=== PATIENT | female | born 1990 | race Caucasian/White ===

== ENCOUNTER 2018-08-05 17:22 | Emergency (ER) | payer OTHER ==
[~2018-08-05] VITALS: Ht 172.7 cm; Wt 94.4 kg
[~2018-08-05 17:22] MED LIST: ANUS2.5C2 EXT; DOCU5LIQ PO; IBUP600T26 PO; MAPA500T17 PO; MILK10SU PO; PRENTAB74 PO
[2018-08-05] MEDS ORDERED: MACR100C43 PO (20:19)
[2018-08-05 20:35] VITALS: BP 114/64
[2018-08-05 22:21] LABS: CHLAMYDIA DNA AMPLIFICATION POSITIVE (NEGATIVE); GC DNA AMPLIFICATION NEGATIVE (NEGATIVE)
== END 2018-08-05 20:36 | disposition home or self-care (01) ==
LOC: M ED 17:22
DX: N39.0 Urinary tract infection, site not specified (principal); N76.0 Acute vaginitis; Z86.19 Personal history of other infectious and parasitic diseases; Z87.59 Personal history of other complications of pregnancy, childbirth and the puerperium

== ENCOUNTER 2019-02-18 06:25 | Emergency (ER) | payer OTHER ==
[~2019-02-18] VITALS: Ht 172.7 cm; Wt 81.8 kg
[~2019-02-18 06:25] MED LIST changes: +MACR100C43 PO
[2019-02-18] MEDS ORDERED: SILVER NITRATE APPLICATOR TOP ONE (07:30)
[2019-02-18 07:49] VITALS: BP 103/66
== END 2019-02-18 07:45 | disposition home or self-care (01) ==
LOC: M ED 06:25
DX: R04.0 Epistaxis (principal)

== ENCOUNTER 2019-04-21 13:28 | Emergency (ER) | payer OTHER ==
[~2019-04-21] VITALS: Ht 172.7 cm; Wt 90.4 kg
[2019-04-21 16:39] LABS: BASO % 0.3 % (0.0-1.0); EOS # 0.1 10^3/uL (0.0-0.5); EOS % 1.8 % (0.0-3.0); HEMATOCRIT 40.4 % (36.0-47.0); HEMOGLOBIN 13.2 g/dl (12.0-15.5); LYMPH # 1.7 10^3/uL (1.5-5.0); LYMPH % 28.9 % (24.0-44.0); MEAN CORPUSCULAR HEMOGLOBIN 30.9 pg (27.0-33.0); MEAN CORPUSCULAR HGB CONC 32.7 g/dl (32.0-36.5); MEAN CORPUSCULAR VOLUME 94.6 fl (80.0-96.0); MONO # 0.3 10^3/uL (0.0-0.8); MONO % 5.5 % (0.0-5.0); NEUTROPHILS # 3.8 10^3/uL (1.5-8.5); NEUTROPHILS % 63.2 % (36.0-66.0); PLATELET COUNT, AUTOMATED 219 10^3/uL (150-450); RED BLOOD COUNT 4.27 10^6/uL (4.00-5.40)
--- NOTE | 2019-04-21 17:29 | REP ---
Left tib-fib series: Four views. History: Anterior edema. Findings: Four views of the left calf demonstrate normal bones, joints. There is mild anterolateral soft tissue swelling at mid calf level. No opaque foreign body is seen. No evidence of fracture noted. Impression: No fracture noted. Electronically Signed by Sg Coles MD 04/21/2019 05:20 P
[2019-04-21] MEDS ORDERED: KEFL500C17 PO (17:50)
[2019-04-21 17:58] VITALS: BP 115/57
== END 2019-04-21 18:05 | disposition home or self-care (01) ==
LOC: M ED 13:28
DX: L03.116 Cellulitis of left lower limb (principal)

== ENCOUNTER → 2020-05-15 | Outpatient (REF) | payer OTHER ==
[~2020-05-15] MED LIST changes: +KEFL500C17 PO
[2020-05-15 12:13] LABS: BASO % 0.2 % (0.0-1.0); EOS # 0.1 10^3/uL (0.0-0.5); EOS % 1.4 % (0.0-3.0); HEMATOCRIT 41.8 % (36.0-47.0); HEMOGLOBIN 12.9 g/dl (12.0-15.5); LYMPH # 1.3 10^3/uL (1.5-5.0); LYMPH % 23.7 % (24.0-44.0); MEAN CORPUSCULAR HEMOGLOBIN 30.3 pg (27.0-33.0); MEAN CORPUSCULAR HGB CONC 30.9 g/dl (32.0-36.5); MEAN CORPUSCULAR VOLUME 98.1 fl (80.0-96.0); MONO # 0.4 10^3/uL (0.0-0.8); MONO % 6.8 % (2.0-8.0); NEUTROPHILS # 3.8 10^3/uL (1.5-8.5); NEUTROPHILS % 67.5 % (36.0-66.0); PLATELET COUNT, AUTOMATED 153 10^3/uL (150-450); RED BLOOD COUNT 4.26 10^6/uL (4.00-5.40); WHITE BLOOD COUNT 5.6 10^3/uL (4.0-10.0)
[2020-05-15 13:35] LABS: ALBUMIN 3.6 GM/DL (3.2-5.2); ALT/SGPT 18 U/L (12-78); BILIRUBIN,TOTAL 0.3 MG/DL (0.2-1.0); BLOOD UREA NITROGEN 12 MG/DL (7-18); CALCIUM LEVEL 8.5 MG/DL (8.5-10.1); CARBON DIOXIDE LEVEL 26 MEQ/L (21-32); CHLORIDE LEVEL 108 MEQ/L (98-107); CHOLESTEROL LEVEL 172 MG/DL (<200); CHOLESTEROL RISK RATIO 3.071 (<5); CREATININE FOR GFR 0.88 MG/DL (0.55-1.30); GLOMERULAR FILTRATION RATE > 60.0 (>60); GLUCOSE, FASTING 98 MG/DL (70-100); HDL CHOLESTEROL 56 MG/DL (>40); LDL CHOLESTEROL 103 MG/DL (<100); NON-HDL-C 116 MG/DL; POTASSIUM SERUM 4.4 MEQ/L (3.5-5.1); SODIUM LEVEL 138 MEQ/L (136-145); TOTAL PROTEIN 6.8 GM/DL (6.4-8.2); TRIGLYCERIDES LEVEL 65 MG/DL (<150)
[2020-05-15 18:15] LABS: HEMOGLOBIN A1c 5.2 %
== END ==
LOC: M LAB REF 11:46
PROVIDERS: ATTEND Physician Assistant
DX: K59.00 Constipation, unspecified (principal); E66.9 Obesity, unspecified; Z13.228 Encounter for screening for other metabolic disorders

== ENCOUNTER → 2020-06-19 | Outpatient (CLI) | payer OTHER ==
--- NOTE | 2020-06-19 09:33 | REP ---
INDICATION: CERVICALGIA AND OTHER CHRONIC PAIN. COMPARISON: None. TECHNIQUE: Plain films of the thoracic spine include AP and lateral views. FINDINGS: No evidence of fracture or malalignment. Vertebral heights and disc heights overall appear preserved. Soft tissues appear grossly unremarkable. IMPRESSION: No acute findings. Normal for age thoracic spine. <Electronically signed by Tobias Del Valle > 06/19/20 0995
--- NOTE | 2020-06-19 09:34 | REP ---
INDICATION: CERVICALGIA AND OTHER CHRONIC PAIN. COMPARISON: None. TECHNIQUE: Plain films of the cervical spine include AP lateral and odontoid views. FINDINGS: There is straightening of the cervical spine and mild reversal of normal cervical lordosis. No evidence of fracture or malalignment. Vertebral heights and disc heights are overall preserved. Prevertebral soft tissues appear unremarkable. IMPRESSION: No acute findings. Normal cervical spine. <Electronically signed by Tobias Del Valle > 06/19/20 0931
--- NOTE | 2020-06-19 09:35 | REP ---
INDICATION: CERVICALGIA AND OTHER CHRONIC PAIN. COMPARISON: None. TECHNIQUE: Plain films of the lumbar spine include AP and lateral views. FINDINGS: No fracture or malalignment. Vertebral heights and disc heights appear preserved. No evidence of osseous foraminal narrowing. IMPRESSION: No acute findings. Normal examination. <Electronically signed by Tobias Del Valle > 06/19/20 0989
== END ==
LOC: M WUC 08:43
PROVIDERS: ATTEND Physician Assistant
DX: G89.29 Other chronic pain (principal); M54.2 Cervicalgia

== ENCOUNTER → 2020-08-25 | Outpatient (CLI) | payer OTHER ==
[~2020-08-25] MED LIST changes: +OMEP-221 PO
== END ==
LOC: M LABSMTC 08:04
PROVIDERS: ATTEND Anesthesiology
DX: Z11.52 Encounter for screening for COVID-19 (principal)

== ENCOUNTER 2020-08-30 09:00 | Day surgery (SDC) | payer OTHER ==
[~2020-08-30] VITALS: Ht 172.7 cm; Wt 91.2 kg
[~2020-08-30 09:00] MED LIST changes: +NS 1,000 ML IV ONE
[2020-08-30] MEDS ORDERED: propofoL 200 MG/20 ML VIAL As Ordered ONE (09:33)
[2020-08-30] MEDS ORDERED: fentaNYL 100 MCG/2 ML INJECTION (J3010) As Ordered ONE (09:33)
--- NOTE | 2020-08-30 09:53 | ROOR ---
Patient Name: Elisa Mohamud Procedure Date: 08/30/2020 9:41 AM Date of : 1990 Age: 30 Room: [facility] Gender: Female Note Status: Finalized Procedure: Upper GI endoscopy Indications: Suspected esophageal reflux Providers: Elias Stoddard Jr, MD Referring MD: Duc New Requesting Provider: Medicines: Propofol per Anesthesia Complications: No immediate complications. Procedure: Pre-Anesthesia Assessment: - Prior to the procedure, a History and Physical was performed, and patient medications and allergies were reviewed. The patient is competent. The risks and benefits of the procedure and the sedation options and risks were discussed with the patient. All questions were answered and informed consent was obtained. Patient identification and proposed procedure were verified by the physician and the nurse in the pre-procedure area and in the procedure room. Mental Status Examination: alert and oriented. Airway Examination: normal oropharyngeal airway and neck mobility. Respiratory Examination: clear to auscultation. CV Examination: normal. ASA Grade Assessment: II - A patient with mild systemic disease. After reviewing the risks and benefits, the patient was deemed in satisfactory condition to undergo the procedure. The anesthesia plan was to use moderate sedation / analgesia (conscious sedation). Immediately prior to administration of medications, the patient was re-assessed for adequacy to receive sedatives. The heart rate, respiratory rate, oxygen saturations, blood pressure, adequacy of pulmonary ventilation, and response to care were monitored throughout the procedure. The physical status of the patient was re-assessed after the procedure. The Endoscope was introduced through the mouth, and advanced to the second part of duodenum. The upper GI endoscopy was accomplished without difficulty. The patient tolerated the procedure well. Findings: The upper third of the esophagus, middle third of the esophagus and lower third of the esophagus were normal. The cardia, gastric fundus, gastric body, gastric antrum and prepyloric region of the stomach were normal. Biopsies were taken with a cold forceps for histology. The duodenal bulb, first portion of the duodenum and second portion of the duodenum were normal. Impression: - Normal upper third of esophagus, middle third of esophagus and lower third of esophagus. - Normal cardia, gastric fundus, gastric body, antrum and prepyloric region of the stomach. Biopsied. - Normal duodenal bulb, first portion of the duodenum and second portion of the duodenum. Recommendation: - Discharge patient to home (ambulatory). - Return to my office as previously scheduled. Procedure Code(s): --- Professional --- 56742, Esophagogastroduodenoscopy, flexible, transoral; with biopsy, single or multiple Diagnosis Code(s): --- Professional --- K21.9, Gastro-esophageal reflux disease without esophagitis CPT copyright 2019 [employer]. All rights reserved. The codes documented in this report are preliminary and upon estate tax examiner review may be revised to meet current compliance requirements. Elias Stoddard MD Elias Stoddard Jr, MD 08/30/2020 9:53:11 AM Electronically signed by Elias Stoddard Jr, MD Number of Addenda: 0 Note Initiated On: 08/30/2020 9:41 AM Estimated Blood Loss: Estimated blood loss: none.
--- NOTE | 2020-08-30 10:04 | ROOR ---
Patient Name: Elisa Mohamud Procedure Date: 08/30/2020 9:42 AM Date of : 1990 Age: 30 Room: [facility] Gender: Female Note Status: Finalized Procedure: Colonoscopy Indications: Rectal bleeding, Constipation Providers: Elias Stoddard Jr, MD Referring MD: Duc New Requesting Provider: Medicines: Propofol per Anesthesia Complications: No immediate complications. Procedure: Pre-Anesthesia Assessment: - Prior to the procedure, a History and Physical was performed, and patient medications and allergies were reviewed. The patient is competent. The risks and benefits of the procedure and the sedation options and risks were discussed with the patient. All questions were answered and informed consent was obtained. Patient identification and proposed procedure were verified by the physician and the nurse in the pre-procedure area and in the procedure room. Mental Status Examination: alert and oriented. Airway Examination: normal oropharyngeal airway and neck mobility. Respiratory Examination: clear to auscultation. CV Examination: normal. ASA Grade Assessment: II - A patient with mild systemic disease. After reviewing the risks and benefits, the patient was deemed in satisfactory condition to undergo the procedure. The anesthesia plan was to use moderate sedation / analgesia (conscious sedation). Immediately prior to administration of medications, the patient was re-assessed for adequacy to receive sedatives. The heart rate, respiratory rate, oxygen saturations, blood pressure, adequacy of pulmonary ventilation, and response to care were monitored throughout the procedure. The physical status of the patient was re-assessed after the procedure. The Colonoscope was introduced through the anus and advanced to the cecum, identified by appendiceal orifice and ileocecal valve. The colonoscopy was performed without difficulty. The patient tolerated the procedure well. The quality of the bowel preparation was adequate. Findings: The rectum, recto-sigmoid colon, sigmoid colon, descending colon, transverse colon, ascending colon, cecum, appendiceal orifice and ileocecal valve appeared normal. Non-bleeding internal hemorrhoids were found during endoscopy. The hemorrhoids were mild and small. Impression: - The rectum, recto-sigmoid colon, sigmoid colon, descending colon, transverse colon, ascending colon, cecum, appendiceal orifice and ileocecal valve are normal. - Non-bleeding internal hemorrhoids. - No specimens collected. Recommendation: - Return to my office as previously scheduled. Procedure Code(s): --- Professional --- 84754, Colonoscopy, flexible; diagnostic, including collection of specimen(s) by brushing or washing, when performed (separate procedure) Diagnosis Code(s): --- Professional --- K64.8, Other hemorrhoids K62.5, Hemorrhage of anus and rectum K59.00, Constipation, unspecified CPT copyright 2019 [employer]. All rights reserved. The codes documented in this report are preliminary and upon meals on wheels driver review may be revised to meet current compliance requirements. Elias Stoddard MD Elias Stoddard Jr, MD 08/30/2020 10:04:35 AM Electronically signed by Elias Stoddard Jr, MD Number of Addenda: 0 Note Initiated On: 08/30/2020 9:42 AM Estimated Blood Loss: Estimated blood loss: none.
[2020-08-30 10:25] VITALS: BP 122/57
== END 2020-08-30 10:30 | disposition home or self-care (01) ==
LOC: M OPP 09:00
PROVIDERS: ATTEND Surgery
DX: K62.5 Hemorrhage of anus and rectum (principal); K59.00 Constipation, unspecified; K64.8 Other hemorrhoids; R10.10 Upper abdominal pain, unspecified; K21.9 Gastro-esophageal reflux disease without esophagitis; R11.0 Nausea; F17.210 Nicotine dependence, cigarettes, uncomplicated
CPT/HCPCS: 43239; 45378; 88305; J3010

== ENCOUNTER → 2020-10-02 | Outpatient (CLI) | payer OTHER ==
[~2020-10-02] MED LIST changes: -NS 1,000 ML IV ONE; -OMEP-221 PO; +OMEP40CA5 PO
== END ==
LOC: M RAD 06:58
PROVIDERS: ATTEND Physician Assistant
DX: K80.20 Calculus of gallbladder without cholecystitis without obstruction (principal); R10.10 Upper abdominal pain, unspecified

== ENCOUNTER → 2020-11-01 | Outpatient (CLI) | payer OTHER ==
[~2020-11-01] MED LIST changes: +OMEP-221 PO; -OMEP40CA5 PO
== END ==
LOC: M LABSMTC 09:04
PROVIDERS: ATTEND Anesthesiology
DX: Z11.52 Encounter for screening for COVID-19 (principal)

== ENCOUNTER 2020-11-06 07:08 | Day surgery (SDC) | payer OTHER ==
[~2020-11-06] VITALS: Ht 172.7 cm; Wt 93.8 kg
[~2020-11-06 07:08] MED LIST changes: +LR 1,000 ML IV SCH; +ceFAZolin SOD 1 GM in D5W MINI-BAG PLUS 50 ML IV SCH
[2020-11-06] MEDS ORDERED: BUPIVACAINE/EPIN 0.25% 30 ML VIAL As Ordered ONE (08:50)
[2020-11-06] MEDS ORDERED: ONDANSETRON 4MG/2ML VIAL As Ordered ONE (09:19)
[2020-11-06] MEDS ORDERED: LIDOCAINE 2% 100MG/5ML SDV (FOR ANES.) As Ordered ONE (09:19)
[2020-11-06] MEDS ORDERED: fentaNYL 250 MCG/5 ML INJECTION (J3010) As Ordered ONE (09:19)
[2020-11-06] MEDS ORDERED: SUGAMMADEX SODIUM 500 MG/5 ML VIAL (BRIDION) As Ordered ONE (09:19)
[2020-11-06] MEDS ORDERED: KETOROLAC 60MG 2ML VIAL As Ordered ONE (09:19)
[2020-11-06] MEDS ORDERED: propofoL 200 MG/20 ML VIAL As Ordered ONE (09:19)
[2020-11-06] MEDS ORDERED: ROCURONIUM BROMIDE 50 MG/5 ML VIAL As Ordered ONE (09:19)
[2020-11-06] MEDS ORDERED: dexameTHASONE 4 MG/ML 1ML VIAL (J1100 PER 1MG) As Ordered ONE (09:19)
[2020-11-06] MEDS ORDERED: MIDAZOLAM INJ 2MG/2ML VIAL (J2250 PER 1MG) As Ordered ONE (09:19)
[2020-11-06] MEDS ORDERED: ACETAMINOPHEN 1000MG 100ML IV BTL (OFIRMEV) (J0131 PER 10MG) As Ordered ONE (09:23)
[2020-11-06] MEDS ORDERED: PHENYLephrine 500MCG 5ML (100MCG/ML) SYRINGE As Ordered ONE (09:53)
[2020-11-06] MEDS ORDERED: oxyCODONE 5MG TAB PO PRN (10:25)
[2020-11-06] MEDS ORDERED: traMADol 50 MG TAB PO PRN (10:25)
[2020-11-06] MEDS ORDERED: LR 1,000 ML IV SCH (10:25)
[2020-11-06] MEDS ORDERED: fentaNYL 100 MCG/2 ML INJECTION (J3010) IV PRN (10:25)
[2020-11-06] MEDS ORDERED: ONDANSETRON 4MG/2ML VIAL IV PRN (10:25)
[2020-11-06] MEDS ORDERED: NS 1,000 ML IV SCH (10:30)
--- NOTE | 2020-11-06 10:33 | RO ---
OPERATIVE NOTE DATE OF OPERATION: 11/06/2020 PREOPERATIVE DIAGNOSIS: Acute cholecystitis. POSTOPERATIVE DIAGNOSIS: Acute cholecystitis. PROCEDURE: Laparoscopic cholecystectomy. SURGEON: Elias Stoddard Jr., MD. STATEMENT CLERKS SUPERVISOR: ANESTHESIA: General endotracheal anesthesia. EBL: Minimal. FLUIDS: Crystalloid. BRIEF PROCEDURE SUMMARY: Patient was brought to the operating room and was given general anesthesia. After adequate anesthesia was given, the patient was prepped and draped in the usual sterile fashion. Next, a supraumbilical incision was made with the skin knife. Blunt dissection was carried down to fascia. Fascia was entered with Veress needle, and Veress needle insufflated to 15 mmHg. A dilating 10 mm trocar was placed at this time, and under direct visualization an epigastric and two lateral trocars were placed. Next, the patient's gallbladder was grasped, retracted superiorly, and the neck of the gallbladder was cleared of peritoneum using hook cautery. The cystic artery was well visualized, followed up under the gallbladder, and the cystic duct was well visualized as well. Once a window overlying the neck of the gallbladder was created, cystic artery was clipped proximally and distally and transected. The cystic duct then was dissected even further at this point and clipped proximally and distally and transected. The gallbladder was removed from the gallbladder bed using electrocautery, placed in an Endo-Cath bag, and brought out through the umbilicus. 0 Vicryl was used to close the fascia at the umbilicus, and all incisions were closed with 4-0 Vicryl. Steri-Strips and a dry sterile dressing were applied. The patient was awakened, extubated, and brought to the recovery room awake, alert, and hemodynamically stable. Sponge and needle counts were correct x2.
[2020-11-06 11:25] VITALS: BP 123/68
== END 2020-11-06 11:28 | disposition home or self-care (01) ==
LOC: M SDC 07:08
PROVIDERS: ATTEND Surgery
DX: K80.10 Calculus of gallbladder with chronic cholecystitis without obstruction (principal); F41.9 Anxiety disorder, unspecified; F32.9 Major depressive disorder, single episode, unspecified; R12 Heartburn; M54.9 Dorsalgia, unspecified; R21 Rash and other nonspecific skin eruption; R06.83 Snoring; F17.210 Nicotine dependence, cigarettes, uncomplicated; Z79.899 Other long term (current) drug therapy; F12.90 Cannabis use, unspecified, uncomplicated
CPT/HCPCS: 47562; 81025; 88304; J0131; J0690; J1100; J1885; J2250; J2370; J2405; J3010

== ENCOUNTER 2020-12-18 08:50 | Emergency (ER) | payer OTHER ==
[~2020-12-18] VITALS: Ht 175.3 cm; Wt 88.6 kg
[~2020-12-18 08:50] MED LIST changes: -LR 1,000 ML IV SCH; -ceFAZolin SOD 1 GM in D5W MINI-BAG PLUS 50 ML IV SCH
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
--- OUTSIDE RECORDS SUMMARY | 2020-12-18 08:57 | CCD | Continuity of Care Document ---
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 AUTM Problems Description No Information Available Social History Type Date Description Comments Sex Unknown ETOH Use Denies alcohol use Tobacco Use Start: Unknown Patient is a current smoker, smo kes every day x4 years Recreational Drug Use Regularly uses Marijuana Allergies, Adverse Reactions, Alerts Description No Known Drug Allergies Medications Active Medications SIG Qnty Indications Ordering Provide r Date Colace 100mg Capsules 1 by mouth twice a day as needed 60caps K80.10 Preet Mancini M.D. 11/20/2020 Tramadol HCL 50mg Tablets 1-2 every 6 hours as needed for pain after surgery 14tabs Elias matta JR, MD 11/06/[address] Take 1 Capsule By Mouth Once Daily Unknown History Medications Miralax 17GM/Scoop Powder use as instructed by doctor for bowel prep 238gm Elias james JR, MD 08/28/2020 - 08/28/[address] as instructed per bowel prep 4tabs Elias Stoddard JR, MD 08/28/2020 - 08/28/2020 Suprep Bowel Prep Kit 17.5-3.13-1.6GM/177ML Solution take per doctor's bowel prep instructions. 354ml Preet Mancini M.D. 08/16/2020 - 09/10/2020 Immunizations Description No Information Available Vital Signs Date Vital Result Comment 11/20/2020 9:09am BP Systolic 120 mmHg BP Diastolic 58 mmHg Body Temperature 98.6 F Height 68 inches 5'8" Weight 196.25 lb BMI (Body Mass Index) 29.8 kg/m2 [place] Body Weight 140 lb Weight 89.019 kg BSA (Body Surface Area) 2.03 m2 10/03/2020 8:43am BP Systolic 119 mmHg BP Diastolic 76 mmHg Heart Rate 74 /min Body Temperature 98.5 F Height 68 inches 5'8" Weight 207.50 lb BMI (Body Mass Index) 31.5 kg/m2 [place] Body Weight 140 lb Weight 94.122 kg BSA (Body Surface Area) 2.08 m2 Results Test Acquired Date Facility Test Result H/L [place] Note Laboratory test finding 11/06/2020 [facility] [address] [place] [address] [phone] Pathology Request For Service (SEE NOTE) 1 Laboratory test finding 08/30/2020 [facility] [address] [place] [address] [phone] Pathology Request For Service (SEE NOTE) 2 1 FINAL DIAGNOSIS Gallbladder, cholecystectomy: Cholelithiasis and chronic cholecystitis. 11/07/2020 - 1009 CLINICAL DIAGNOSIS Gallstones 11/06/2020 - 1330 GROSS DIAGNOSIS Received in formalin labeled "gallbladder and content" is an approximately 7 x 4 x 2 cm gallbladder. The serosal lining is smooth. The lumen contains a 1 cm green gallstone. The mucosal lining is smooth. The wall is maximally 0.8 cm in thickness. Vamp Marker in one. -SH 11/06/2020 - 1330 Signed Asher Perez MD 11/07/2020 1125 2 FINAL DIAGNOSIS Stomach, antral biopsy: Gastric mucosa with minimal inflammation and reactive changes. No H.pylori is identified. 08/31/2020 - 1232 CLINICAL DIAGNOSIS Gastroesophageal reflux, rectal pain, bleeding 08/30/2020 - 1504 GROSS DIAGNOSIS Received in formalin labeled "antral biopsy" and consists of fragments of tissue, 0.1 x 0.1 x 0.1 cm. All in one. -OA 08/31/2020 - 1232 Signed JAY BLOCK MD 08/31/2020 1233 Procedures Date Code Description Status 11/06/2020 86138 Laparoscopy,Surgical;Cholecystec tressa Completed 10/03/2020 08910 Office/Outpatient Established Mo d MDM 30-39 Min Completed 09/13/2020 39820 Office/Outpatient Established Mo d MDM 30-39 Min Completed 08/30/2020 53431 Colonoscopy Flexible Proximal To Splenic Flexure Diagnostic W/Or Completed 08/30/2020 90341 Endoscopy Upper GI Biopsy Comple zac 07/04/2020 68834 Office/Outpatient New Moderate M DM 45-59 Minutes Completed Medical Devices Description No Information Available Encounters Type Date Location Provider Dx Diagnosis Office Visit 11/20/2020 9:00a [facility] SOHAIL Roche K80.10 Calculus of gallbladder w chronic cholec yst w/o obstruction Z48.815 Encntr for surgical aftcr fo llowing surgery on the dgstv sys Z90.49 Acquired absence of other sp ecified parts of digestive tract Office Visit 10/03/2020 8:45a [facility] Elias matta JR, MD K80.20 Calculus of gallbladder w/o cholecystiti s w/o obstruction Office Visit 09/13/2020 10:00a [facility] SOHAIL Roche R10.10 Upper abdominal pain, unspecified K21.9 Gastro-esophageal reflux dis ease without esophagitis K59.00 Constipation, unspecified Office Visit 07/04/2020 9:15a [facility] SOHAIL Roche K21.9 Gastro-esophageal reflux disease without esophagitis R10.10 Upper abdominal pain, unspec ified K59.00 Constipation, unspecified K62.5 Hemorrhage of anus and rectu m Assessments Date Code Description Provider 11/20/2020 K80.10 Calculus of gallblad majo with chronic cholecystitis without obstruction SOHAIL Thorpe 11/20/2020 Z48.815 Encounter for surgic al aftercare following surgery on the digestive system SOHAIL Thorpe 11/20/2020 Z90.49 Acquired absence of other specif ied parts of digestive tract SOHAIL Thorpe 11/06/2020 K80.10 Calculus of gallblad majo with chronic cholecystitis without obstruction Elias Stoddard JR, MD 10/03/2020 K80.20 Calculus of gallblad majo without cholecystitis without obstruction Elias Stoddard JR, MD 09/13/2020 R10.10 Upper abdominal pain, unspecifie d SOHAIL Thorpe 09/13/2020 K21.9 Gastro-esophageal reflux disease without esophagitis SOHAIL Thorpe 09/13/2020 K59.00 Constipation, unspecified SOHAIL Thorpe 08/30/2020 K62.5 Hemorrhage of anus and rectum Adele Stoddard JR, MD 08/30/2020 K64.8 Other hemorrhoids Elias rubi JR, MD 08/30/2020 K59.00 Constipation, unspecified Elias Stoddard JR, MD 08/30/2020 K21.9 Gastro-esophageal reflux disease without esophagitis Elias Stoddard JR, MD 07/04/2020 K21.9 Gastro-esophageal reflux disease without esophagitis SOHAIL Thorpe 07/04/2020 R10.10 Upper abdominal pain, unspecifie d SOHAIL Thorpe 07/04/2020 K59.00 Constipation, unspecified SOHAIL Thorpe 07/04/2020 K62.5 Hemorrhage of anus and rectum SOHAIL Rouse Plan of Treatment 11/20/2020 - SOHAIL Thorpe* K80.10 Calculus of gallbladder with chronic cholecystitis without obstruction* New Medication:* Colace 100 mg - 1 by mouth twice a day as needed * Z48.815 Encounter for surgical aftercare following surgery on the digestive system * Z90.49 Acquired absence of other specified parts of digestive tract Functional Status Description No Information Available Mental Status Description No Information Available Referrals Description No Information Available
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
--- OUTSIDE RECORDS SUMMARY | 2020-12-18 08:57 | CCD | Continuity of Care Document ---
Author Author Daisy ANDREA P.T. 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 Phone Nancy Amato AUTM [phone] Problems Description No Information Available Social History Type Date Description Comments Sex Unknown Allergies and adverse reactions Description No Known Drug Allergies Medications Active Medications SIG Qnty Indications Ordering Provide r Date Omeprazole 10mg Capsules DR Alexis Immunizations Description No Information Available Vital Signs Date Vital Result Comment 10/03/2020 11:46am Height 68 inches 5'8" Weight 206.00 lb BMI (Body Mass Index) 31.3 kg/m2 Results Description No Information Available Procedures Date Code Description Status 11/01/2020 06445 Manual Therapy Each 15 Minutes C ompleted 11/01/2020 57568 Therapeutic Procedure, Each 15 M inutes Completed 10/29/2020 24768 Manual Therapy Each 15 Minutes C ompleted 10/29/2020 41229 Therapeutic Procedure, Each 15 M inutes Completed 10/29/2020 34297 Hot Or Cold Packs Completed 10/25/2020 16402 Manual Therapy Each 15 Minutes C ompleted 10/25/2020 48690 Therapeutic Procedure, Each 15 M inutes Completed 10/25/2020 00289 Hot Or Cold Packs Completed 10/23/2020 05965 Manual Therapy Each 15 Minutes C ompleted 10/23/2020 23890 Therapeutic Procedure, Each 15 M inutes Completed 10/15/2020 97822 Physical Therapy Eval - Low Comp lexity Completed 10/03/2020 63238 Office/Outpatient New Moderate M DM 45-59 Minutes Completed Medical Devices Description No Information Available Encounters Type Date Location Provider Dx Diagnosis Office Visit 10/03/2020 11:30a [facility] Jama Camargo MD M54.2 Cervicalgia M54.5 Low back pain M47.892 Other spondylosis, cervical region M51.36 Other intervertebral disc de generation, lumbar region Assessments Date Code Description Provider 11/01/2020 M54.2 Cervicalgia Danamarie Ortola no, [employer] 11/01/2020 M54.5 Low back pain Danamarie Ortola no, [employer] 10/29/2020 M54.2 Cervicalgia Danamarie Ortola no, [employer] 10/29/2020 M54.5 Low back pain Danamarie Ortola no, [employer] 10/25/2020 M54.2 Cervicalgia Danamarie Ortola no, [employer] 10/25/2020 M54.5 Low back pain Danamarie Ortola no, [employer] 10/23/2020 M54.2 Cervicalgia Danamarie Ortola no, [employer] 10/23/2020 M54.5 Low back pain Danamarie Ortola no, [employer] 10/15/2020 M54.2 Cervicalgia Tra Andrea P .T. 10/15/2020 M54.5 Low back pain Tra Andrea P .T. 10/03/2020 M54.2 Cervicalgia Jama Camargo MD 10/03/2020 M54.5 Low back pain Jama Camargo MD 10/03/2020 M47.892 Other spondylosis, cervical christi on Jama Camargo MD 10/03/2020 M51.36 Other intervertebral disc degene ration, lumbar region Jama Camargo MD Plan of Treatment Future Appointment(s):* 12/14/2020 10:00 am - Dipika Lomelie P.T.A. at Physical Therapy * 12/11/2020 9:30 am - Dipika Pedroza P.T.A. at Physical Therapy Functional Status Description No Information Available Mental Status Description No Information Available Referrals Refer to Dr Reason for Referral Status Appt Date Jama Camargo MD PT - 10 VISITS OK'D FOR CS/L S FROM 10/17-01/15/21, AUTH# [id number], RES# [id number] Created [address] [place] [address], [address] [place] [phone] Jama Camargo MD Physical Therapy spine patie nt is allowed eval then need auth to PT dept, patient is going to [facility], passed to PT dept sw. Created [address] [place] [address], [address] [phone]
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
--- OUTSIDE RECORDS SUMMARY | 2020-12-18 08:57 | CCD | Continuity of Care Document ---
Author Author Elisa GUIDRY [place] Organization Unknown Address [address] [facility] [address] [place] [address] Phone [phone] Care Team Providers Care Mortarman Name Role Phone Marva Lynn P.A.-C. AUTM [...] SIG Qnty Indications Ordering Provide r Date Tramadol HCL 50mg Tablets 1-2 every 6 [...] lb BMI (Body Mass Index) 29.8 kg/m2 [place] Body Weight 140 lb Weight 89.019 kg BSA (Body Surface Area) 2.03 m2 10/03/2020 8:43am BP Systolic 119 mmHg BP Diastolic 76 mmHg Heart Rate 74 /min Body Temperature 98.5 F Height 68 inches 5'8" Weight 207.50 lb BMI (Body Mass Index) 31.5 kg/m2 [place] Body Weight 140 lb Weight 94.122 kg BSA (Body Surface Area) 2.08 m2 Results Test Acquired Date Facility Test Result H/L Range Note Laboratory test finding 11/06/2020 [facility] Main Lab [address] [place] [address] [phone] Pathology Request For Service (SEE NOTE) 1 Laboratory test finding 08/30/2020 [facility] Lab [address] [place] [address] [phone] Pathology Request For Service (SEE NOTE) 2 [...] wall is maximally 0.8 cm in thickness. Journeyman Apprentice Electricians in one. -SH 11/06/2020 - 1330 Signed Asher Perez MD 11/07/2020 1125 2 FINAL DIAGNOSIS Stomach, antral biopsy: Gastric mucosa with minimal inflammation and reactive changes. No H.pylori is identified. 08/31/2020 - 123 CLINICAL DIAGNOSIS Gastroesophageal reflux, rectal pain, bleeding 08/30/2020 - 1504 GROSS DIAGNOSIS Received in formalin labeled "antral biopsy" and consists of fragments of tissue, 0.1 x 0.1 x 0.1 cm. All in one. -OA 08/31/2020 - 1232 Signed JAY BLOCK MD 08/31/2020 1233 Procedures Date Code Description Status 11/06/2020 32959 Laparoscopy,Surgical;Cholecystec tressa Completed 10/03/2020 87609 Office/Outpatient Established Mo d MDM 30-39 Min Completed 09/13/2020 64224 Office/Outpatient Established Mo d MDM 30-39 Min Completed 08/30/2020 90935 Colonoscopy Flexible Proximal To Splenic Flexure Diagnostic W/Or Completed 08/30/2020 62619 Endoscopy Upper GI Biopsy Comple zac 07/04/2020 44815 Office/Outpatient New Moderate M DM 45-59 Minutes Completed Medical Devices Description No Information Available Encounters Type Date Location Provider Dx Diagnosis Office Visit 10/03/2020 8:45a [facility] Elias matta JR, MD K80.20 Calculus of gallbladder w/o cholecystiti s w/o obstruction Office Visit 09/13/2020 10:00a [facility] SOHAIL Roche R10.10 Upper abdominal pain, unspecified K21.9 Gastro-esophageal reflux dis ease without esophagitis K59.00 Constipation, unspecified Office Visit 07/04/2020 9:15a [facility] SOHAIL Roche K21.9 Gastro-esophageal reflux disease without esophagitis R10.10 Upper abdominal pain, unspec ified K59.00 Constipation, unspecified K62.5 Hemorrhage of anus and rectu m Assessments Date Code Description Provider 11/06/2020 K80.10 Calculus of gallblad majo with [...] 08/30/2020 K21.9 Gastro-esophageal reflux disease without esophagitis lEias Stoddard JR, MD 07/04/2020 K21.9 Gastro-esophageal reflux disease without esophagitis SOHAIL Thorpe 07/04/2020 R10.10 Upper abdominal pain, unspecifie d SOHAIL Thorpe 07/04/2020 K59.00 Constipation, unspecified SOHAIL Thorpe 07/04/2020 K62.5 Hemorrhage of anus and rectum SOHAIL Rouse Plan of Treatment No Information Available Functional Status Description No Information Available Mental Status Description No Information Available Referrals Refer to Dr Reason for Referral Status Appt Date Preet Mancini M.D. GERD Scheduled 05/25/2020 [facility] [address] [place] [address] [phone]
--- OUTSIDE RECORDS SUMMARY | 2020-12-18 08:58 | CCD | Continuity of Care Document ---
Author Author Elisa STODDARD MD Organization Unknown Address [address] [address] Phone [phone] Care Team Providers Care Test Operator Name Role Phone Marva Lynn P.A.-C. AUTM [phone] Problems Description No Information Available Social History [...] Vital Signs Date Vital Result Comment 10/03/2020 8:43am BP Systolic 119 mmHg BP Diastolic 76 mmHg Heart Rate 74 /min Body Temperature 98.5 F Height 68 inches 5'8" Weight 207.50 lb BMI (Body Mass Index) 31.5 kg/m2 [place] Body Weight 140 lb Weight 94.122 kg BSA (Body Surface Area) 2.08 m2 09/13/2020 10:02am BP Systolic 114 mmHg BP Diastolic 58 mmHg Height 68 inches 5'8" Weight 209.25 lb BMI (Body Mass Index) 31.8 kg/m2 [place] Body Weight 140 lb Weight 94.916 kg BSA (Body Surface Area) 2.08 m2 Results Test Acquired Date Facility Test Result H/L Range Note Laboratory test finding 11/06/2020 [facility] Main Lab [address] [place], [place] [id number] [phone] Pathology Request For Service (SEE NOTE) 1 Laboratory test finding 08/30/2020 [facility] Main Lab [address] [place] [address] [phone] Pathology Request For Service (SEE NOTE) 2 [...] wall is maximally 0.8 cm in thickness. Greeting Card Writer in one. -SH 11/06/2020 - 1330 Signed [...] 08/31/2020 1233 Procedures Date Code Description Status 10/03/2020 37469 Office/Outpatient Established Mo d MDM 30-39 Min Completed 09/13/2020 24396 Office/Outpatient Established Mo d MDM 30-39 Min Completed 08/30/2020 49534 Colonoscopy Flexible Proximal To Splenic Flexure Diagnostic W/Or Completed 08/30/2020 81947 Endoscopy Upper GI Biopsy Comple zac 07/04/2020 02186 Office/Outpatient New Moderate M DM 45-59 Minutes Completed Medical Devices Description No Information Available Encounters Type Date Location Provider Dx Diagnosis Office Visit 10/03/2020 8:45a [facility] Elias matta JR, MD K80.20 Calculus of gallbladder w/o cholecystiti s w/o obstruction Office Visit 09/13/2020 10:00a [facility] SOHAIL Roche R10.10 Upper abdominal pain, unspecified K21.9 Gastro-esophageal reflux dis ease without esophagitis K59.00 Constipation, unspecified Office Visit 07/04/2020 9:15a [facility] SOHAIL Roche K21.9 Gastro-esophageal reflux disease without esophagitis R10.10 Upper abdominal pain, unspec ified K59.00 Constipation, unspecified K62.5 Hemorrhage of anus and rectu m Assessments Date Code Description Provider 10/03/2020 K80.20 Calculus of gallblad majo without [...] and rectum SOHAIL Rouse Plan of Treatment Future Appointment(s):* 11/20/2020 1:00 pm - SOHAIL Thorpe at [facility] 10/03/2020 - Elias Stoddard JR, MD* K80.20 Calculus of gallbladder without cholecystitis without obstruction* Comments:* The patient had an episode of right upper quadrant pain/epigastric pain associated with gallstones. The patient had evidence of cholecystitis without evidence of common bile duct obstruction. Given their symptomatic disease and evidence of gallstones would recommend laparoscopic cholecystectomy. The risks as well as benefits of operative intervention have been discussed extensively with the patient and they agreed to proceed with operative intervention as soon as possible. The risks include but are not limited to infection bleeding damage to surrounding structures including liver and pancreas and duodenum bile ducts or bowel and possible need for open operative intervention. Functional Status Description No Information Available Mental Status Description No Information Available Referrals Refer to Reason for Referral Status Appt Date Preet Mancini M.D. GERD Scheduled 05/25/2020 [facility] [address] [place] [address] [phone]
--- OUTSIDE RECORDS SUMMARY | 2020-12-18 08:58 | CCD | Continuity of Care Document ---
Author Author Daisy SNYDER SUPERVISOR BAKING Organization Unknown Address [address] [place] [address] Phone [phone] Care Team Providers Care Floor Layer Apprentice Name Role Phone AmatoNancy AUTM [phone] Problems Description No Information Available Social History Type Date Description Comments Sex Unknown Allergies, Adverse Reactions, Alerts Description No Known Drug Allergies Medications Active Medications SIG Qnty Indications Ordering Provide r Date Omeprazole 10mg Capsules DR Aelxis Immunizations Description No Information Available Vital Signs Date Vital Result Comment 10/03/2020 11:46am Height 68 inches 5'8" Weight 206.00 lb BMI (Body Mass Index) 31.3 kg/m2 Results Description No Information Available Procedures Date Code Description Status 10/23/2020 68694 Manual Therapy Each 15 Minutes C ompleted 10/23/2020 56824 Therapeutic Procedure, Each 15 M inutes Completed 10/15/2020 61183 Physical Therapy Eval - Low Comp lexity Completed 10/03/2020 54250 Office/Outpatient New Moderate M DM 45-59 Minutes Completed Medical Devices Description No Information Available Encounters Type Date Location Provider Dx Diagnosis Office Visit 10/03/2020 11:30a [place] Jama Camargo MD M54.2 Cervicalgia M54.5 Low back pain M47.892 Other spondylosis, cervical region M51.36 Other intervertebral disc de generation, lumbar region Assessments Date Code Description Provider 10/23/2020 M54.2 Cervicalgia Danamarie Ortola no, SUPERVISOR BAKING 10/23/2020 M54.5 Low back pain Danamarie Ortola no, SUPERVISOR BAKING 10/15/2020 M54.2 Cervicalgia Tra Almaraz 10/15/2020 M54.5 Low back pain Tra Andrea P .T. 10/03/2020 M54.2 Cervicalgia Jama Camargo MD 10/03/2020 M54.5 Low back pain Jama Camargo MD 10/03/2020 M47.892 Other spondylosis, cervical christi on Jama Camargo MD 10/03/2020 M51.36 Other intervertebral disc degene ration, lumbar region Jama Camargo MD Plan of Treatment Future Appointment(s):* 10/29/2020 8:00 am - Ирина Snyder, SUPERVISOR BAKING at Physical Therapy * 11/01/2020 8:00 am - Ирина Snyder [employer]PERVISOR BAKING at Physical Therapy Functional Status Description No Information Available Mental Status Description No Information Available Referrals Refer to Dr Reason for Referral Status Appt Date Jama Camargo MD PT - 10 VISITS OK'D FOR CS/L S FROM 10/17-01/15/21, AUTH# [id number], RES# [id number] Created [address] [place] [phone] Jama Camargo MD Physical Therapy spine patie nt is allowed eval then need auth to PT dept, patient is going to [facility], passed to PT dept sw. Created [address] [place] [phone]
--- OUTSIDE RECORDS SUMMARY | 2020-12-18 08:58 | CCD | Continuity of Care Document ---
Author Author Elisa GUIDRY [place] Organization Unknown Address [address] [facility] [address] [place] [address] Phone [phone] Care Team Providers Care Collar Sewer Name Role Phone Marva Lynn P.A.-C. AUTM [phone] Problems Description No Information Available Social History Type Date Description Comments Sex Unknown ETOH Use Denies alcohol use Tobacco Use Start: Unknown Patient is a current smoker, smo kes every day x4 years Recreational Drug Use Regularly uses Marijuana Allergies, Adverse Reactions, Alerts Description No Known Drug Allergies Medications Active Medications SIG Qnty Indications Ordering Provide r Date Omeprazole 40mg Capsules DR Take 1 Capsule [...] Available Vital Signs Date Vital Result Comment 09/13/2020 10:02am BP Systolic 114 mmHg BP Diastolic 58 mmHg Height 68 inches 5'8" Weight 209.25 lb BMI (Body Mass Index) 31.8 kg/m2 [place] Body Weight 140 lb Weight 94.916 kg BSA (Body Surface Area) 2.08 m2 07/04/2020 9:21am BP Systolic 124 mmHg BP Diastolic 78 mmHg Height 68 inches 5'8" Weight 204.38 lb BMI (Body Mass Index) 31.1 kg/m2 [place] Body Weight 140 lb Weight 92.704 kg BSA (Body Surface Area) 2.06 m2 Results Test Acquired Date Facility Test Result H/L Range Note Laboratory test finding 08/30/2020 [facility] [address] [place] [address] [phone] Pathology Request For Service (SEE NOTE) 1 1 FINAL DIAGNOSIS Stomach, antral biopsy: Gastric mucosa with minimal inflammation and reactive changes. No H.pylori is identified. 08/31/2020 - 1233 CLINICAL DIAGNOSIS Gastroesophageal reflux, rectal pain, bleeding 08/30/2020 - 1504 GROSS DIAGNOSIS Received in formalin labeled "antral biopsy" and consists of fragments of tissue, 0.1 x 0.1 x 0.1 cm. All in one. -OA 08/31/2020 - 1233 Signed JAY BLOCK MD 08/31/2020 1233 Procedures Date Code Description Status 09/13/2020 77392 Office/Outpatient Established Mo d MDM 30-39 Min Completed 08/30/2020 04733 Colonoscopy Flexible Proximal To Splenic Flexure Diagnostic W/Or Completed 08/30/2020 94406 Endoscopy Upper GI Biopsy Comple zac 07/04/2020 48946 Office/Outpatient New Moderate M DM 45-59 Minutes Completed Medical Devices Description No Information Available Encounters Type Date Location Provider Dx Diagnosis Office Visit 09/13/2020 10:00a [facility] SOHAIL Roche R10.10 Upper abdominal pain, unspecified K21.9 Gastro-esophageal reflux dis ease without esophagitis K59.00 Constipation, unspecified Office Visit 07/04/2020 9:15a [facility] SOHAIL Roche K21.9 Gastro-esophageal reflux disease without esophagitis R10.10 Upper abdominal pain, unspec ified K59.00 Constipation, unspecified K62.5 Hemorrhage of anus and rectu m Assessments Date Code Description Provider 09/13/2020 R10.10 Upper abdominal pain, unspecifie d [...] and rectum SOHAIL Rouse Plan of Treatment 09/13/2020 - SOHAIL Thorpe* R10.10 Upper abdominal pain, unspecified* New Xrays:* Ultrasound Abdomen Limited, Ordered: 09/13/20 * K21.9 Gastro-esophageal reflux disease without esophagitis * K59.00 Constipation, unspecified Functional Status Description No Information Available Mental Status Description No Information Available Referrals Refer to Reason for Referral Status Appt Date Preet Mancini M.D. GERD Scheduled 05/25/2020 [facility] [address] [place] [address] [phone]
--- OUTSIDE RECORDS SUMMARY | 2020-12-18 08:58 | CCD | Continuity of Care Document ---
Author Author Daisy SNYDER [facility] Organization Unknown Address [address] [place] [address] Phone [phone] Care Team Providers Care Ingredient Specialist Name Role Phone Nancy Amato AUTM [phone] Problems Description No Information Available Social History [...] Information Available Procedures Date Code Description Status 10/29/2020 16160 Manual Therapy Each 15 Minutes C ompleted 10/29/2020 56722 Therapeutic Procedure, Each 15 M inutes Completed 10/29/2020 24640 Hot Or Cold Packs Completed 10/25/2020 62583 Manual Therapy Each 15 Minutes C ompleted 10/25/2020 27610 Therapeutic Procedure, Each 15 M inutes Completed 10/25/2020 21392 Hot Or Cold Packs Completed 10/23/2020 30401 Manual Therapy Each 15 Minutes C ompleted 10/23/2020 68140 Therapeutic Procedure, Each 15 M inutes Completed 10/15/2020 70988 Physical Therapy Eval - Low Comp lexity Completed 10/03/2020 41490 Office/Outpatient New Moderate M DM 45-59 Minutes Completed Medical Devices Description No Information Available Encounters Type Date Location Provider Dx Diagnosis Office Visit 10/03/2020 11:30a [place] Jama Camargo MD M54.2 Cervicalgia M54.5 Low back pain M47.892 Other spondylosis, cervical region M51.36 Other intervertebral disc de generation, lumbar region Assessments Date Code Description Provider 10/25/2020 M54.2 Cervicalgia Danamarie Ortola no, MANUFACTURING TECHNICIAN 10/25/2020 M54.5 Low back pain Danamarie Ortola no, MANUFACTURING TECHNICIAN 10/23/2020 M54.2 Cervicalgia Danamarie Ortola no, MANUFACTURING TECHNICIAN 10/23/2020 M54.5 Low back pain Danamarie Ortola no, MANUFACTURING TECHNICIAN 10/15/2020 M54.2 Cervicalgia Tra Andrea P .T. 10/15/2020 M54.5 Low back pain Tra Andrea P .T. 10/03/2020 M54.2 Cervicalgia Jama Camargo MD 10/03/2020 M54.5 Low back pain Jama Camargo MD 10/03/2020 M47.892 Other spondylosis, cervical christi on Jama Camargo MD 10/03/2020 M51.36 Other intervertebral disc degene ration, lumbar region Jama Camargo MD Plan of Treatment Future Appointment(s):* 11/01/2020 8:00 am - Ирина Snyder PTA at Physical Therapy Functional Status Description No Information Available Mental Status Description No Information Available Referrals Refer to Dr Reason for Referral Status Appt Date Jama Camargo MD PT - 10 VISITS OK'D FOR CS/L S FROM 10/17-01/15/21, AUTH# [id number], RES# [id number] Created [address] [place] [phone] Jama Camargo MD Physical Therapy spine patie nt is allowed eval then need auth to PT dept, patient is going to [facility], passed to PT dept sw. Created [address] [place] [phone]
--- OUTSIDE RECORDS SUMMARY | 2020-12-18 08:58 | CCD | Continuity of Care Document ---
Author Author Elisa ROSS MD Organization Unknown Address [address] [place] [phone] Phone [phone] Care Team Providers Care Fur Buyer Name Role Phone Nancy Amato SOHAIL AUTM [phone] Problems Description No Information Available Social History Type Date Description Comments Sex Unknown Allergies, Adverse Reactions, Alerts Description No Information Available Medications Description No Information Available Immunizations Description No Information Available Vital Signs Date Vital Result Comment 10/03/2020 11:46am Height 68 inches 5'8" Weight 206.00 lb BMI (Body Mass Index) 31.3 kg/m2 Results Description No Information Available Procedures Description No Information Available Medical Devices Description No Information Available Encounters Description No Information Available Assessments Date Code Description Provider 10/03/2020 M54.2 Cervicalgia Jama Ross MD 10/03/2020 M54.5 Low back pain Jama Ross MD 10/03/2020 M47.892 Other spondylosis, cervical christi on Jama Ross MD 10/03/2020 M51.36 Other intervertebral disc degene ration, lumbar region Jama Ross MD Plan of Treatment 10/03/2020 - Jama Ross MD* M54.2 Cervicalgia* Follow up:* in 6 weeks with PA * M54.5 Low back pain * M47.892 Other spondylosis, cervical region * M51.36 Other intervertebral disc degeneration, lumbar region Functional Status Description No Information Available Mental Status Description No Information Available Referrals Description No Information Available
--- OUTSIDE RECORDS SUMMARY | 2020-12-18 08:58 | CCD | Continuity of Care Document ---
Author Author Elisa STODDARD MD Organization Unknown Address [address] [address] Phone [phone] Care Team Providers Care Aircraft Steel Fabricator Name Role Phone Marva Lynn P.A.-C. AUTM [...] lb BMI (Body Mass Index) 31.5 kg/m2 [place] Body Weight 140 lb Weight 94.122 kg BSA (Body Surface Area) 2.08 m2 09/13/2020 10:02am BP Systolic 114 mmHg BP Diastolic 58 mmHg Height 68 inches 5'8" Weight 209.25 lb BMI (Body Mass Index) 31.8 kg/m2 [place] Body Weight 140 lb Weight 94.916 kg BSA (Body Surface Area) 2.08 m2 Results Test Acquired Date Facility Test Result H/L Range Note Laboratory test finding 11/06/2020 [facility] [address] [place], [place] [id number] [phone] Pathology Request For Service (SEE NOTE) 1 Laboratory test finding 08/30/2020 [facility] [address] [place] [address] [phone] Pathology Request For Service (SEE NOTE) 2 [...] wall is maximally 0.8 cm in thickness. Fryline Attendant in one. -SH 11/06/2020 - 1330 Signed [...] 1233 Procedures Date Code Description Status 11/06/2020 38999 Laparoscopy,Surgical;Cholecystec tressa Completed 10/03/2020 26257 Office/Outpatient Established Mo d MDM 30-39 Min Completed 09/13/2020 24040 Office/Outpatient Established Mo d MDM 30-39 Min Completed 08/30/2020 35343 Colonoscopy Flexible Proximal To Splenic Flexure Diagnostic W/Or Completed 08/30/2020 68816 Endoscopy Upper GI Biopsy Comple zac 07/04/2020 13849 Office/Outpatient New Moderate M DM 45-59 Minutes Completed Medical Devices Description No Information Available Encounters Type Date Location Provider Dx Diagnosis Office Visit 10/03/2020 8:45a [facility] Elias matta JR, MD K80.20 Calculus of gallbladder w/o cholecystiti s w/o obstruction Office Visit 09/13/2020 10:00a [facility] SOHAIL Roche R10.10 Upper abdominal pain, unspecified K21.9 Gastro-esophageal reflux dis ease without esophagitis K59.00 Constipation, unspecified Office Visit 07/04/2020 9:15a [facility] SOHAIL Rohce K21.9 Gastro-esophageal reflux disease without esophagitis R10.10 [...] 11/20/2020 1:00 pm - SOHAIL Thor[facility] at [facility] 10/03/2020 - Elias Stoddard JR, MD* K80.20 [...] Date Preet Mancini M.D. GERD Scheduled 05/25/2020 [facility] [address] [place] [address] [phone]
--- OUTSIDE RECORDS SUMMARY | 2020-12-18 08:58 | CCD | Continuity of Care Document ---
Author Author Elisa STODDARD MD Organization Unknown Address [address] [address] Phone [phone] Care Team Providers Care Arrt Technologist Name Role Phone Marva Lynn P.A.-C. AUTM [...] lb BMI (Body Mass Index) 31.5 kg/m2 [place] Body Weight 140 lb Weight 94.122 kg BSA (Body Surface Area) 2.08 m2 09/13/2020 10:02am BP Systolic 114 mmHg BP Diastolic 58 mmHg Height 68 inches 5'8" Weight 209.25 lb BMI (Body Mass Index) 31.8 kg/m2 [place] Body Weight 140 lb Weight 94.916 kg BSA (Body Surface Area) 2.08 m2 Results Test Acquired Date Facility Test Result H/L Range Note Laboratory test finding 08/30/2020 [facility] Main Lab [address] [place] [address] [phone] Pathology Request For Service (SEE NOTE) 1 [...] 1233 Procedures Date Code Description Status 10/03/2020 99227 Office/Outpatient Established Mo d MDM 30-39 Min Completed 09/13/2020 26170 Office/Outpatient Established Mo d MDM 30-39 Min Completed 08/30/2020 27261 Colonoscopy Flexible Proximal To Splenic Flexure Diagnostic W/Or Completed 08/30/2020 48463 Endoscopy Upper GI Biopsy Comple zac 07/04/2020 38231 Office/Outpatient New Moderate M DM 45-59 Minutes Completed Medical Devices Description No Information Available Encounters Type Date Location Provider Dx Diagnosis Office Visit 10/03/2020 8:45a [facility] Elias matta JR, MD K80.20 Calculus of gallbladder w/o cholecystiti s w/o obstruction Office Visit 09/13/2020 10:00a [facility] SOHAIL Roche R10.10 Upper abdominal pain, unspecified K21.9 Gastro-esophageal reflux dis ease without esophagitis K59.00 Constipation, unspecified Office Visit 07/04/2020 9:15a [facility] SOHAIL Roche K21.9 Gastro-esophageal reflux [...] 11/20/2020 1:00 pm - SOHAIL Thorpe at [facility] * 11/06/2020 9:15 am - Elias Stoddard JR, MD at [facility] 10/03/2020 - Elias Stoddard JR, MD* [...] Date Preet Mancini M.D. GERD Scheduled 05/25/2020 [facility] [address] [place] [address] [phone]
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
--- OUTSIDE RECORDS SUMMARY | 2020-12-18 08:58 | CCD | Continuity of Care Document ---
Author Author Daisy SNYDER [facility] Organization Unknown Address [address] [place] [address] Phone [phone] Care Team Providers Care Business Support Liaison Name Role Phone Nancy Amato AUTM [phone] Problems Description No Information Available Social History [...] Available Procedures Date Code Description Status 10/29/2020 87643 Manual Therapy Each 15 Minutes C ompleted 10/29/2020 47871 Therapeutic Procedure, Each 15 M inutes Completed 10/29/2020 51161 Hot Or Cold Packs Completed 10/25/2020 11263 Manual Therapy Each 15 Minutes C ompleted 10/25/2020 99787 Therapeutic Procedure, Each 15 M inutes Completed 10/25/2020 52102 Hot Or Cold Packs Completed 10/23/2020 94435 Manual Therapy Each 15 Minutes C ompleted 10/23/2020 68617 Therapeutic Procedure, Each 15 M inutes Completed 10/15/2020 12585 Physical Therapy Eval - Low Comp lexity Completed 10/03/2020 04369 Office/Outpatient New Moderate M DM 45-59 Minutes Completed Medical Devices Description No Information Available Encounters Type Date Location Provider Dx Diagnosis Office Visit 10/03/2020 11:30a [place] Jama Camargo MD M54.2 Cervicalgia M54.5 Low back pain M47.892 Other spondylosis, cervical region M51.36 Other intervertebral disc de generation, lumbar region Assessments Date Code Description Provider 10/29/2020 M54.2 Cervicalgia Danamarie Ortola no, EGG CRATER 10/29/2020 M54.5 Low back pain Danamarie Ortola no, EGG CRATER 10/25/2020 M54.2 Cervicalgia Danamarie Ortola no, EGG CRATER 10/25/2020 M54.5 Low back pain Danamarie Ortola no, EGG CRATER 10/23/2020 M54.2 Cervicalgia Danamarie Ortola no, EGG CRATER 10/23/2020 M54.5 Low back pain Danamarie Ortola no, EGG CRATER 10/15/2020 M54.2 Cervicalgia Tra Andrea P .T. 10/15/2020 M54.5 Low back pain Tra Andrea P .T. 10/03/2020 M54.2 Cervicalgia Jama Camargo MD 10/03/2020 M54.5 Low back pain Jama Camargo MD 10/03/2020 M47.892 Other spondylosis, cervical christi on Jama Camargo MD 10/03/2020 M51.36 Other intervertebral disc degene ration, lumbar region Jama Camargo MD Plan of Treatment No Information Available Functional Status Description No Information Available Mental Status Description No Information Available Referrals Refer to Dr Reason for Referral Status Appt Date Jama Camargo MD PT - 10 VISITS OK'D FOR CS/L S FROM 10/17-01/15/21, AUTH# [id number], RES# [id number] Created [address] [place] [address], [address] [address] [phone] Jama Camargo MD Physical Therapy spine patie nt is allowed eval then need auth to PT dept, patient is going to [facility], passed to PT dept sw. Created [address] [place] [address], [address] [address] [phone]
--- OUTSIDE RECORDS SUMMARY | 2020-12-18 08:58 | CCD | Continuity of Care Document ---
Author Author Daisy SNYDER [facility] Organization Unknown Address [address] [place] [address] Phone [phone] Care Team Providers Care Sports Recruiter Name Role Phone Nancy Amato AUTM [phone] Problems Description No Information Available Social History [...] Available Procedures Date Code Description Status 11/01/2020 86629 Manual Therapy Each 15 Minutes C ompleted 11/01/2020 70449 Therapeutic Procedure, Each 15 M inutes Completed 10/29/2020 22822 Manual Therapy Each 15 Minutes C ompleted 10/29/2020 26153 Therapeutic Procedure, Each 15 M inutes Completed 10/29/2020 27122 Hot Or Cold Packs Completed 10/25/2020 95010 Manual Therapy Each 15 Minutes C ompleted 10/25/2020 08431 Therapeutic Procedure, Each 15 M inutes Completed 10/25/2020 77178 Hot Or Cold Packs Completed 10/23/2020 21053 Manual Therapy Each 15 Minutes C ompleted 10/23/2020 03725 Therapeutic Procedure, Each 15 M inutes Completed 10/15/2020 84471 Physical Therapy Eval - Low Comp lexity Completed 10/03/2020 19448 Office/Outpatient New Moderate M DM 45-59 Minutes Completed Medical Devices Description No Information Available Encounters Type Date Location Provider Dx Diagnosis Office Visit 10/03/2020 11:30a [place] Jama Camargo MD M54.2 Cervicalgia M54.5 Low back pain M47.892 Other spondylosis, cervical region M51.36 Other intervertebral disc de generation, lumbar region Assessments Date Code Description Provider 11/01/2020 M54.2 Cervicalgia Danamarie Ortola no, DISH NETWORK INSTALLER 11/01/2020 M54.5 Low back pain Danamarie Ortola no, DISH NETWORK INSTALLER 10/29/2020 M54.2 Cervicalgia Danamarie Ortola no, DISH NETWORK INSTALLER 10/29/2020 M54.5 Low back pain Danamarie Ortola no, DISH NETWORK INSTALLER 10/25/2020 M54.2 Cervicalgia Danamarie Ortola no, DISH NETWORK INSTALLER 10/25/2020 M54.5 Low back pain Danamarie Ortola no, DISH NETWORK INSTALLER 10/23/2020 M54.2 Cervicalgia Danamarie Ortola no, DISH NETWORK INSTALLER 10/23/2020 M54.5 Low back pain Danamarie Ortola no, DISH NETWORK INSTALLER 10/15/2020 M54.2 Cervicalgia Tra Andrea P .T. [...] OK'D FOR CS/L S FROM 10/17-01/15/21, AUTH# [id number], RES# [id number] Created [facility], [address] [place] [address] [phone] Jama Camargo MD Physical Therapy spine patie nt is allowed eval then need auth to PT dept, patient is going [place] [facility], passed to PT dept sw. Created [address] [facility], [address] [place] [address] [phone]
--- OUTSIDE RECORDS SUMMARY | 2020-12-18 08:58 | CCD | Continuity of Care Document ---
Author Author Daisy SNYDER [facility] Organization Unknown Address [address] [place] [address] Phone [phone] Care Team Providers Care Director Surface Transportation Name Role Phone Nancy Amato AUTM [phone] Problems Description No Information Available Social History [...] Available Procedures Date Code Description Status 11/01/2020 66206 Manual Therapy Each 15 Minutes C ompleted 11/01/2020 08502 Therapeutic Procedure, Each 15 M inutes Completed 10/29/2020 96806 Manual Therapy Each 15 Minutes C ompleted 10/29/2020 51833 Therapeutic Procedure, Each 15 M inutes Completed 10/29/2020 55935 Hot Or Cold Packs Completed 10/25/2020 74315 Manual Therapy Each 15 Minutes C ompleted 10/25/2020 63809 Therapeutic Procedure, Each 15 M inutes Completed 10/25/2020 50221 Hot Or Cold Packs Completed 10/23/2020 40755 Manual Therapy Each 15 Minutes C ompleted 10/23/2020 35632 Therapeutic Procedure, Each 15 M inutes Completed 10/15/2020 58564 Physical Therapy Eval - Low Comp lexity Completed 10/03/2020 34865 Office/Outpatient New Moderate M DM 45-59 Minutes Completed Medical Devices Description No Information Available Encounters Type Date Location Provider Dx Diagnosis Office Visit 10/03/2020 11:30a [place] Jama Camargo MD M54.2 Cervicalgia M54.5 Low back pain M47.892 Other spondylosis, cervical region M51.36 Other intervertebral disc de generation, lumbar region Assessments Date Code Description Provider 11/01/2020 M54.2 Cervicalgia Danamarie Ortola no, UPSTREAM BIOMANUFACTURING TECHNICIAN 11/01/2020 M54.5 Low back pain Danamarie Ortola no, UPSTREAM BIOMANUFACTURING TECHNICIAN 10/29/2020 M54.2 Cervicalgia Danamarie Ortola no, UPSTREAM BIOMANUFACTURING TECHNICIAN 10/29/2020 M54.5 Low back pain Danamarie Ortola no, UPSTREAM BIOMANUFACTURING TECHNICIAN 10/25/2020 M54.2 Cervicalgia Danamarie Ortola no, UPSTREAM BIOMANUFACTURING TECHNICIAN 10/25/2020 M54.5 Low back pain Danamarie Ortola no, UPSTREAM BIOMANUFACTURING TECHNICIAN 10/23/2020 M54.2 Cervicalgia Danamarie Ortola no, UPSTREAM BIOMANUFACTURING TECHNICIAN 10/23/2020 M54.5 Low back pain Danamarie Ortola no, UPSTREAM BIOMANUFACTURING TECHNICIAN 10/15/2020 M54.2 Cervicalgia Tra Andrea P [...] OK'D FOR CS/L S FROM 10/17-01/15/21, AUTH# [id number], RES# [id number] Created [facility], [address] [place] [address] [phone] Jama Camargo MD Physical Therapy spine patie nt is allowed eval then need auth to PT dept, patient is going to [facility], passed to PT dept sw. Created [address] [facility], [address] [place] [address] [phone]
--- OUTSIDE RECORDS SUMMARY | 2020-12-18 08:58 | CCD | Continuity of Care Document ---
Author Author Daisy SNYDER [facility] Organization Unknown Address [address] [place] [address] Phone [phone] Care Team Providers Care Help Desk Rep Name Role Phone Nancy Amato AUTM [phone] Problems Description No Information Available Social History [...] Information Available Procedures Date Code Description Status 10/15/2020 28477 Physical Therapy Eval - Low Comp lexity Completed 10/03/2020 68599 Office/Outpatient New Moderate M DM 45-59 Minutes Completed Medical Devices Description No Information Available Encounters Type Date Location Provider Dx Diagnosis Office Visit 10/03/2020 11:30a [place] Jama Camargo MD M54.2 Cervicalgia M54.5 Low back pain M47.892 Other spondylosis, cervical region M51.36 Other intervertebral disc de generation, lumbar region Assessments Date Code Description Provider 10/15/2020 M54.2 Cervicalgia Tra Andrea P .T. 10/15/2020 M54.5 Low back pain Tra Andrea P .T. 10/03/2020 M54.2 Cervicalgia Jama Camargo MD 10/03/2020 M54.5 Low back pain Jama Camargo MD 10/03/2020 M47.892 Other spondylosis, cervical christi on Jama Camargo MD 10/03/2020 M51.36 Other intervertebral disc degene ration, lumbar region Jama Camargo MD Plan of Treatment Future Appointment(s):* 11/01/2020 8:00 am - Ирина [place], [place] at Physical Therapy * 10/29/2020 8:00 am - Tra Andrea P.T. at Physical Therapy * 10/25/2020 8:00 am - Ирина Snyder PTA at Physical Therapy Functional Status Description No Information Available Mental Status Description No Information Available Referrals Refer to Dr Reason for Referral Status Appt Date Jama Camargo MD PT - 10 VISITS OK'D FOR CS/L S FROM 10/17-01/15/21, AUTH# [id number], RES# [id number].SS Created [address] [place] [address], [address] [address] [phone] Jama Camargo MD Physical Therapy spine patie nt is allowed eval then need auth to PT dept, patient is going to [facility], passed to PT dept sw. Created [address] [place] [address], [address] [address] [phone]
--- OUTSIDE RECORDS SUMMARY | 2020-12-18 08:58 | CCD | Continuity of Care Document ---
Author Author Elisa STODDARD MD Organization Unknown Address [address] [address] Phone [phone] Care Team Providers Care Senior Payroll Manager Name Role Phone Marva Lynn P.A.-C. AUTM [...] lb BMI (Body Mass Index) 31.5 kg/m2 [place] Body Weight 140 lb Weight 94.122 kg BSA (Body Surface Area) 2.08 m2 09/13/2020 10:02am BP Systolic 114 mmHg BP Diastolic 58 mmHg Height 68 inches 5'8" Weight 209.25 lb BMI (Body Mass Index) 31.8 kg/m2 [place] Body Weight 140 lb Weight 94.916 kg BSA (Body Surface Area) 2.08 m2 Results Test Acquired Date Facility Test Result H/L Range Note Laboratory test finding 08/30/2020 [facility] [address] [place] [address] [phone] Pathology Request For Service (SEE NOTE) 1 [...] 1233 Procedures Date Code Description Status 09/13/2020 81096 Office/Outpatient Established Mo d MDM 30-39 Min Completed 08/30/2020 24433 Colonoscopy Flexible Proximal To Splenic Flexure Diagnostic W/Or Completed 08/30/2020 66918 Endoscopy Upper GI Biopsy Comple zac 07/04/2020 45855 Office/Outpatient New Moderate M DM 45-59 Minutes Completed Medical Devices Description No Information Available Encounters Type Date Location Provider Dx Diagnosis Office Visit 09/13/2020 10:00a [facility] R10.10 Upper abdominal pain, unspecified K21.9 Gastro-esophageal reflux dis ease without esophagitis K59.00 Constipation, unspecified Office Visit 07/04/2020 9:15a [facility] K21.9 Gastro-esophageal [...] Date Preet Mancini M.D. GERD Scheduled 05/25/2020 [facility] [address] [place] [address] [phone]
--- OUTSIDE RECORDS SUMMARY | 2020-12-18 08:58 | CCD | Continuity of Care Document ---
Author Author Daisy ANDREA P.T. Organization Unknown Address [address] [place] [address] Phone [phone] Care Team Providers Care Mutual Fund Sales Agent Name Role Phone Nancy Amato AUTM [phone] Problems Description No Information Available Social History [...] Available Procedures Date Code Description Status 11/01/2020 24790 Manual Therapy Each 15 Minutes C ompleted 11/01/2020 85943 Therapeutic Procedure, Each 15 M inutes Completed 10/29/2020 70727 Manual Therapy Each 15 Minutes C ompleted 10/29/2020 70118 Therapeutic Procedure, Each 15 M inutes Completed 10/29/2020 30836 Hot Or Cold Packs Completed 10/25/2020 44625 Manual Therapy Each 15 Minutes C ompleted 10/25/2020 62527 Therapeutic Procedure, Each 15 M inutes Completed 10/25/2020 90944 Hot Or Cold Packs Completed 10/23/2020 46769 Manual Therapy Each 15 Minutes C ompleted 10/23/2020 29299 Therapeutic Procedure, Each 15 M inutes Completed 10/15/2020 82327 Physical Therapy Eval - Low Comp lexity Completed 10/03/2020 47232 Office/Outpatient New Moderate M DM 45-59 Minutes Completed Medical Devices Description No Information Available Encounters Type Date Location Provider Dx Diagnosis Office Visit 10/03/2020 11:30a [place] Jama Camargo MD M54.2 Cervicalgia M54.5 Low back pain M47.892 Other spondylosis, cervical region M51.36 Other intervertebral disc de generation, lumbar region Assessments Date Code Description Provider 11/01/2020 M54.2 Cervicalgia Danamarie Ortola no, BI REPORT DEVELOPER 11/01/2020 M54.5 Low back pain Danamarie Ortola no, BI REPORT DEVELOPER 10/29/2020 M54.2 Cervicalgia Danamarie Ortola no, BI REPORT DEVELOPER 10/29/2020 M54.5 Low back pain Danamarie Ortola no, BI REPORT DEVELOPER 10/25/2020 M54.2 Cervicalgia Danamarie Ortola no, BI REPORT DEVELOPER 10/25/2020 M54.5 Low back pain Danamarie Ortola no, BI REPORT DEVELOPER 10/23/2020 M54.2 Cervicalgia Danamarie Ortola no, BI REPORT DEVELOPER 10/23/2020 M54.5 Low back pain Danamarie Ortola no, BI REPORT DEVELOPER 10/15/2020 M54.2 Cervicalgia Tra Andrea P .T. [...] OK'D FOR CS/L S FROM 10/17-01/15/21, AUTH# [id number], RES# [id number] Created [facility], [address] [place] [address] [phone] Jama Camargo MD Physical Therapy spine patie nt is allowed eval then need auth to PT dept, patient is going to [facility], passed to PT dept sw. Created [address] [facility], [address] [place] [address] [phone]
--- OUTSIDE RECORDS SUMMARY | 2020-12-18 08:58 | CCD | Continuity of Care Document ---
Author Author Elisa BEST P.T. Organization Unknown Address [address] [place] [address] Phone [phone] Care Team Providers Care Carpentry Supervisor Name Role Phone Lm Nancy Misty SAUCEDA AUTM [phone] Problems Description No Information Available Social History [...] Information Available Procedures Date Code Description Status 10/03/2020 26146 Consultation Outpatient Level 4 Completed Medical Devices Description No Information Available Encounters Type Date Location Provider Dx Diagnosis Office Visit 10/03/2020 11:30a [place] Jama Camargo MD M54.2 Cervicalgia M54.5 Low back pain M47.892 Other spondylosis, cervical region M51.36 Other intervertebral disc de generation, lumbar region Assessments Date Code Description Provider 10/03/2020 M54.2 Cervicalgia Jama Camargo MD 10/03/2020 M54.5 Low back pain Jama Camargo MD 10/03/2020 M47.892 Other spondylosis, cervical christi on Jama Camargo MD 10/03/2020 M51.36 Other intervertebral disc degene ration, lumbar region Jama Camargo MD Plan of Treatment No Information Available Functional Status Description No Information Available Mental Status Description No Information Available Referrals Refer to Reason for Referral Status Appt Date Jama Camargo MD Physical Therapy spine patie nt is allowed eval then need auth to PT dept, patient is going to [facility], passed to PT dept sw. Created [facility], [address] [place] [address] [phone]
--- OUTSIDE RECORDS SUMMARY | 2020-12-18 08:58 | CCD | Continuity of Care Document ---
Author Author Daisy [facility] Organization Unknown Address [address] [place] [address] Phone [phone] Care Team Providers Care Nail Making Machine Tender Name Role Phone Nancy Amato AUTM [phone] Problems Description No Information Available Social History [...] Available Procedures Date Code Description Status 11/01/2020 02209 Manual Therapy Each 15 Minutes C ompleted 11/01/2020 16321 Therapeutic Procedure, Each 15 M inutes Completed 10/29/2020 54726 Manual Therapy Each 15 Minutes C ompleted 10/29/2020 29443 Therapeutic Procedure, Each 15 M inutes Completed 10/29/2020 45135 Hot Or Cold Packs Completed 10/25/2020 14325 Manual Therapy Each 15 Minutes C ompleted 10/25/2020 64703 Therapeutic Procedure, Each 15 M inutes Completed 10/25/2020 56803 Hot Or Cold Packs Completed 10/23/2020 68754 Manual Therapy Each 15 Minutes C ompleted 10/23/2020 23131 Therapeutic Procedure, Each 15 M inutes Completed 10/15/2020 37041 Physical Therapy Eval - Low Comp lexity Completed 10/03/2020 98552 Office/Outpatient New Moderate M DM 45-59 Minutes Completed Medical Devices Description No Information Available Encounters Type Date Location Provider Dx Diagnosis Office Visit 10/03/2020 11:30a [place] Jama Camargo MD M54.2 Cervicalgia M54.5 Low back pain M47.892 Other spondylosis, cervical region M51.36 Other intervertebral disc de generation, lumbar region Assessments Date Code Description Provider 11/01/2020 M54.2 Cervicalgia Danamarie Ortola no, INDUSTRIAL RELATIONS DIRECTOR 11/01/2020 M54.5 Low back pain Danamarie Ortola no, INDUSTRIAL RELATIONS DIRECTOR 10/29/2020 M54.2 Cervicalgia Danamarie Ortola no, INDUSTRIAL RELATIONS DIRECTOR 10/29/2020 M54.5 Low back pain Danamarie Ortola no, INDUSTRIAL RELATIONS DIRECTOR 10/25/2020 M54.2 Cervicalgia Danamarie Ortola no, INDUSTRIAL RELATIONS DIRECTOR 10/25/2020 M54.5 Low back pain Danamarie Ortola no, INDUSTRIAL RELATIONS DIRECTOR 10/23/2020 M54.2 Cervicalgia Danamarie Ortola no, INDUSTRIAL RELATIONS DIRECTOR 10/23/2020 M54.5 Low back pain Danamarie Ortola no, INDUSTRIAL RELATIONS DIRECTOR 10/15/2020 M54.2 Cervicalgia Tra Andrea P .T. [...] OK'D FOR CS/L S FROM 10/17-01/15/21, AUTH# [id number], RES# [id number] Created [facility], [address] [place] [address] [phone] Jama Camargo MD Physical Therapy spine patie nt is allowed eval then need auth to PT dept, patient is going to [facility], passed to PT dept sw. Created [address] [facility], [address] [place] [address] [phone]
--- OUTSIDE RECORDS SUMMARY | 2020-12-18 08:58 | CCD | Continuity of Care Document ---
Author Author Elisa ROSS MD Organization Unknown Address [address] [place] [address] Phone [phone] Care Team Providers Care Warp Dresser Name Role Phone AmatoNancy AUTM [phone] Problems Description No Information Available Social History [...] Available Procedures Date Code Description Status 10/15/2020 56302 Physical Therapy Eval - Low Comp lexity Completed 10/03/2020 46597 Office/Outpatient New Moderate M DM 45-59 Minutes Completed Medical Devices Description No Information Available Encounters Type Date Location Provider Dx Diagnosis Office Visit 10/03/2020 11:30a [place] Jama Ross MD M54.2 Cervicalgia M54.5 Low back pain M47.892 Other spondylosis, cervical region M51.36 Other intervertebral disc de generation, lumbar region Assessments Date Code Description Provider 10/15/2020 M54.2 Cervicalgia Tra Andrea P .T. 10/15/2020 M54.5 Low back pain Tra Andrea P .T. 10/03/2020 M54.2 Cervicalgia Jama Ross MD 10/03/2020 M54.5 Low back pain Jama Ross MD 10/03/2020 M47.892 Other spondylosis, cervical christi on Jama Ross MD 10/03/2020 M51.36 Other intervertebral disc degene ration, lumbar region Jama Ross MD Plan of Treatment No Information Available Functional Status Description No Information Available Mental Status Description No Information Available Referrals Refer to Reason for Referral Status Appt Date Jama Ross MD Physical Therapy spine patie nt is allowed eval then need auth to PT dept, patient is going to [facility] [place], passed to PT dept . Created [address] [place] [address], [address] [place] [address] [phone]
--- OUTSIDE RECORDS SUMMARY | 2020-12-18 08:58 | CCD | Continuity of Care Document ---
Author Author Daisy SN[facility] Organization Unknown Address [address] [place] [address] Phone [phone] Care Team Providers Care Gag Writer Name Role Phone Nancy Amato AUTM [phone] Problems Description No Information Available Social History [...] Available Procedures Date Code Description Status 11/01/2020 01103 Manual Therapy Each 15 Minutes C ompleted 11/01/2020 33970 Therapeutic Procedure, Each 15 M inutes Completed 10/29/2020 46568 Manual Therapy Each 15 Minutes C ompleted 10/29/2020 79920 Therapeutic Procedure, Each 15 M inutes Completed 10/29/2020 66748 Hot Or Cold Packs Completed 10/25/2020 34640 Manual Therapy Each 15 Minutes C ompleted 10/25/2020 50711 Therapeutic Procedure, Each 15 M inutes Completed 10/25/2020 45344 Hot Or Cold Packs Completed 10/23/2020 16287 Manual Therapy Each 15 Minutes C ompleted 10/23/2020 14377 Therapeutic Procedure, Each 15 M inutes Completed 10/15/2020 20322 Physical Therapy Eval - Low Comp lexity Completed 10/03/2020 77159 Office/Outpatient New Moderate M DM 45-59 Minutes Completed Medical Devices Description No Information Available Encounters Type Date Location Provider Dx Diagnosis Office Visit 10/03/2020 11:30a [place] Jama Camargo MD M54.2 Cervicalgia M54.5 Low back pain M47.892 Other spondylosis, cervical region M51.36 Other intervertebral disc de generation, lumbar region Assessments Date Code Description Provider 11/01/2020 M54.2 Cervicalgia Danamarie Ortola no, WAFER FABRICATION TECHNICIAN 11/01/2020 M54.5 Low back pain Danamarie Ortola no, WAFER FABRICATION TECHNICIAN 10/29/2020 M54.2 Cervicalgia Danamarie Ortola no, WAFER FABRICATION TECHNICIAN 10/29/2020 M54.5 Low back pain Danamarie Ortola no, WAFER FABRICATION TECHNICIAN 10/25/2020 M54.2 Cervicalgia Danamarie Ortola no, WAFER FABRICATION TECHNICIAN 10/25/2020 M54.5 Low back pain Danamarie Ortola no, WAFER FABRICATION TECHNICIAN 10/23/2020 M54.2 Cervicalgia Danamarie Ortola no, WAFER FABRICATION TECHNICIAN 10/23/2020 M54.5 Low back pain Danamarie Ortola no, WAFER FABRICATION TECHNICIAN 10/15/2020 M54.2 Cervicalgia Tra Andrea P [...] OK'D FOR CS/L S FROM 10/17-01/15/21, AUTH# [id number], RES# [id number] Created [facility], [address] [place] [address] [phone] Jama Camargo MD Physical Therapy spine patie nt is allowed eval then need auth to PT dept, [place] [facility] [place] PT dept sw. Created [address] [facility], [address] [place] [address] [phone]
--- OUTSIDE RECORDS SUMMARY | 2020-12-18 09:00 | CCD ---
Author Author [facility] Organization [facility] Address Unknown Phone Unavailable Care Team Providers Care Cab Station Attendant Name Role Phone Camargo, Jama Unavailable Unavailable Camargo, Jama Unavailable Unavailable Camargo, Jama Unavailable Unavailable Camargo, Jama Unavailable Unavailable Camargo, Jama Unavailable Unavailable Camargo, Jama Unavailable Unavailable Camargo, Jama Unavailable Unavailable Camargo, Jama Unavailable Unavailable Camargo, Jama Unavailable Unavailable Camargo, Jama Unavailable Unavailable Camargo, Jama Unavailable Unavailable Camargo, Jama Unavailable Unavailable Camargo, Jama Unavailable Unavailable Camargo, Jama Unavailable Unavailable Camargo, Jama Unavailable Unavailable Camargo, Jama Unavailable Unavailable Camargo, Jama Unavailable Unavailable Camargo, Jama Unavailable Unavailable Camargo, Jama Unavailable Unavailable Camargo, Jama Unavailable Unavailable Camargo, Jama Unavailable Unavailable Camargo, Jama Unavailable Unavailable Camargo, Jama Unavailable Unavailable Camargo, Jama Unavailable Unavailable Camargo, Jama Unavailable Unavailable Camargo, Jama Unavailable Unavailable Camargo, Jama Unavailable Unavailable Camargo, Jama Unavailable Unavailable Camargo, Jama Unavailable Unavailable Camargo, Jama Unavailable Unavailable Camargo, Jama Unavailable Unavailable Camargo, Jama Unavailable Unavailable Camargo, Jama Unavailable Unavailable Camargo, Jama Unavailable Unavailable Camargo, Jama Unavailable Unavailable Camargo, Jama Unavailable Unavailable Camargo, Jama Unavailable Unavailable Camargo, Jama Unavailable Unavailable Camargo, Jama Unavailable Unavailable Camrago, Jama Unavailable Unavailable Camargo, Jama Unavailable Unavailable Camargo, Jama Unavailable Unavailable Camargo, Jama Unavailable Unavailable Camargo, Jama Unavailable Unavailable Camargo, Jama Unavailable Unavailable Oriana Pierre Unavailable [phone] Sindy Cast Unavailable Unavailable Serene, Aidee Unavailable Unavailable Serene, Aidee Unavailable Unavailable Serene, Aidee Unavailable Unavailable Serene, Aidee Unavailable Unavailable Serene, Aidee Unavailable Unavailable Serene, Aidee Unavailable Unavailable Serene, Aidee Unavailable Unavailable Serene, Aidee Unavailable Unavailable Serene, Aidee Unavailable Unavailable Serene, Aidee Unavailable Unavailable Serene, Aidee Unavailable Unavailable Serene, Aidee Unavailable Unavailable Serene, Aidee Unavailable Unavailable Serene, Aidee Unavailable Unavailable Serene, Aidee Unavailable Unavailable Serene, Aidee Unavailable Unavailable Serene, Aidee Unavailable Unavailable Serene, Aidee Unavailable Unavailable Serene, Aidee Unavailable Unavailable Serene, Aidee Unavailable Unavailable Serene, Aidee Unavailable Unavailable Serene, Aidee Unavailable Unavailable Serene, Aidee Unavailable Unavailable RAMOS, G EDWARD RPA Unavailable Unavailable RAMOS, G EDWARD RPA Unavailable Unavailable RAMOS, G EDWARD RPA Unavailable Unavailable RAMOS, G EDWARD RPA Unavailable Unavailable RAMOS, G EDWARD RPA Unavailable Unavailable RAMOS, G EDWARD RPA Unavailable Unavailable RAMOS, G EDWARD RPA Unavailable Unavailable RAMOS, G EDWARD RPA Unavailable Unavailable RAMOS, G EDWARD RPA Unavailable Unavailable RAMOS, G EDWARD RPA Unavailable Unavailable RAMOS, G EDWARD RPA Unavailable Unavailable RAMOS, G EDWARD RPA Unavailable Unavailable RAMOS, G EDWARD RPA Unavailable Unavailable RAMOS, G EDWARD RPA Unavailable Unavailable RAMOS, G EDWARD RPA Unavailable Unavailable RAMOS, G EDWARD RPA Unavailable Unavailable RAMOS, G EDWARD RPA Unavailable Unavailable RAMOS, G EDWARD RPA Unavailable Unavailable RAMOS, G EDWARD RPA Unavailable Unavailable RAMOS, G EDWARD RPA Unavailable Unavailable RAMOS, G EDWARD RPA Unavailable Unavailable RAMOS, G EDWARD RPA Unavailable Unavailable RAMOS, G EDWARD RPA Unavailable Unavailable RAMOS, G EDWARD RPA Unavailable Unavailable RAMOS, G EDWARD RPA Unavailable Unavailable RAMOS, G EDWARD RPA Unavailable Unavailable RAMOS, G EDWARD RPA Unavailable Unavailable RAMOS, G EDWARD RPA Unavailable Unavailable RAMOS, G EDWARD RPA Unavailable Unavailable RAMOS, G EDWARD RPA Unavailable Unavailable RAMOS, G EDWARD RPA Unavailable Unavailable RAMOS, G EDWARD RPA Unavailable Unavailable RAMOS, G EDWARD RPA Unavailable Unavailable RAMOS, G EDWARD RPA Unavailable Unavailable RAMOS, G EDWARD RPA Unavailable Unavailable Amato, L Nancy RPA Unavailable Unavailable Amato, L Nancy RPA Unavailable Unavailable Amato, L Nancy RPA Unavailable Unavailable Amato, L Nancy RPA Unavailable Unavailable Amato, L Nancy RPA Unavailable Unavailable Amato, L Nancy RPA Unavailable Unavailable Amato, L Nancy RPA Unavailable Unavailable Amato, L Nancy RPA Unavailable Unavailable Amato, L Nancy RPA Unavailable Unavailable Amato, L Nancy RPA Unavailable Unavailable Amato, L Nancy RPA Unavailable Unavailable Amato, L Nancy RPA Unavailable Unavailable Amato, L Nancy RPA Unavailable Unavailable Amato, L Nancy RPA Unavailable Unavailable Amato, L Nancy RPA Unavailable Unavailable Amato, L Nancy RPA Unavailable Unavailable Amato, L Nancy RPA Unavailable Unavailable Amato, L Nancy RPA Unavailable Unavailable Amato, L Nancy RPA Unavailable Unavailable Amato, L Nancy RPA Unavailable Unavailable Amato, L Nancy RPA Unavailable Unavailable Amato, L Nancy RPA Unavailable Unavailable Amato, L Nancy RPA Unavailable Unavailable Amato, L Nancy RPA Unavailable Unavailable Amato, L Nancy RPA Unavailable Unavailable Amato, L Nancy RPA Unavailable Unavailable Amato, L Nancy RPA Unavailable Unavailable Amato, L Nancy RPA Unavailable Unavailable Amato, L Nancy RPA Unavailable Unavailable Amato, L Nancy RPA Unavailable Unavailable Amato, L Nancy RPA Unavailable Unavailable Amato, L Nancy RPA Unavailable Unavailable Maria De Jesus Stoddard JR, MD Unavailable Unavailable Maria De Jesus Stoddard JR, MD Unavailable Unavailable Maria De Jesus Stoddard JR, MD Unavailable Unavailable Maria De Jesus Stoddard JR, MD Unavailable Unavailable Maria De Jesus Stoddard JR, MD Unavailable Unavailable Maria De Jesus Stoddard JR, MD Unavailable Unavailable Maria De Jesus Stoddard JR, MD Unavailable Unavailable Maria De Jesus Stoddard JR, MD Unavailable Unavailable Maria De Jesus Stoddard JR, MD Unavailable Unavailable Maria De Jesus Stoddard JR, MD Unavailable Unavailable Maria De Jesus Stoddard JR, MD Unavailable Unavailable Maria De Jesus Stoddard JR, MD Unavailable Unavailable Maria De Jesus Stoddard JR, MD Unavailable Unavailable Maria De Jesus Stoddard JR, MD Unavailable Unavailable Maria De Jesus Stoddard JR, MD Unavailable Unavailable Maria De Jesus Stoddard JR, MD Unavailable Unavailable Maria De Jesus Stoddard JR, MD Unavailable Unavailable Maria De Jesus Stoddard JR, MD Unavailable Unavailable Maria De Jesus Stoddard JR, MD Unavailable Unavailable Maria De Jesus Stoddard JR, MD Unavailable Unavailable Maria De Jesus Stoddard JR, MD Unavailable Unavailable Maria De Jesus Stoddard JR, MD Unavailable Unavailable Maria De Jesus Stoddard JR, MD Unavailable Unavailable Maria De Jesus Stoddard JR, MD Unavailable Unavailable Maria De Jesus Stoddard JR, MD Unavailable Unavailable Maria De Jesus Stoddard JR, MD Unavailable Unavailable Maria De Jesus Stoddard JR, MD Unavailable Unavailable Maria De Jesus Stoddard JR, MD Unavailable Unavailable Maria De Jesus Stoddard JR, MD Unavailable Unavailable Maria De Jesus Stoddard JR, MD Unavailable Unavailable Maria De Jesus Stoddard JR, MD Unavailable Unavailable Maria De Jesus Stoddard JR, MD Unavailable Unavailable Maria De Jesus Stoddard JR, MD Unavailable Unavailable Maria De Jesus Stoddard JR, MD Unavailable Unavailable Maria De Jesus Stoddard JR, MD Unavailable Unavailable Maria De Jesus Stoddard JR, MD Unavailable Unavailable Maria De Jesus Stoddard JR, MD Unavailable Unavailable Maria De Jesus Stoddard JR, MD Unavailable Unavailable Maria De Jesus Stoddard JR, MD Unavailable Unavailable aMria De Jesus Stoddard JR, MD Unavailable Unavailable Maria De Jesus Stoddard JR, MD Unavailable Unavailable Maria De Jesus Stoddard JR, MD Unavailable Unavailable Maria De Jesus Stoddard JR, MD Unavailable Unavailable Maria De Jesus Stoddard JR, MD Unavailable Unavailable Maria De Jesus Stoddard JR, MD Unavailable Unavailable Maria De Jesus Stoddard JR, MD Unavailable Unavailable Maria De Jesus Stoddard JR, MD Unavailable Unavailable Maria De Jesus Stoddard JR, MD Unavailable Unavailable Maria De Jesus Stoddard JR, MD Unavailable Unavailable Maria De Jesus Stoddard JR, MD Unavailable Unavailable Maria De Jesus Stoddard JR, MD Unavailable Unavailable Maria De Jesus Stoddard JR, MD Unavailable Unavailable Maria De Jesus Stoddard JR, MD Unavailable Unavailable Maria De Jesus Stoddard JR, MD Unavailable Unavailable Scordo, M Marva PA Unavailable Unavailable Scordo, M Marva PA Unavailable Unavailable Scordo, M Marva PA Unavailable Unavailable Scordo, M Marva PA Unavailable Unavailable Scordo, M Marva PA Unavailable Unavailable Scordo, M Marva PA Unavailable Unavailable Scordo, M Marva PA Unavailable Unavailable Scordo, M Marva PA Unavailable Unavailable Scordo, M Marva PA Unavailable Unavailable Scordo, M Marva PA Unavailable Unavailable Scordo, M Marva PA Unavailable Unavailable Scordo, M Marva PA Unavailable Unavailable Scordo, M Mavra PA Unavailable Unavailable Scordo, M Marva PA Unavailable Unavailable Scordo, M Marva PA Unavailable Unavailable Scordo, M Marva PA Unavailable Unavailable Scordo, M Marva PA Unavailable Unavailable Scordo, M Marva PA Unavailable Unavailable Scordo, M Marva PA Unavailable Unavailable Scordo, M Marva PA Unavailable Unavailable Scordo, M Marva PA Unavailable Unavailable Scordo, M Marva PA Unavailable Unavailable Scordo, M Marva PA Unavailable Unavailable Scordo, M Marva PA Unavailable Unavailable Scordo, M Marva PA Unavailable Unavailable Scordo, M Marva PA Unavailable Unavailable Scordo, M Marva PA Unavailable Unavailable Scordo, M Marva PA Unavailable Unavailable Scordo, M Marva PA Unavailable Unavailable Scordo, M Marva PA Unavailable Unavailable Scordo, M Marva PA Unavailable Unavailable Scordo, M Marva PA Unavailable Unavailable Scordo, M Marva PA Unavailable Unavailable Scordo, M Marva PA Unavailable Unavailable Scordo, M Marva PA Unavailable Unavailable Scordo, M Marva PA Unavailable Unavailable Scordo, M Marva PA Unavailable Unavailable Scordo, M Marva PA Unavailable Unavailable Scordo, M Marva PA Unavailable Unavailable Scordo, M Marva PA Unavailable Unavailable Scordo, M Marva PA Unavailable Unavailable Scordo, M Marva PA Unavailable Unavailable Scordo, M Marva PA Unavailable Unavailable Scordo, M Marva PA Unavailable Unavailable Scordo, M Marva PA Unavailable Unavailable Scordo, M Marva PA Unavailable Unavailable Scordo, M Marva PA Unavailable Unavailable Re-disclosure Warning The records that you are about to access may contain information from federally-assisted alcohol or drug abuse programs. If such information is present, then the following federally mandated warning applies: This information has been disclosed to you from records protected by federal confidentiality rules (42 CFR part 2). The federal rules prohibit you from making any further disclosure of this information unless further disclosure is expressly permitted by the written consent of the person to whom it pertains or as otherwise permitted by 42 CFR part 2. A general authorization for the release of medical or other information is NOT sufficient for this purpose. The Federal rules restrict any use of the information to criminally investigate or prosecute any alcohol or drug abuse patient.The records that you are about to access may contain highly sensitive health information, the redisclosure of which is protected by Article 27-F of the [facility] Public Health law. If you continue you may have access to information: Regarding HIV / AIDS; Provided by facilities licensed or operated by the [facility] Office of Mental Health; or Provided by the [facility] Office for People With Developmental Disabilities. If such information is present, then the following [facility] mandated warning applies: This information has been disclosed to you from confidential records which are protected by state law. State law prohibits you from making any further disclosure of this information without the specific written consent of the person to whom it pertains, or as otherwise permitted by law. Any unauthorized further disclosure in violation of state law may result in a fine or snf sentence or both. A general authorization for the release of medical or other information is NOT sufficient authorization for further disc losure. Allergies and Adverse Reactions Type Description Substance Reaction Status Data Source(s ) Allergy to substance Allergy to substance Allergy to substance [place] ([facility]) Allergy to substance Allergy to substance Allergy to substance [place] ([facility]) Allergy to substance Allergy to substance Allergy to substance [place] ([facility]) Allergy to substance Allergy to substance Allergy to substance [place] ([facility]) Family History Family Member Name Family Member Gender Family Member Status Date o f Status Description Data Source(s) Unknown Male Encounters Encounter Providers Location Date Indications Data Source(s ) Oriana Pierre [facility] [address] [place] [address], Ph. Attender: Oriana Pierre [facility] Medical 12/14/2020 12:00:00 AM EDT [facility]) Marva Lynn PA-C: [address] [place] [address], Ph. Attender: Marva SAUCEDA [facility] Medical 11/29/2020 12:00:00 AM EDT [facility]) Marva Lynn PA-C: [address] [place] [address], Ph. Attender: Marva SAUCEDA [facility] Medical 11/29/2020 12:00:00 AM EDT [facility]) Sindy Cast MD: [address], [place] [address], Ph. Attender: Sindy Cast [facility] Medical 11/28/2020 12:00:00 AM EDT [facility] ([facility]) Sindy Cast MD: [address], [place] [address], Ph. Attender: Sindy Cast [facility] Medical 11/28/2020 12:00:00 AM EDT [facility] ([facility]) Sindy Cast MD: [address], [place] [address], Ph. Attender: Sindy Cast [facility] Medical 11/28/2020 12:00:00 AM EDT [facility] ([facility]) Oriana Pierre, [facility]: [address], [place] [address], Ph. Attender: Oriana Pierre [facility] Medical 11/22/2020 12:00:00 AM EDT [facility] ([facility]) Oriana Pierre, [facility]: [address], [place] [address], Ph. Attender: Oriana Pierre [facility] Medical 11/22/2020 12:00:00 AM EDT [facility] ([facility]) Oriana Pierre, [facility]: [address], [place] [address], Ph. Attender: Oriana Pierre [facility] Medical 11/22/2020 12:00:00 AM EDT [facility] ([facility]) Oriana Pierre, [facility]: [address], [place] [address], Ph. Attender: Oriana Pierre [facility] Medical 11/22/2020 12:00:00 AM EDT [facility] ([facility]) Office Visit Attender: Nancy Gutierrez/Miguel/Francesca lozano 11/20/2020 09:00:00 AM EDT [facility] ([facility]) Oriana Pierre, [facility]: [address] [place] [address], Ph. Attender: Oriana Pierre [facility] Medical 11/13/2020 12:00:00 AM EDT [place] ([facility]) [facility] [address], [place] [address], Ph. Attender: Oriana Pierre [facility] Medical 11/13/2020 12:00:00 AM EDT [facility] ([facility]) Oriana Pierre, [facility]: [address] [place] [address], Ph. Attender: Oriana Pierre [facility] Medical 11/13/2020 12:00:00 AM EDT [place] ([facility]) Oriana Pierre, [facility]: [address] [place] [address], Ph. Attender: Oriana Pierre [facility] Medical 11/13/2020 12:00:00 AM EDT [place] ([facility]) [facility]: [address] [place] [address], Ph. Attender: Oriana Pierre [facility] Medical 11/13/2020 12:00:00 AM EDT [place] ([facility]) Outpatient Attender: aJma [facility] 10/03/2020 11:30:0 0 AM EDT [place] ([facility]) Outpatient Attender: Elias Gutierrez/Miguel/Giuseppe/Rein dl 10/03/2020 08:45:00 AM EDT [place] ([facility], ) Marva Lynn PA-C: [address], [place] [address], Ph. Attender: Marva SAUCEDA [facility] Medical 09/26/2020 12:00:00 AM EDT [place] ([facility]) Marva Lynn PA-C: [address], [place] [address], Ph. Attender: Marva SAUCEDA [facility] Medical 09/26/2020 12:00:00 AM EDT [place] ([facility]) Marva Lynn PA-C: [address], [place] [address], Ph. Attender: Marva SAUCEDA [facility] Medical 09/26/2020 12:00:00 AM EDT [place] ([facility]) Marva Lynn PA-C: [address], [place] [address], Ph. Attender: Marva SAUCEDA [facility] Medical 09/26/2020 12:00:00 AM EDT [facility] ([facility]) Marva Lynn PA-C: [address], [place] [address], Ph. Attender: aMrva [facility] Medical 09/26/2020 12:00:00 AM EDT [facility] ([facility]) Marva Lynn PA-C: [address], [place] [address], Ph. Att[facility]: Mar[facility] 09/26/2020 12:00:00 AM EDT [place] ([facility]) Outpatient Attender: Nancy Gutierrez/Miguel/Giuseppe/Mey lozano 09/13/2020 10:00:00 AM EDT [facility] ([facility] ) Oriana Pierre, [facility]: [address] [place] [address], Ph. Attender: Oriana Pierre [facility] Medical 08/20/2020 12:00:00 AM EDT [place] ([facility]) Oriana Pierre [facility]: [address], [place] [address], Ph. Attender: Oriana Pierre [facility] Medical 08/20/2020 12:00:00 AM EDT [place] ([facility]) Oriana Pierre, [facility]: [address], [place] [address], Ph. Attender: Oriana Pierre [facility] Medical 08/20/2020 12:00:00 AM EDT [place] ([facility]) Oriana Pierre, [employer]: [address] [place] [address], Ph. Attender: Oriana Pierre [facility] Medical 08/20/2020 12:00:00 AM EDT [place] ([facility]) Oriana Pierre, [facility]: [address], [place] [address], Ph. Attender: Oriana Pierre [facility] Medical 08/20/2020 12:00:00 AM EDT [place] ([facility]) Oriana Pierre [facility]: [address], [place] [address], Ph. Attender: Oriana Pierre [facility] Medical 08/20/2020 12:00:00 AM EDT [facility] ([facility]) Oriana Gabby, [facility]: [address], [place] [address], Ph. Attender: Oriana Nicholsonisabell [facility] Medical 08/20/2020 12:00:00 AM EDT [facility] ([facility]) Outpatient Attender: MADISON RAMOS [facility] 08/06 08:30:32 AM EDT - 08/06/2020 09:28:15 AM EDT [facility] ([facility] ) Marva Lynn PA-C: [address], [place] [address], Ph. Attender: Marva SAUCEDA [facility] Medical 08/03/2020 12:00:00 AM EDT [place] ([facility]) Marva Lynn PA-C: [address], [place] [address], Ph. Attender: Marva SAUCEDA [facility] Medical 08/03/2020 12:00:00 AM EDT [facility]) Marva Lynn PA-C: [address], [place] [address], Ph. Attender: Mrava [facility]UC[facility] Medical 08/03/2020 12:00:00 AM EDT [place] ([facility]) Marva Lynn PA-C: [address], [place] [address], Ph. Attender: Marva SAUCEDA [facility] Medical 08/03/2020 12:00:00 AM EDT [facility]) Marva Lynn PA-C: [address], [place] [address], Ph. Attender: Marva SAUCEDA [facility] Medical 08/03/2020 12:00:00 AM EDT [place] ([facility]) Marva Lynn PA-C: [address], [place] [address], Ph. Attender: Marva SAUCEDA [facility] Medical 08/03/2020 12:00:00 AM EDT [facility] ([facility]) Marva Lynn PA-C: [address], [place] [address], Ph. Attender: Marva SAUCEDA [facility] Medical 08/03/2020 12:00:00 AM EDT [place] ([facility]) Marva Lynn PA-C: [address], [facility] [place] [address], Ph. Attender: Marva SAUCEDA [facility] Medical 08/03/2020 12:00:00 AM EDT [place] ([facility]) Marva Lynn PA-C: [address], [facility] [place] [address], Ph. Attender: Marva SAUCEDA [facility] Medical 08/03/2020 12:00:00 AM EDT [place] ([facility]) Oriana Pierre LMSW: [address], [place] [address], Ph. Attender: Oriana Pierre [facility] Medical 07/26/2020 12:00:00 AM EDT [facility] ([facility]) Oriana Pierre LMSW: [address], [place] [address], Ph. Attender: Oriana Pierre [facility] Medical 07/26/2020 12:00:00 AM EDT [facility]) Oriana Pierre, [facility]: [address] [place] [address], Ph. Attender: Oriana Pierre [facility] Medical 07/26/2020 12:00:00 AM EDT [place] ([facility]) Oriana Pierre, [facility]: [address] [place] [address], Ph. Attender: Oriana Pierre [facility] Medical 07/26/2020 12:00:00 AM EDT [facility]) [facility]: [address] [place] [address], Ph. Attender: Oriana Pierre [facility] Medical 07/26/2020 12:00:00 AM EDT [facility]: [address] [place] [address], Ph. Attender: Oriana Pierre [facility] Medical 07/26/2020 12:00:00 AM EDT [facility] ([facility]) [facility]: [address] [place] [address], Ph. Attender: Oriana Pierre [facility] Medical 07/26/2020 12:00:00 AM EDT [facility] ([facility]) [facility]: [address] [place], [place] [address], Ph. Attender: Oriana Pierre [facility] Medical 07/26/2020 12:00:00 AM EDT [facility]) Oriana Pierre, [facility]: [address], [place] [address], Ph. Attender: Oriana Pierre [facility] Medical 07/26/2020 12:00:00 AM EDT [facility]) Oriana Pierre, [employer]: [address], [place] [address], Ph. Attender: Oriana Pierre [facility] Medical 07/26/2020 12:00:00 AM EDT [facility]) Oriana Pierre, [facility]: [address], [place] [address], Ph. Attender: Oriana Pierre [facility] Medical 07/12/2020 12:00:00 AM EDT [facility]) Oriana Pierre, [facility]: [address], [place] [address], Ph. Attender: Oriana Pierre [facility] Medical 07/12/2020 12:00:00 AM EDT [facility]) Oriana Pierre, [employer]: [address], [place] [address], Ph. Attender: Oriana Pierre [facility] Medical 07/12/2020 12:00:00 AM EDT [place] ([facility]) Oriana Pierre, [facility]: [address], [place] [address], Ph. Attender: Oriana Pierre [facility] Medical 07/12/2020 12:00:00 AM EDT [facility]) Oriana Pierre, [facility]: [address], [place] [address], Ph. Attender: Oriana Pierre [facility] Medical 07/12/2020 12:00:00 AM EDT [facility]) Oriana Pierre, [facility]: [address], [place] [address], Ph. Attender: Oriana Pierre [facility] Medical 07/12/2020 12:00:00 AM EDT [facility]) Oriana Pierre, [facility]: [address], [place] [address], Ph. Attender: Oriana Pierre [facility] Medical 07/12/2020 12:00:00 AM EDT [facility]) Oriana Pierre, [facility]: [address] [place] [address], Ph. Attender: Oriana Pierre [facility] Medical 07/12/2020 12:00:00 AM EDT [facility]) Oriana Pierre, [facility]: [address], [place] [address], Ph. Attender: Oriana Pierre [facility] Medical 07/12/2020 12:00:00 AM EDT [facility]) Oriana Pierre, [facility]: [address] [place] [address], Ph. Attender: Oriana Pierre [facility] Medical 07/12/2020 12:00:00 AM EDT [facility]) Oriana Pierre, [facility]: [address], [place] [address], Ph. Attender: Oriana Pierre [facility] Medical 07/12/2020 12:00:00 AM EDT [place] ([facility]) Outpatient Attender: Nancy Gutierrez/Miguel/Giuseppe/Mey summersndl 07/04/2020 09:15:00 AM EDT [place] ([facility], ) Oriana Pierre, [facility]: [address] [place] [address], Ph. Attender: Oriana Pierre [facility] Medical 07/02/2020 12:00:00 AM EDT [facility]) Oriana Pierre, [facility]: [address] [place] [address], Ph. Attender: Oriana Pierre [facility] Medical 07/02/2020 12:00:00 AM EDT [facility]) Oriana Pierre, [facility]: [address] [place] [address], Ph. Attender: Oriana Pierre [facility] Medical 07/02/2020 12:00:00 AM EDT [facility]) [facility] [address] [place] [address], Ph. Attender: Oriana Pierre [facility] Medical 07/02/2020 12:00:00 AM EDT [facility]) [facility] [address] [place] [address], Ph. Attender: Oriana Pierre [facility] Medical 07/02/2020 12:00:00 AM EDT [facility]) [facility]: [address] [place] [address], Ph. Attender: Oriana Pierre [facility] Medical 07/02/2020 12:00:00 AM EDT [facility]) Oriana Pierre, [facility]: [address], [place] [address], Ph. Attender: Oriana Pierre [facility] Medical 07/02/2020 12:00:00 AM EDT [place] ([facility]) Oriana Pierre, [employer]: [address], [place] [address], Ph. Attender: Oriana Pierre [facility] Medical 07/02/2020 12:00:00 AM EDT [facility]) Oriana Pierre, [facility]: [address], [place] [address], Ph. Attender: Oriana Pierre [facility] Medical 07/02/2020 12:00:00 AM EDT [facility]) Oriana Pierre, [facility]: [address], [place] [address], Ph. Attender: Oriana Pierre [facility] Medical 07/02/2020 12:00:00 AM EDT [facility]) Oriana Pierre, [facility]: [address], [place] [address], Ph. Attender: Oriana Pierre [facility] Medical 07/02/2020 12:00:00 AM EDT [place] ([facility]) Oriana Pierre, [facility]: [address], [place] [address], Ph. Attender: Oriana Pierre [facility] Medical 07/02/2020 12:00:00 AM EDT [facility]) Oriana Pierre, [facility]: [address],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 12:00:00 AM EDT ANUSHA ([facility]) 052069522 Chronic back pain Chronic Back Pain Problem 05/15 12:00:00 AM EDT ANUSHA ([facility]) 18354339 Constipation Constipation Problem 05/15/2020 12:00:00 A M EDT ANUSHA ([facility]) 403882792 Gastroesophageal reflux disease Gastroesophageal Reflux Disease Problem 05/15/2020 12:00:00 AM EDT ANUSHA ([facility]) 47695888 Depressive disorder Depressive Disorder Problem 0 05/15/2020 12:00:00 AM EDT ANUSHA ([facility]) 14545303 Anxiety Anxiety Problem 05/15/2020 12:00:00 AM ED T ANUSHA ([facility]) 808783887 Obesity Obesity Problem 05/15/2020 12:00:00 AM ED T ANUSHA ([facility]) 448678894 Scoliosis deformity of spine Scoliosis Deformity of Sp ine Problem 05/15/2020 12:00:00 AM EDT ANUSHA ([facility]) 119827493 Chronic back pain Chronic Back Pain Problem 05/15 12:00:00 AM EDT ANUSHA ([facility]) 12933701 Constipation Constipation Problem 05/15/2020 12:00:00 A M EDT ANUSHA ([facility]) 560700728 Gastroesophageal reflux disease Gastroesophageal Reflux Disease Problem 05/15/2020 12:00:00 AM EDT ANUSHA ([facility]) 14435125 Depressive disorder Depressive Disorder Problem 0 05/15/2020 12:00:00 AM EDT ANUSAH ([facility]) 47240008 Anxiety Anxiety Problem 05/15/2020 12:00:00 AM ED T ANUSHA ([facility]) 992686193 Obesity Obesity Problem 05/15/2020 12:00:00 AM ED T ANUSHA ([facility]) Surgeries/Procedures Procedure Description Date Indications Data Source(s) Laparoscopy,Surgical;Cholecystectomy 11/06/2020 12:00: 00 AM EDT [facility] ([facility], ) THERAPEUTIC PX 1/> AREAS EACH 15 MIN EXERCISES 021 12:00:00 AM EDT MED[facility] ([facility] ) MANUAL THERAPY TQS 1/> REGIONS EACH 15 MINUTES 12:00:00 AM EDT MED[facility] ([facility] ) APPLICATION MODALITY 1/> AREAS HOT/COLD PACKS 10/30/19 12:00:00 AM EDT [facility] ([facility] ) THERAPEUTIC PX 1/> AREAS EACH 15 MIN EXERCISES 12:00:00 AM EDT [facility] ([facility] ) MANUAL THERAPY TQS 1/> REGIONS EACH 15 MINUTES 12:00:00 AM EDT [facility] ([facility] ) APPLICATION MODALITY 1/> AREAS HOT/COLD PACKS 10/26/19 21 12:00:00 AM EDT [facility] ([facility] ) THERAPEUTIC PX 1/> AREAS EACH 15 MIN EXERCISES 021 12:00:00 AM EDT [facility] ([facility] ) MANUAL THERAPY TQS 1/> REGIONS EACH 15 MINUTES 021 12:00:00 AM EDT [facility] ([facility] ) THERAPEUTIC PX 1/> AREAS EACH 15 MIN EXERCISES 021 12:00:00 AM EDT [facility] ([facility] ) MANUAL THERAPY TQS 1/> REGIONS EACH 15 MINUTES 10/23/2 021 12:00:00 AM EDT [facility] ([facility]) Physical Therapy Eval - Low Complexity 10/15/2020 12:0 0:00 AM EDT [facility] ([facility] ) OFFICE OUTPATIENT NEW 45 MINUTES 10/03/2020 12:00:00 A M EDT [facility] ([facility]) OFFICE OUTPATIENT VISIT 25 MINUTES 10/03/2020 12:00:00 AM EDT [facility] ([facility], ) OFFICE CONSULTATION NEW/ESTAB PATIENT 60 MIN 12:00:00 AM EDT [facility] ([facility]) OFFICE OUTPATIENT VISIT 25 MINUTES 09/13/2020 12:00:00 AM EDT [facility] ([facility], ) Endoscopy Upper GI Biopsy 08/30/2020 12:00:00 AM EDT MED[facility] ([facility], ) Colonoscopy Flexible Proximal To Splenic Flexure Diagnostic W/Or 08/30/2020 12:00:00 AM EDT MED[facility] ([facility] ) OFFICE OUTPATIENT NEW 45 MINUTES 07/04/2020 12:00:00 A M EDT MED[facility] ([facility], ) XR, cervical spine, 2 or 3 view 05/15/2020 12:00:00 AM EDT [facility]) XR, thoracic spine, 2 view 05/15/2020 12:00:00 AM EDT [facility]) XR, lumbar spine, 2 view 05/15/2020 12:00:00 AM EDT [facility]) XR, cervical spine, 2 or 3 view 05/15/2020 12:00:00 AM EDT ANUSHA ([facility]) XR, thoracic spine, 2 view 05/15/2020 12:00:00 AM EDT [facility]) XR, lumbar spine, 2 view 05/15/2020 12:00:00 AM EDT [facility]) XR, cervical spine, 2 or 3 view 05/15/2020 12:00:[facility], [facility] spine, 2 view 05/15/2020 12:00:00 AM EDT ANUSHA ([facility]) XR, lumbar spine, 2 view 05/15/2020 12:00:00 AM EDT ANUSHA ([facility]) XR, cervical spine, 2 or 3 view 05/15/2020 12:00:00 AM EDT ANUSHA ([facility]) XR, thoracic spine, 2 view 05/15/2020 12:00:00 AM EDT ANUSHA ([facility]) XR, lumbar spine, 2 view 05/15/2020 12:00:00 AM EDT ANUSHA ([facility]) XR, cervical spine, 2 or 3 view 05/15/2020 12:00:00 AM EDT ANUSHA ([facility]) XR, thoracic spine, 2 view 05/15/2020 12:00:00 AM EDT ANUSHA ([facility]) XR, lumbar spine, 2 view 05/15/2020 12:00:00 AM EDT ANUSHA ([facility]) XR, cervical spine, 2 or 3 view 05/15/2020 12:00:00 AM EDT ANUSHA ([facility]) XR, thoracic spine, 2 view 05/15/2020 12:00:00 AM EDT ANUSHA ([facility]) XR, lumbar spine, 2 view 05/15/2020 12:00:00 AM EDT ANUSHA ([facility]) XR, cervical spine, 2 or 3 view 05/15/2020 12:00:00 AM EDT ANUSHA ([facility]) XR, thoracic spine, 2 view 05/15/2020 12:00:00 AM EDT ANUSHA ([facility]) XR, lumbar spine, 2 view 05/15/2020 12:00:00 AM EDT ANUSHA ([facility]) XR, cervical spine, 2 or 3 view 05/15/2020 12:00:00 AM EDT ANUSHA ([facility]) XR, thoracic spine, 2 view 05/15/2020 12:00:00 AM EDT ANUSHA ([facility]) XR, lumbar spine, 2 view 05/15/2020 12:00:00 AM EDT ANUSHA ([facility]) XR, cervical spine, 2 or 3 view 05/15/2020 12:00:00 AM EDT ANUSHA ([facility]) XR, thoracic spine, 2 view 05/15/2020 12:00:00 AM EDT ANUSHA ([facility]) XR, lumbar spine, 2 view 05/15/2020 12:00:00 AM EDT ANUSHA ([facility]) XR, cervical spine, 2 or 3 view 05/15/2020 12:00:00 AM EDT ANUSHA ([facility]) XR, thoracic spine, 2 view 05/15/2020 12:00:00 AM EDT ANUSHA ([facility]) XR, lumbar spine, 2 view 05/15/2020 12:00:00 AM EDT [place] ([facility]) XR, cervical spine, 2 or 3 view 05/15/2020 12:00:00 AM EDT [place] ([facility]) XR, thoracic spine, 2 view 05/15/2020 12:00:00 AM EDT ANUSHA ([facility]) XR, lumbar spine, 2 view 05/15/2020 12:00:00 AM EDT ANUSHA ([facility]) XR, cervical spine, 2 or 3 view 05/15/2020 12:00:00 AM EDT [place] ([facility]) XR, thoracic spine, 2 view 05/15/2020 12:00:00 AM EDT ANUSHA ([facility]) XR, lumbar spine, 2 view 05/15/2020 12:00:00 AM EDT ANUSHA ([facility]) XR, cervical spine, 2 or 3 view 05/15/2020 12:00:00 AM EDT ANUSHA ([facility]) XR, thoracic spine, 2 view 05/15/2020 12:00:00 AM EDT ANUSHA ([facility]) XR, lumbar spine, 2 view 05/15/2020 12:00:00 AM EDT [place] ([facility]) Results ID Date Data Source [id number] 11/29/2020 08:56:00 AM EDT ANUSHA ([facility]) Name Value Range Interpretation Code Description Data Ailyn rce(s) Supporting Document(s) HCG negative Hcg ANUSHA ([facility]) ID Date Data Source [id number] 11/29/2020 12:00:00 AM EDT ANUSHA ([facility]) Name Value Range Interpretation Code Description Data Ailyn rce(s) Supporting Document(s) Follitropin [Units/volume] in Serum or Plasma 6.5 mIU/mL Fsh ANUSHA ([facility]) Lutropin [Units/volume] in Serum or Plasma 11.2 mIU/mL Lh [place] ([facility]) ID Date Data Source [id number] 11/28/2020 12:00:00 AM EDT ANUSHA ([facility]) Name Value Range Interpretation Code Description Data Ailyn rce(s) Supporting Document(s) Leukocytes [#/volume] in Blood by Automated count 4.6 thousand/uL 3 .8-10.8 White Blood Cell Count ANUSHA ([facility]) Erythrocytes [#/volume] in Blood by Automated count 4.14 million/uL 3.80-5.10 Red Blood Cell Count ANUSHA ([facility]) Hematocrit [Volume Fraction] of Blood by Automated count 38.5 % 35.0-45.0 Hematocrit ANUSHA ([facility]) Hemoglobin [Mass/volume] in Blood 12.7 g/dL 11.7-15.5 He moglobin ANUSHA ([facility]) Erythrocyte mean corpuscular volume [Entitic volume] by Auto mated count 93.0 fL 80.0-100.0 Mcv AN[facility]HA ([facility]) Erythrocyte mean corpuscular hemoglobin [Entitic mass] by Automated count 30.7 pg 27.0-33.0 Mch ANUSHA ([facility]) Erythrocyte mean corpuscular hemoglobin concentration [Mass/volume] by Automated count 33.0 g/dL 32.0-36.0 Mchc ANUSHA ([facility]) Erythrocyte distribution width [Ratio] by Automated count 12.3 % 11.0-15.0 Rdw ANUSHA ([facility]) Platelets [#/volume] in Blood by Automated count 180 thousand/uL 14 0-400 Platelet Count [place] ([facility]) Platelet mean volume [Entitic volume] in Blood by Don-Ifrah 12.5 f L 7.5-12.5 Mpv [place] ([facility]) ID Date Data Source [id number] 11/28/2020 12:00:00 AM EDT [facility]) Name Value Range Interpretation Code Description Data Ailyn rce(s) Supporting Document(s) Chlamydia trachomatis rRNA [Presence] in Unspecified specimen by Probe and target amplification method not detected not detected Chla mydia Trachomatis RNA, Tma, Urogenital [place] ([facility]) Trichomonas vaginalis rRNA [Presence] in Unspecified specimen by Probe and target amplification method detected not detected Abnormal (ap plies to non- numeric results) sureswab(R) Trichomonas Vaginalis RNA, Ql, Tma [place] ([facility]) Neisseria gonorrhoeae rRNA [Presence] in Unspecified specimen by Probe and target amplification method not detected not detected Neis seria Gonorrhoeae RNA, Tma, Urogenital [place] ([facility]) Service comment 05 see note Assay Details [facility] ([facility]) Mycoplasma genitalium DNA [Presence] in Unspecified specimen by Probe and target amplification method not detected not detected sureswab(R ), Mycoplasma Genitalium,realtime PCR [facility]) ID Date Data Source [id number] 11/06/2020 09:51:00 AM EDT [facility] ) Name Value Range Interpretation Code Description Data Ailyn rce(s) Supporting Document(s) Surgical pathology study Laboratory test result [facility] ([facility], ) FINAL DIAGNOSIS Gallbladder, cholecystectomy: Cholelithiasis and chronic cholecystitis. 11/07/2020 - 1009 CLINICAL DIAGNOSIS Gallstones 11/06/2020 - 1331 GROSS DIAGNOSIS Received in formalin labeled "gallbladder and content" is an approximately 7 x 4 x 2 cm gallbladder. The serosal lining is smooth. The lumen contains a 1 cm green gallstone. The mucosal lining is smooth. The wall is maximally 0.8 cm in thickness. [employer]. - 11/06/2020 - 1331 Signed Asher Perez MD 11/07/2020 1125 ID Date Data Source [id number] 11/01/2020 09:55:00 AM [facility] Name Value Range Interpretation Code Description Data Ailyn rce(s) Supporting Document(s) ID Date Data Source [id number] 11/01/2020 09:55:00 AM EDT [facility]) Name Value Range Interpretation Code Description Data Ailyn rce(s) Supporting Document(s) ID Date Data Source [id number] 11/01/2020 09:55:00 AM EDT [facility] Name Value Range Interpretation Code Description Data Ailyn rce(s) Supporting Document(s) ID Date Data Source [id number] 11/01/2020 09:55:00 AM EDT [facility] Name Value Range Interpretation Code Description Data Ailyn rce(s) Supporting Document(s) ID Date Data Source [id number] 11/01/2020 09:55:00 AM EDT [facility] Name Value Range Interpretation Code Description Data Ailyn rce(s) Supporting Document(s) ID Date Data Source [id number] 11/01/2020 09:55:00 AM EDT [facility] Name Value Range Interpretation Code Description Data Ailyn rce(s) Supporting Document(s) SARS-CoV-2 (COVID-19) RNA [Presence] in Respiratory specimen by [facility] with probe detection Not Detected [facility] This lab was ordered by [facility] and reported by [employer] ID Date Data Source [id number] 08/30/2020 10:03:00 AM EDT [facility] ([facility], ) Name Value Range Interpretation Code Description Data Ailyn rce(s) Supporting Document(s) Surgical pathology study Laboratory test result [facility] ([facility]) FINAL DIAGNOSIS Stomach, antral biopsy: Gastric mucosa with minimal inflammation and reactive changes. No H.pylori is identified. 08/31/2020 - 1232 CLINICAL DIAGNOSIS Gastroesophageal reflux, rectal pain, bleeding 08/30/2020 - 150 GROSS DIAGNOSIS Received in formalin labeled "antral biopsy" and consists of fragments of tissue, 0.1 x 0.1 x 0.1 cm. All in one. -OA 08/31/2020 - 1232 Signed JAY BLOCK MD 08/31/2020 123 ID Date Data Source [id number] 08/25/2020 08:05:00 AM EDT [facility] Name Value Range Interpretation Code Description Data Ailyn rce(s) Supporting Document(s) SARS-CoV-2 (COVID-19) RNA [Presence] in Respiratory specimen by [facility] with probe detection Not Detected [facility] This lab was ordered by [facility] and reported by [employer] ID Date Data Source [id number] 05/15/2020 09:30:00 AM EDT [facility]) Name Value Range Interpretation Code Description Data Ailyn rce(s) Supporting Document(s) estimated average glucose 103 mg/dL 60-110 Estimated Average Glucose [facility]) Hemoglobin A1c/Hemoglobin.total in Blood 5.2 % Hemoglobin a1C [facility]) ID Date Data Source [id number] 05/15/2020 09:30:00 AM EDT [facility]) Name Value Range Interpretation Code Description Data Ailyn rce(s) Supporting Document(s) thyroid stimulating hormone 1.950 uIU/mL 0.358-3.740 Thyroid Stimulating Hormone [facility]) ID Date Data Source [id number] 05/15/2020 09:30:00 AM EDT [facility]) Name Value Range Interpretation Code Description Data Ailyn rce(s) Supporting Document(s) triglycerides level 65 mg/dL <150 Triglycerides Le eliel [facility] ([facility]) cholesterol level 172 mg/dL <200 Cholesterol Level [facility] ([facility]) non-HDL-C 116 mg/dL Non-hdl-c [facility] ([facility]) Cholesterol in LDL [Mass/volume] in Serum or Plasma 103 mg/dL <100 Above high normal LDL Cholesterol [facility] ([facility]) HDL cholesterol 56 mg/dL >40 HDL Cholesterol ATHE ([facility]) cholesterol risk ratio <5 Cholesterol R isk Ratio [facility] ([facility]) ID Date Data Source [id number] 05/15/2020 09:30:00 AM EDT [facility] ([facility]) Name Value Range Interpretation Code Description Data Ailyn rce(s) Supporting Document(s) glucose, fasting 98 mg/dL 70-100 Glucose, Fasting AT [facility]) glomerular filtration rate > 60.0 >60 Glomerula r Filtration Rate AN[facility] ([facility]) blood urea nitrogen 12 mg/dL 7-18 Blood Urea Nitro gen [facility] ([facility]) creatinine for GFR 0.88 mg/dL 0.55-1.30 Creatinine for GF R [facility] ([facility]) potassium serum 4.4 mEq/L 3.5-5.1 Potassium Serum ATHE NA ([facility]) sodium level 138 mEq/L 136-145 Sodium Level [facility] ([facility]) chloride level 108 mEq/L 98-107 Above high normal Chloride Level [facility] ([facility]) carbon dioxide level 26 mEq/L 21-32 Carbon Dioxide Level AN[facility] ([facility]) anion gap 4 mEq/L 8-16 Below low normal Anion Gap AN[facility]HA ( [facility]) calcium level 8.5 mg/dL 8.5-10.1 Calcium Level ANUSHA ( [facility]) ALT/SGPT 18 U/L 12-78 ALT/SGPT [facility] ([facility]) AST/SGOT 12 U/L 7-37 AST/SGOT [facility] ([facility]) alkaline phosphatase 67 U/L 45-117 Alkaline Phosph atase [facility] ([facility]) total protein 6.8 gm/dL 6.4-8.2 Total Protein AN[facility]HA ( [facility]) bilirubin,total 0.3 mg/dL 0.2-1.0 Bilirubin,total ATHE NA ([facility]) albumin 3.6 gm/dL 3.2-5.2 Albumin [facility] ([facility]) albumin/globulin ratio 1.2-2.2 Below low normal Albumin /globulin Ratio [facility] ([facility]) ID Date Data Source [id number] 05/15/2020 09:30:00 AM EDT [facility] ([facility]) Name Value Range Interpretation Code Description Data Ailyn rce(s) Supporting Document(s) white blood count 5.6 10 4.0-10.0 White Blood Count [facility] ([facility]) red blood count 4.26 10 4.00-5.40 Red Blood Count ATHE ([facility]) hematocrit 41.8 % 36.0-47.0 Hematocrit AN[facility] ([facility]) hemoglobin 12.9 g/dL 12.0-15.5 Hemoglobin AN[facility]HA ([facility]) mean corpuscular hemoglobin 30.3 pg 27.0-33.0 Mean Cor puscular Hemoglobin [facility] ([facility]) mean corpuscular volume 98.1 fL 80.0-96.0 Above high normal Mean Corpuscular Volume AN[facility]HA ([facility]) mean corpuscular HGB conc 30.9 g/dL 32.0-36.5 Below low deanna l Mean Corpuscular HGB Conc [facility] ([facility]) red cell distribution width 12.3 % 11.5-14.5 Red Cell Distribution Width [facility] ([facility]) neutrophils % 67.5 % 36.0-66.0 Above high normal Neutrophils % A THENA ([facility]) platelet count, automated 153 10 150-450 Platelet C ount, Automated AN[facility]HA ([facility]) mono % 6.8 % 2.0-8.0 [place] % [facility]HA ([facility]) lymph % 23.7 % 24.0-44.0 Below low normal Lymph % ANUSHA ( [facility]) eos % 1.4 % 0.0-3.0 Eos % [facility] ([facility]) immature granulocyte % 0.4 % 0-3.0 Immature Gran ulocyte % AN[facility]HA ([facility]) baso % 0.2 % 0.0-1.0 Baso % [place] ([facility]) nucleated red blood cell % 0.0 % 0-0 Nucleated Red Blood Cell % ANUSHA ([facility]) neutrophils # 3.8 10 1.5-8.5 Neutrophils # AN[facility]HA ( [facility]) mono # 0.4 10 0.0-0.8 [place] # ANUSHA ([facility]) lymph # 1.3 10 1.5-5.0 Below low normal Lymph # ANUSHA ( [facility]) eos # 0.1 10 0.0-0.5 Eos # [facility] ([facility]) baso # 0.0 10 0.0-0.2 Baso # [facility] ([facility]) ID Date Data Source [id number] 05/15/2020 09:30:00 AM EDT [place] ([facility]) Name Value Range Interpretation Code Description Data Ailyn rce(s) Supporting Document(s) Hemoglobin A1c/Hemoglobin.total in Blood 5.2 % Hemoglobin a1C [facility] ([facility]) estimated average glucose 103 mg/dL 60-110 Estimated Average Glucose [place] ([facility]) ID Date Data Source [id number] 05/15/2020 09:30:00 AM EDT [place] ([facility]) Name Value Range Interpretation Code Description Data Ailyn rce(s) Supporting Document(s) thyroid stimulating hormone 1.950 uIU/mL 0.358-3.740 Thyroid Stimulating Hormone [facility] ([facility]) ID Date Data Source [id number] 05/15/2020 09:30:00 AM EDT [facility]) Name Value Range Interpretation Code Description Data Ailyn rce(s) Supporting Document(s) triglycerides level 65 mg/dL <150 Triglycerides Le eliel AN[facility] ([facility]) cholesterol level 172 mg/dL <200 Cholesterol Level AN[facility]HA ([facility]) HDL cholesterol 56 mg/dL >40 HDL Cholesterol ATHE ([facility]) Cholesterol in LDL [Mass/volume] in Serum or Plasma 103 mg/dL <100 Above high normal LDL Cholesterol [facility] ([facility]) cholesterol risk ratio <5 Cholesterol R isk Ratio AN[facility]HA ([facility]) non-HDL-C 116 mg/dL Non-hdl-c [facility] ([facility]) ID Date Data Source [id number] 05/15/2020 09:30:00 AM EDT [place] ([facility]) Name Value Range Interpretation Code Description Data Ailyn rce(s) Supporting Document(s) glucose, fasting 98 mg/dL 70-100 Glucose, Fasting AT [facility]) blood urea nitrogen 12 mg/dL 7-18 Blood Urea Nitro gen AN[facility]HA ([facility]) creatinine for GFR 0.88 mg/dL 0.55-1.30 Creatinine for GF R AN[facility]HA ([facility]) sodium level 138 mEq/L 136-145 Sodium Level [facility] ([facility]) carbon dioxide level 26 mEq/L 21-32 Carbon Dioxide Level AN[facility]HA ([facility]) chloride level 108 mEq/L 98-107 Above high normal Chloride Level [facility] ([facility]) glomerular filtration rate > 60.0 >60 Glomerula r Filtration Rate [facility] ([facility]) potassium serum 4.4 mEq/L 3.5-5.1 Potassium Serum ATHE NA ([facility]) AST/SGOT 12 U/L 7-37 AST/SGOT [facility] ([facility]) anion gap 4 mEq/L 8-16 Below low normal Anion Gap AN[facility]HA ( [facility]) calcium level 8.5 mg/dL 8.5-10.1 Calcium Level AN[facility]HA ( [facility]) ALT/SGPT 18 U/L 12-78 ALT/SGPT [facility] ([facility]) albumin/globulin ratio 1.2-2.2 Below low normal Albumin /globulin Ratio AN[facility]HA ([facility]) total protein 6.8 gm/dL 6.4-8.2 Total Protein AN[facility]HA ( [facility]) albumin 3.6 gm/dL 3.2-5.2 Albumin [facility] ([facility]) alkaline phosphatase 67 U/L 45-117 Alkaline Phosph atase [facility] ([facility]) bilirubin,total 0.3 mg/dL 0.2-1.0 Bilirubin,total ATHE NA ([facility]) ID Date Data Source [id number] 05/15/2020 09:30:00 AM EDT [facility] ([facility]) Name Value Range Interpretation Code Description Data Ailyn rce(s) Supporting Document(s) white blood count 5.6 10 4.0-10.0 White Blood Count [facility] ([facility]) red blood count 4.26 10 4.00-5.40 Red Blood Count ATHE NA ([facility]) hematocrit 41.8 % 36.0-47.0 Hematocrit [facility]HA ([facility]) hemoglobin 12.9 g/dL 12.0-15.5 Hemoglobin [facility] ([facility]) mean corpuscular hemoglobin 30.3 pg 27.0-33.0 Mean Cor puscular Hemoglobin [facility] ([facility]) mean corpuscular volume 98.1 fL 80.0-96.0 Above high normal Mean Corpuscular Volume AN[facility]HA ([facility]) red cell distribution width 12.3 % 11.5-14.5 Red Cell Distribution Width [facility] ([facility]) mean corpuscular HGB conc 30.9 g/dL 32.0-36.5 Below low deanna l Mean Corpuscular HGB Conc AN[facility]HA ([facility]) platelet count, automated 153 10 150-450 Platelet C ount, Automated AN[facility] ([facility]) neutrophils % 67.5 % 36.0-66.0 Above high normal Neutrophils % A THENA ([facility]) lymph % 23.7 % 24.0-44.0 Below low normal Lymph % AN[facility]HA ( [facility]) mono % 6.8 % 2.0-8.0 [place] % AN[facility]HA ([facility]) neutrophils # 3.8 10 1.5-8.5 Neutrophils # [place] ( [facility]) immature granulocyte % 0.4 % 0-3.0 Immature Gran ulocyte % AN[facility]HA ([facility]) eos % 1.4 % 0.0-3.0 Eos % [facility] ([facility]) nucleated red blood cell % 0.0 % 0-0 Nucleated Red Blood Cell % AN[facility]HA ([facility]) baso % 0.2 % 0.0-1.0 Baso % [facility] ([facility]) eos # 0.1 10 0.0-0.5 Eos # [facility] ([facility]) lymph # 1.3 10 1.5-5.0 Below low normal Lymph # ANUSHA ( [facility]) mono # 0.4 10 0.0-0.8 [place] # [facility]HA ([facility]) baso # 0.0 10 0.0-0.2 Baso # [facility] ([facility]) ID Date Data Source [id number] 05/15/2020 09:30:00 AM EDT [place] ([facility]) Name Value Range Interpretation Code Description Data Ailyn rce(s) Supporting Document(s) Hemoglobin A1c/Hemoglobin.total in Blood 5.2 % Hemoglobin a1C [facility] ([facility]) estimated average glucose 103 mg/dL 60-110 Estimated Average Glucose [place] ([facility]) ID Date Data Source [id number] 05/15/2020 09:30:00 AM EDT [place] ([facility]) Name Value Range Interpretation Code Description Data Ailyn rce(s) Supporting Document(s) thyroid stimulating hormone 1.950 uIU/mL 0.358-3.740 Thyroid Stimulating Hormone [facility] ([facility]) ID Date Data Source [id number] 05/15/2020 09:30:00 AM EDT [facility] ([facility]) Name Value Range Interpretation Code Description Data Ailyn rce(s) Supporting Document(s) triglycerides level 65 mg/dL <150 Triglycerides Le eliel [facility] ([facility]) cholesterol level 172 mg/dL <200 Cholesterol Level [place] ([facility]) Cholesterol in LDL [Mass/volume] in Serum or Plasma 103 mg/dL <100 Above high normal LDL Cholesterol [facility] ([facility]) HDL cholesterol 56 mg/dL >40 HDL Cholesterol ATHE ([facility]) non-HDL-C 116 mg/dL Non-hdl-c [facility] ([facility]) cholesterol risk ratio <5 Cholesterol R isk Ratio [facility] ([facility]) ID Date Data Source [id number] 05/15/2020 09:30:00 AM EDT [facility]) Name Value Range Interpretation Code Description Data Ailyn rce(s) Supporting Document(s) glucose, fasting 98 mg/dL 70-100 Glucose, Fasting AT [facility]) creatinine for GFR 0.88 mg/dL 0.55-1.30 Creatinine for GF R [facility] ([facility]) blood urea nitrogen 12 mg/dL 7-18 Blood Urea Nitro gen [facility]HA ([facility]) sodium level 138 mEq/L 136-145 Sodium Level [facility] ([facility]) potassium serum 4.4 mEq/L 3.5-5.1 Potassium Serum ATHE NA ([facility]) chloride level 108 mEq/L 98-107 Above high normal Chloride Level AN[facility]HA ([facility]) glomerular filtration rate > 60.0 >60 Glomerula r Filtration Rate [facility] ([facility]) anion gap 4 mEq/L 8-16 Below low normal Anion Gap AN[facility]HA ( [facility]) AST/SGOT 12 U/L 7-37 AST/SGOT [facility] ([facility]) calcium level 8.5 mg/dL 8.5-10.1 Calcium Level AN[facility]HA ( [facility]) carbon dioxide level 26 mEq/L 21-32 Carbon Dioxide Level AN[facility]HA ([facility]) alkaline phosphatase 67 U/L 45-117 Alkaline Phosph atase [facility] ([facility]) total protein 6.8 gm/dL 6.4-8.2 Total Protein [facility]HA ( [facility]) albumin 3.6 gm/dL 3.2-5.2 Albumin [facility] ([facility]) ALT/SGPT 18 U/L 12-78 ALT/SGPT [facility] ([facility]) bilirubin,total 0.3 mg/dL 0.2-1.0 Bilirubin,total ATHE ([facility]) albumin/globulin ratio 1.2-2.2 Below low normal Albumin /globulin Ratio [facility] ([facility]) ID Date Data Source [id number] 05/15/2020 09:30:00 AM EDT [facility] ([facility]) Name Value Range Interpretation Code Description Data Ailyn rce(s) Supporting Document(s) hemoglobin 12.9 g/dL 12.0-15.5 Hemoglobin [facility] ([facility]) red blood count 4.26 10 4.00-5.40 Red Blood Count ATHE ([facility]) white blood count 5.6 10 4.0-10.0 White Blood Count [facility]HA ([facility]) mean corpuscular volume 98.1 fL 80.0-96.0 Above high normal Mean Corpuscular Volume [facility] ([facility]) mean corpuscular hemoglobin 30.3 pg 27.0-33.0 Mean Cor puscular Hemoglobin [facility] ([facility]) mean corpuscular HGB conc 30.9 g/dL 32.0-36.5 Below low deanna l Mean Corpuscular HGB Conc [facility] ([facility]) hematocrit 41.8 % 36.0-47.0 Hematocrit [facility] ([facility]) lymph % 23.7 % 24.0-44.0 Below low normal Lymph % [facility] ( [facility]) platelet count, automated 153 10 150-450 Platelet C ount, Automated [facility] ([facility]) red cell distribution width 12.3 % 11.5-14.5 Red Cell Distribution Width [facility] ([facility]) neutrophils % 67.5 % 36.0-66.0 Above high normal Neutrophils % A THENA ([facility]) eos % 1.4 % 0.0-3.0 Eos % [place] ([facility]) baso % 0.2 % 0.0-1.0 Baso % [place] ([facility]) immature granulocyte % 0.4 % 0-3.0 Immature Gran ulocyte % [facility] ([facility]) mono % 6.8 % 2.0-8.0 [place] % [facility] ([facility]) mono # 0.4 10 0.0-0.8 [place] # [facility]HA ([facility]) nucleated red blood cell % 0.0 % 0-0 Nucleated Red Blood Cell % [facility] ([facility]) lymph # 1.3 10 1.5-5.0 Below low normal Lymph # [facility]HA ( [facility]) neutrophils # 3.8 10 1.5-8.5 Neutrophils # [facility]HA ( [facility]) baso # 0.0 10 0.0-0.2 Baso # [facility] ([facility]) eos # 0.1 10 0.0-0.5 Eos # [facility] ([facility]) ID Date Data Source [id number] 05/15/2020 09:30:00 AM EDT [place] ([facility]) Name Value Range Interpretation Code Description Data Ailyn rce(s) Supporting Document(s) estimated average glucose 103 mg/dL 60-110 Estimated Average Glucose [place] ([facility]) Hemoglobin A1c/Hemoglobin.total in Blood 5.2 % Hemoglobin a1C [facility] ([facility]) ID Date Data Source [id number] 05/15/2020 09:30:00 AM EDT [place] ([facility]) Name Value Range Interpretation Code Description Data Ailyn rce(s) Supporting Document(s) thyroid stimulating hormone 1.950 uIU/mL 0.358-3.740 Thyroid Stimulating Hormone [facility] ([facility]) ID Date Data Source [id number] 05/15/2020 09:30:00 AM EDT [facility] ([facility]) Name Value Range Interpretation Code Description Data Ailyn rce(s) Supporting Document(s) HDL cholesterol 56 mg/dL >40 HDL Cholesterol ATHE ([facility]) triglycerides level 65 mg/dL <150 Triglycerides Le eliel [facility] ([facility]) cholesterol level 172 mg/dL <200 Cholesterol Level [facility]HA ([facility]) Cholesterol in LDL [Mass/volume] in Serum or Plasma 103 mg/dL <100 Above high normal LDL Cholesterol [facility] ([facility]) non-HDL-C 116 mg/dL Non-hdl-c [facility] ([facility]) cholesterol risk ratio <5 Cholesterol R isk Ratio [place] ([facility]) ID Date Data Source [id number] 05/15/2020 09:30:00 AM EDT [facility] ([facility]) Name Value Range Interpretation Code Description Data Ailyn rce(s) Supporting Document(s) blood urea nitrogen 12 mg/dL 7-18 Blood Urea Nitro gen [facility] ([facility]) glucose, fasting 98 mg/dL 70-100 Glucose, Fasting AT [facility] ([facility]) potassium serum 4.4 mEq/L 3.5-5.1 Potassium Serum ATHE ([facility]) glomerular filtration rate > 60.0 >60 Glomerula r Filtration Rate [facility] ([facility]) creatinine for GFR 0.88 mg/dL 0.55-1.30 Creatinine for GF R [facility] ([facility]) sodium level 138 mEq/L 136-145 Sodium Level [facility] ([facility]) chloride level 108 mEq/L 98-107 Above high normal Chloride Level AN[facility]HA ([facility]) carbon dioxide level 26 mEq/L 21-32 Carbon Dioxide Level AN[facility]HA ([facility]) anion gap 4 mEq/L 8-16 Below low normal Anion Gap AN[facility] ( [facility]) calcium level 8.5 mg/dL 8.5-10.1 Calcium Level AN[facility]HA ( [facility]) AST/SGOT 12 U/L 7-37 AST/SGOT [facility] ([facility]) alkaline phosphatase 67 U/L 45-117 Alkaline Phosph atase [facility] ([facility]) albumin 3.6 gm/dL 3.2-5.2 Albumin [facility] ([facility]) ALT/SGPT 18 U/L 12-78 ALT/SGPT [facility] ([facility]) total protein 6.8 gm/dL 6.4-8.2 Total Protein [facility]HA ( [facility]) bilirubin,total 0.3 mg/dL 0.2-1.0 Bilirubin,total ATHE ([facility]) albumin/globulin ratio 1.2-2.2 Below low normal Albumin /globulin Ratio [facility] ([facility]) ID Date Data Source [id number] 05/15/2020 09:30:00 AM EDT [facility] ([facility]) Name Value Range Interpretation Code Description Data Ailyn rce(s) Supporting Document(s) white blood count 5.6 10 4.0-10.0 White Blood Count [facility] ([facility]) red blood count 4.26 10 4.00-5.40 Red Blood Count ATHE NA ([facility]) hemoglobin 12.9 g/dL 12.0-15.5 Hemoglobin AN[facility]HA ([facility]) hematocrit 41.8 % 36.0-47.0 Hematocrit [facility] ([facility]) red cell distribution width 12.3 % 11.5-14.5 Red Cell Distribution Width [facility] ([facility]) mean corpuscular HGB conc 30.9 g/dL 32.0-36.5 Below low deanna l Mean Corpuscular HGB Conc [facility] ([facility]) mean corpuscular hemoglobin 30.3 pg 27.0-33.0 Mean Cor puscular Hemoglobin [facility] [facility] mean corpuscular volume 98.1 fL 80.0-96.0 Above high normal Mean Corpuscular Volume ANUSHA ([facility]) platelet count, automated 153 10 150-450 Platelet C ount, Automated ANUSHA ([facility]) neutrophils % 67.5 % 36.0-66.0 Above high normal Neutrophils % A THENA ([facility]) mono % 6.8 % 2.0-8.0 [place] % [place] ([facility]) baso % 0.2 % 0.0-1.0 Baso % ANUSHA ([facility]) eos % 1.4 % 0.0-3.0 Eos % ANUSHA ([facility]) lymph % 23.7 % 24.0-44.0 Below low normal Lymph % ANUSHA ( [facility]) lymph # 1.3 10 1.5-5.0 Below low normal Lymph # ANUSHA ( [facility]) neutrophils # 3.8 10 1.5-8.5 Neutrophils # ANUSHA ( [facility]) mono # 0.4 10 0.0-0.8 [place] # [place] ([facility]) nucleated red blood cell % 0.0 % 0-0 Nucleated Red Blood Cell % ANUSHA ([facility]) immature granulocyte % 0.4 % 0-3.0 Immature Gran ulocyte % ANUSHA ([facility]) baso # 0.0 10 0.0-0.2 Baso # ANUSHA ([facility]) eos # 0.1 10 0.0-0.5 Eos # ANUSHA ([facility]) ID Date Data Source [id number] 05/15/2020 09:30:00 AM EDT [place] ([facility]) Name Value Range Interpretation Code Description Data Ailyn rce(s) Supporting Document(s) estimated average glucose 103 mg/dL 60-110 Estimated Average Glucose ANUSHA ([facility]) Hemoglobin A1c/Hemoglobin.total in Blood 5.2 % Hemoglobin a1C ANUSHA ([facility]) ID Date Data Source [id number] 05/15/2020 09:30:00 AM EDT ANUSHA ([facility]) Name Value Range Interpretation Code Description Data Ailyn rce(s) Supporting Document(s) thyroid stimulating hormone 1.950 uIU/mL 0.358-3.740 Thyroid Stimulating Hormone ANUSHA ([facility]) ID Date Data Source [id number] 05/15/2020 09:30:00 AM EDT ANUSHA ([facility]) Name Value Range Interpretation Code Description Data Ailyn rce(s) Supporting Document(s) triglycerides level 65 mg/dL <150 Triglycerides Le eliel ANUSHA ([facility]) cholesterol level 172 mg/dL <200 Cholesterol Level ANUSHA ([facility]) HDL cholesterol 56 mg/dL >40 HDL Cholesterol ATHE ([facility]) Cholesterol in LDL [Mass/volume] in Serum or Plasma 103 mg/dL <100 Above high normal LDL Cholesterol ANUSHA ([facility]) non-HDL-C 116 mg/dL Non-hdl-c ANUSHA ([facility]) cholesterol risk ratio <5 Cholesterol R isk Ratio ANUSHA ([facility]) ID Date Data Source [id number] 05/15/2020 09:30:00 AM EDT ANUSHA ([facility]) Name Value Range Interpretation Code Description Data Ailyn rce(s) Supporting Document(s) glucose, fasting 98 mg/dL 70-100 Glucose, Fasting AT [facility] ([facility]) glomerular filtration rate > 60.0 >60 Glomerula r Filtration Rate ANUSHA ([facility]) blood urea nitrogen 12 mg/dL 7-18 Blood Urea Nitro gen ANUSHA ([facility]) sodium level 138 mEq/L 136-145 Sodium Level ANUSHA ([facility]) creatinine for GFR 0.88 mg/dL 0.55-1.30 Creatinine for GF R ANUSHA ([facility]) carbon dioxide level 26 mEq/L 21-32 Carbon Dioxide Level ANUSHA ([facility]) chloride level 108 mEq/L 98-107 Above high normal Chloride Level ANUHSA ([facility]) calcium level 8.5 mg/dL 8.5-10.1 Calcium Level ANUSHA ( [facility]) anion gap 4 mEq/L 8-16 Below low normal Anion Gap ANUSHA ( [facility]) potassium serum 4.4 mEq/L 3.5-5.1 Potassium Serum ATHE ([facility]) AST/SGOT 12 U/L 7-37 AST/SGOT ANUSHA ([facility]) alkaline phosphatase 67 U/L 45-117 Alkaline Phosph atase ANUSHA ([facility]) bilirubin,total 0.3 mg/dL 0.2-1.0 Bilirubin,total ATHE ([facility]) ALT/SGPT 18 U/L 12-78 ALT/SGPT ANUSHA ([facility]) albumin 3.6 gm/dL 3.2-5.2 Albumin ANUSHA ([facility]) total protein 6.8 gm/dL 6.4-8.2 Total Protein ANUSHA ( [facility]) albumin/globulin ratio 1.2-2.2 Below low normal Albumin /globulin Ratio ANUSHA ([facility]) ID Date Data Source [id number] 05/15/2020 09:30:00 AM EDT ANUSHA ([facility]) Name Value Range Interpretation Code Description Data Ailyn rce(s) Supporting Document(s) white blood count 5.6 10 4.0-10.0 White Blood Count ANUSHA ([facility]) hematocrit 41.8 % 36.0-47.0 Hematocrit ANUSHA ([facility]) hemoglobin 12.9 g/dL 12.0-15.5 Hemoglobin ANUSHA ([facility]) red blood count 4.26 10 4.00-5.40 Red Blood Count ATHE NA ([facility]) mean corpuscular HGB conc 30.9 g/dL 32.0-36.5 Below low deanna l Mean Corpuscular HGB Conc ANUSHA ([facility]) mean corpuscular hemoglobin 30.3 pg 27.0-33.0 Mean Cor puscular Hemoglobin ANUSHA ([facility]) red cell distribution width 12.3 % 11.5-14.5 Red Cell Distribution Width ANUSHA ([facility]) mean corpuscular volume 98.1 fL 80.0-96.0 Above high normal Mean Corpuscular Volume ANUSAH ([facility]) lymph % 23.7 % 24.0-44.0 Below low normal Lymph % ANUSHA ( [facility]) platelet count, automated 153 10 150-450 Platelet C ount, Automated ANUSHA ([facility]) mono % 6.8 % 2.0-8.0 [place] % ANUSHA ([facility]) neutrophils % 67.5 % 36.0-66.0 Above high normal Neutrophils % A THENA ([facility]) nucleated red blood cell % 0.0 % 0-0 Nucleated Red Blood Cell % ANUSHA ([facility]) immature granulocyte % 0.4 % 0-3.0 Immature Gran ulocyte % ANUSHA ([facility]) baso % 0.2 % 0.0-1.0 Baso % ANUSHA ([facility]) eos % 1.4 % 0.0-3.0 Eos % ANUSHA ([facility]) lymph # 1.3 10 1.5-5.0 Below low normal Lymph # ANUSHA ( [facility]) mono # 0.4 10 0.0-0.8 [place] # ANUSHA ([facility]) neutrophils # 3.8 10 1.5-8.5 Neutrophils # ANUSHA ( [facility]) eos # 0.1 10 0.0-0.5 Eos # ANUSHA ([facility]) baso # 0.0 10 0.0-0.2 Baso # ANUSHA ([facility]) ID Date Data Source [id number] 05/15/2020 09:30:00 AM EDT [place] ([facility]) Name Value Range Interpretation Code Description Data Ailyn rce(s) Supporting Document(s) estimated average glucose 103 mg/dL 60-110 Estimated Average Glucose ANUSHA ([facility]) Hemoglobin A1c/Hemoglobin.total in Blood 5.2 % Hemoglobin a1C [place] ([facility]) ID Date Data Source [id number] 05/15/2020 09:30:00 AM EDT ANUSHA ([facility]) Name Value Range Interpretation Code Description Data Ailyn rce(s) Supporting Document(s) thyroid stimulating hormone 1.950 uIU/mL 0.358-3.740 Thyroid Stimulating Hormone [place] ([facility]) ID Date Data Source [id number] 05/15/2020 09:30:00 AM EDT ANUSHA ([facility]) Name Value Range Interpretation Code Description Data Ailyn rce(s) Supporting Document(s) triglycerides level 65 mg/dL <150 Triglycerides Le eliel ANUSHA ([facility]) cholesterol level 172 mg/dL <200 Cholesterol Level ANUSHA ([facility]) HDL cholesterol 56 mg/dL >40 HDL Cholesterol ATHE ([facility]) non-HDL-C 116 mg/dL Non-hdl-c ANUSHA ([facility]) cholesterol risk ratio <5 Cholesterol R isk Ratio ANUSHA ([facility]) Cholesterol in LDL [Mass/volume] in Serum or Plasma 103 mg/dL <100 Above high normal LDL Cholesterol ANUSHA ([facility]) ID Date Data Source [id number] 05/15/2020 09:30:00 AM EDT [place] ([facility]) Name Value Range Interpretation Code Description Data Ailyn rce(s) Supporting Document(s) glucose, fasting 98 mg/dL 70-100 Glucose, [facility] ([facility]) blood urea nitrogen 12 mg/dL 7-18 Blood Urea Nitro gen ANUSHA ([facility]) creatinine for GFR 0.88 mg/dL 0.55-1.30 Creatinine for GF R ANUSHA ([facility]) glomerular filtration rate > 60.0 >60 Glomerula r Filtration Rate ANUSHA ([facility]) sodium level 138 mEq/L 136-145 Sodium Level ANUSHA ([facility]) anion gap 4 mEq/L 8-16 Below low normal Anion Gap ANUSHA ( [facility]) carbon dioxide level 26 mEq/L 21-32 Carbon Dioxide Level ANUSHA ([facility]) potassium serum 4.4 mEq/L 3.5-5.1 Potassium Serum ATHE ([facility]) chloride level 108 mEq/L 98-107 Above high normal Chloride Level ANUSHA ([facility]) alkaline phosphatase 67 U/L 45-117 Alkaline Phosph atase ANUSHA ([facility]) AST/SGOT 12 U/L 7-37 AST/SGOT [facility] ([facility]) calcium level 8.5 mg/dL 8.5-10.1 Calcium Level ANUSHA ( [facility]) ALT/SGPT 18 U/L 12-78 ALT/SGPT [facility] ([facility]) bilirubin,total 0.3 mg/dL 0.2-1.0 Bilirubin,total ATHE ([facility]) albumin 3.6 gm/dL 3.2-5.2 Albumin ANUSHA ([facility]) total protein 6.8 gm/dL 6.4-8.2 Total Protein ANUSHA ( [facility]) albumin/globulin ratio 1.2-2.2 Below low normal Albumin /globulin Ratio ANUSHA ([facility]) ID Date Data Source [id number] 05/15/2020 09:30:00 AM EDT ANUSHA ([facility]) Name Value Range Interpretation Code Description Data Ailyn rce(s) Supporting Document(s) white blood count 5.6 10 4.0-10.0 White Blood Count ANUSHA ([facility]) red blood count 4.26 10 4.00-5.40 Red Blood Count ATHE ([facility]) hematocrit 41.8 % 36.0-47.0 Hematocrit ANUSHA ([facility]) mean corpuscular volume 98.1 fL 80.0-96.0 Above high normal Mean Corpuscular Volume ANUSHA ([facility]) hemoglobin 12.9 g/dL 12.0-15.5 Hemoglobin ANUSHA ([facility]) mean corpuscular hemoglobin 30.3 pg 27.0-33.0 Mean Cor puscular Hemoglobin ANUSHA ([facility]) mean corpuscular HGB conc 30.9 g/dL 32.0-36.5 Below low deanna l Mean Corpuscular HGB Conc ANUSHA ([facility]) neutrophils % 67.5 % 36.0-66.0 Above high normal Neutrophils % A THENA ([facility]) platelet count, automated 153 10 150-450 Platelet C ount, Automated [place] ([facility]) red cell distribution width 12.3 % 11.5-14.5 Red Cell Distribution Width ANUHSA ([facility]) lymph % 23.7 % 24.0-44.0 Below low normal Lymph % [place] ( [facility]) mono % 6.8 % 2.0-8.0 [place] % ANUSHA ([facility]) eos % 1.4 % 0.0-3.0 Eos % [place] ([facility]) nucleated red blood cell % 0.0 % 0-0 Nucleated Red Blood Cell % [place] ([facility]) immature granulocyte % 0.4 % 0-3.0 Immature Gran ulocyte % ANUSHA ([facility]) baso % 0.2 % 0.0-1.0 Baso % ANUSHA ([facility]) neutrophils # 3.8 10 1.5-8.5 Neutrophils # ANUSHA ( [facility]) mono # 0.4 10 0.0-0.8 [place] # ANUSHA ([facility]) lymph # 1.3 10 1.5-5.0 Below low normal Lymph # ANUSHA ( [facility]) eos # 0.1 10 0.0-0.5 Eos # ANUSHA ([facility]) baso # 0.0 10 0.0-0.2 Baso # ANUSHA ([facility]) ID Date Data Source [id number] 05/15/2020 09:30:00 AM EDT AN[place]HA ([facility]) Name Value Range Interpretation Code Description Data Ailyn rce(s) Supporting Document(s) Hemoglobin A1c/Hemoglobin.total in Blood 5.2 % Hemoglobin a1C ANUSHA ([facility]) estimated average glucose 103 mg/dL 60-110 Estimated Average Glucose ANUSHA ([facility]) ID Date Data Source [id number] 05/15/2020 09:30:00 AM EDT [place] ([facility]) Name Value Range Interpretation Code Description Data Ailyn rce(s) Supporting Document(s) thyroid stimulating hormone 1.950 uIU/mL 0.358-3.740 Thyroid Stimulating Hormone [place] ([facility]) ID Date Data Source [id number] 05/15/2020 09:30:00 AM EDT [place] ([facility]) Name Value Range Interpretation Code Description Data Ailyn rce(s) Supporting Document(s) triglycerides level 65 mg/dL <150 Triglycerides Le eliel ANUSHA ([facility]) cholesterol level 172 mg/dL <200 Cholesterol Level ANUSHA ([facility]) cholesterol risk ratio <5 Cholesterol R isk Ratio ANUSHA ([facility]) non-HDL-C 116 mg/dL Non-hdl-c AN[facility]HA ([facility]) HDL cholesterol 56 mg/dL >40 HDL Cholesterol ATHE NA ([facility]) Cholesterol in LDL [Mass/volume] in Serum or Plasma 103 mg/dL <100 Above high normal LDL Cholesterol ANUSHA ([facility]) ID Date Data Source [id number] 05/15/2020 09:30:00 AM EDT ANUSHA ([facility]) Name Value Range Interpretation Code Description Data Ailyn rce(s) Supporting Document(s) glucose, fasting 98 mg/dL 70-100 Glucose, Fasting [facility] ([facility]) creatinine for GFR 0.88 mg/dL 0.55-1.30 Creatinine for GF R ANUSHA ([facility]) blood urea nitrogen 12 mg/dL 7-18 Blood Urea Nitro gen ANUSHA ([facility]) potassium serum 4.4 mEq/L 3.5-5.1 Potassium Serum ATHE NA ([facility]) chloride level 108 mEq/L 98-107 Above high normal Chloride Level ANUSHA ([facility]) glomerular filtration rate > 60.0 >60 Glomerula r Filtration Rate ANUSHA ([facility]) sodium level 138 mEq/L 136-145 Sodium Level ANUSHA ([facility]) carbon dioxide level 26 mEq/L 21-32 Carbon Dioxide Level ANUSHA ([facility]) AST/SGOT 12 U/L 7-37 AST/SGOT AN[facility]HA ([facility]) anion gap 4 mEq/L 8-16 Below low normal Anion Gap ANUSHA ( [facility]) ALT/SGPT 18 U/L 12-78 ALT/SGPT ANUSHA ([facility]) calcium level 8.5 mg/dL 8.5-10.1 Calcium Level ANUSHA ( [facility]) total protein 6.8 gm/dL 6.4-8.2 Total Protein ANUSHA ( [facility]) albumin 3.6 gm/dL 3.2-5.2 Albumin ANUSHA ([facility]) alkaline phosphatase 67 U/L 45-117 Alkaline Phosph atase ANUSHA ([facility]) bilirubin,total 0.3 mg/dL 0.2-1.0 Bilirubin,total ATHE ([facility]) albumin/globulin ratio 1.2-2.2 Below low normal Albumin /globulin Ratio ANUSHA ([facility]) ID Date Data Source [id number] 05/15/2020 09:30:00 AM EDT ANUSHA ([facility]) Name Value Range Interpretation Code Description Data Ailyn rce(s) Supporting Document(s) white blood count 5.6 10 4.0-10.0 White Blood Count ANUSHA ([facility]) mean corpuscular volume 98.1 fL 80.0-96.0 Above high normal Mean Corpuscular Volume ANUSHA ([facility]) hematocrit 41.8 % 36.0-47.0 Hematocrit ANUSHA ([facility]) hemoglobin 12.9 g/dL 12.0-15.5 Hemoglobin ANUSHA ([facility]) red blood count 4.26 10 4.00-5.40 Red Blood Count ATHE NA ([facility]) red cell distribution width 12.3 % 11.5-14.5 Red Cell Distribution Width ANUSHA ([facility]) mean corpuscular hemoglobin 30.3 pg 27.0-33.0 Mean Cor puscular Hemoglobin ANUSHA ([facility]) platelet count, automated 153 10 150-450 Platelet C ount, Automated ANUSHA ([facility]) mean corpuscular HGB conc 30.9 g/dL 32.0-36.5 Below low deanna l Mean Corpuscular HGB Conc ANUSHA ([facility]) neutrophils % 67.5 % 36.0-66.0 Above high normal Neutrophils % A THENA ([facility]) mono % 6.8 % 2.0-8.0 [place] % ANUSHA ([facility]) lymph % 23.7 % 24.0-44.0 Below low normal Lymph % ANUSHA ( [facility]) nucleated red blood cell % 0.0 % 0-0 Nucleated Red Blood Cell % ANUSHA ([facility]) eos % 1.4 % 0.0-3.0 Eos % ANUSHA ([facility]) baso % 0.2 % 0.0-1.0 Baso % ANUSHA ([facility]) immature granulocyte % 0.4 % 0-3.0 Immature Gran ulocyte % ANUSHA ([facility]) mono # 0.4 10 0.0-0.8 [place] # ANUSHA ([facility]) neutrophils # 3.8 10 1.5-8.5 Neutrophils # ANUSHA ( [facility]) lymph # 1.3 10 1.5-5.0 Below low normal Lymph # ANUSHA ( [facility]) baso # 0.0 10 0.0-0.2 Baso # ANUSHA ([facility]) eos # 0.1 10 0.0-0.5 Eos # ANUSHA ([facility]) ID Date Data Source [id number] 05/15/2020 09:30:00 AM EDT [place] ([facility]) Name Value Range Interpretation Code Description Data Ailyn rce(s) Supporting Document(s) Hemoglobin A1c/Hemoglobin.total in Blood 5.2 % Hemoglobin a1C AN[facility]HA ([facility]) estimated average glucose 103 mg/dL 60-110 Estimated Average Glucose ANUSHA ([facility]) ID Date Data Source [id number] 05/15/2020 09:30:00 AM EDT AN[facility]HA ([facility]) Name Value Range Interpretation Code Description Data Ailyn rce(s) Supporting Document(s) thyroid stimulating hormone 1.950 uIU/mL 0.358-3.740 Thyroid Stimulating Hormone ANUSHA ([facility]) ID Date Data Source [id number] 05/15/2020 09:30:00 AM EDT AN[facility]HA ([facility]) Name Value Range Interpretation Code Description Data Ailyn rce(s) Supporting Document(s) Cholesterol in LDL [Mass/volume] in Serum or Plasma 103 mg/dL <100 Above high normal LDL Cholesterol ANUSHA ([facility]) triglycerides level 65 mg/dL <150 Triglycerides Le eliel ANUSHA ([facility]) cholesterol level 172 mg/dL <200 Cholesterol Level ANUSHA ([facility]) HDL cholesterol 56 mg/dL >40 HDL Cholesterol ATHE NA ([facility]) cholesterol risk ratio <5 Cholesterol R isk Ratio ANUSHA ([facility]) non-HDL-C 116 mg/dL Non-hdl-c ANUSHA ([facility]) ID Date Data Source [id number] 05/15/2020 09:30:00 AM EDT AN[place]HA ([facility]) Name Value Range Interpretation Code Description Data Ailyn rce(s) Supporting Document(s) glucose, fasting 98 mg/dL 70-100 Glucose, Fasting [facility] ([facility]) creatinine for GFR 0.88 mg/dL 0.55-1.30 Creatinine for GF R ANUSHA ([facility]) sodium level 138 mEq/L 136-145 Sodium Level ANUSHA ([facility]) blood urea nitrogen 12 mg/dL 7-18 Blood Urea Nitro gen ANUSHA ([facility]) glomerular filtration rate > 60.0 >60 Glomerula r Filtration Rate ANUSHA ([facility]) carbon dioxide level 26 mEq/L 21-32 Carbon Dioxide Level ANUSHA ([facility]) chloride level 108 mEq/L 98-107 Above high normal Chloride Level ANUSHA ([facility]) potassium serum 4.4 mEq/L 3.5-5.1 Potassium Serum ATHE ([facility]) anion gap 4 mEq/L 8-16 Below low normal Anion Gap ANUSHA ( [facility]) calcium level 8.5 mg/dL 8.5-10.1 Calcium Level ANUSHA ( [facility]) ALT/SGPT 18 U/L 12-78 ALT/SGPT [facility] ([facility]) AST/SGOT 12 U/L 7-37 AST/SGOT AN[facility]HA ([facility]) alkaline phosphatase 67 U/L 45-117 Alkaline Phosph atase ANUSHA ([facility]) bilirubin,total 0.3 mg/dL 0.2-1.0 Bilirubin,total ATHE NA ([facility]) total protein 6.8 gm/dL 6.4-8.2 Total Protein ANUSHA ( [facility]) albumin 3.6 gm/dL 3.2-5.2 Albumin ANUSHA ([facility]) albumin/globulin ratio 1.2-2.2 Below low normal Albumin /globulin Ratio ANUSHA ([facility]) ID Date Data Source [id number] 05/15/2020 09:30:00 AM EDT ANUSHA ([facility]) Name Value Range Interpretation Code Description Data Ailyn rce(s) Supporting Document(s) red blood count 4.26 10 4.00-5.40 Red Blood Count ATHE NA ([facility]) white blood count 5.6 10 4.0-10.0 White Blood Count ANUSHA ([facility]) mean corpuscular volume 98.1 fL 80.0-96.0 Above high normal Mean Corpuscular Volume ANUSHA ([facility]) hematocrit 41.8 % 36.0-47.0 Hematocrit ANUSHA ([facility]) hemoglobin 12.9 g/dL 12.0-15.5 Hemoglobin ANUSHA ([facility]) red cell distribution width 12.3 % 11.5-14.5 Red Cell Distribution Width ANUSHA ([facility]) mean corpuscular HGB conc 30.9 g/dL 32.0-36.5 Below low deanna l Mean Corpuscular HGB Conc ANUSHA ([facility]) mean corpuscular hemoglobin 30.3 pg 27.0-33.0 Mean Cor puscular Hemoglobin ANUSHA ([facility]) platelet count, automated 153 10 150-450 Platelet C ount, Automated ANUSHA ([facility]) lymph % 23.7 % 24.0-44.0 Below low normal Lymph % [place] ( [facility]) neutrophils % 67.5 % 36.0-66.0 Above high normal Neutrophils % A THENA ([facility]) immature granulocyte % 0.4 % 0-3.0 Immature Gran ulocyte % ANUSHA ([facility]) mono % 6.8 % 2.0-8.0 [place] % ANUSHA ([facility]) baso % 0.2 % 0.0-1.0 Baso % ANUSHA ([facility]) eos % 1.4 % 0.0-3.0 Eos % ANUSHA ([facility]) nucleated red blood cell % 0.0 % 0-0 Nucleated Red Blood Cell % ANUSHA ([facility]) lymph # 1.3 10 1.5-5.0 Below low normal Lymph # ANUSHA ( [facility]) neutrophils # 3.8 10 1.5-8.5 Neutrophils # ANUSHA ( [facility]) mono # 0.4 10 0.0-0.8 [place] # ANUSHA ([facility]) baso # 0.0 10 0.0-0.2 Baso # ANUSHA ([facility]) eos # 0.1 10 0.0-0.5 Eos # ANUSHA ([facility]) ID Date Data Source [id number] 05/15/2020 09:30:00 AM EDT ANUSHA ([facility]) Name Value Range Interpretation Code Description Data Ailyn rce(s) Supporting Document(s) estimated average glucose 103 mg/dL 60-110 Estimated Average Glucose ANUSHA ([facility]) Hemoglobin A1c/Hemoglobin.total in Blood 5.2 % Hemoglobin a1C ANUSHA ([facility]) ID Date Data Source [id number] 05/15/2020 09:30:00 AM EDT ANUSHA ([facility]) Name Value Range Interpretation Code Description Data Ailyn rce(s) Supporting Document(s) thyroid stimulating hormone 1.950 uIU/mL 0.358-3.740 Thyroid Stimulating Hormone ANUSHA ([facility]) ID Date Data Source [id number] 05/15/2020 09:30:00 AM EDT ANUSHA ([facility]) Name Value Range Interpretation Code Description Data Ailyn rce(s) Supporting Document(s) cholesterol level 172 mg/dL <200 Cholesterol Level ANUSHA ([facility]) triglycerides level 65 mg/dL <150 Triglycerides Le eliel ANUSHA ([facility]) HDL cholesterol 56 mg/dL >40 HDL Cholesterol ATHE NA ([facility]) cholesterol risk ratio <5 Cholesterol R isk Ratio ANUSHA ([facility]) non-HDL-C 116 mg/dL Non-hdl-c ANUSHA ([facility]) Cholesterol in LDL [Mass/volume] in Serum or Plasma 103 mg/dL <100 Above high normal LDL Cholesterol ANUSHA ([facility]) ID Date Data Source [id number] 05/15/2020 09:30:00 AM EDT ANUSHA ([facility]) Name Value Range Interpretation Code Description Data Ailyn rce(s) Supporting Document(s) glucose, fasting 98 mg/dL 70-100 Glucose, Fasting AT [facility] ([facility]) blood urea nitrogen 12 mg/dL 7-18 Blood Urea Nitro gen ANUSHA ([facility]) potassium serum 4.4 mEq/L 3.5-5.1 Potassium Serum ATHE ([facility]) creatinine for GFR 0.88 mg/dL 0.55-1.30 Creatinine for GF R ANUSHA ([facility]) glomerular filtration rate > 60.0 >60 Glomerula r Filtration Rate ANUSHA ([facility]) sodium level 138 mEq/L 136-145 Sodium Level ANUSHA ([facility]) carbon dioxide level 26 mEq/L 21-32 Carbon Dioxide Level ANUSHA ([facility]) chloride level 108 mEq/L 98-107 Above high normal Chloride Level ANUSHA ([facility]) calcium level 8.5 mg/dL 8.5-10.1 Calcium Level ANUSHA ( [facility]) anion gap 4 mEq/L 8-16 Below low normal Anion Gap ANUSHA ( [facility]) AST/SGOT 12 U/L 7-37 AST/SGOT ANUSHA ([facility]) alkaline phosphatase 67 U/L 45-117 Alkaline Phosph atase ANUSHA ([facility]) total protein 6.8 gm/dL 6.4-8.2 Total Protein ANUSHA ( [facility]) bilirubin,total 0.3 mg/dL 0.2-1.0 Bilirubin,total ATHE ([facility]) ALT/SGPT 18 U/L 12-78 ALT/SGPT ANUSHA ([facility]) albumin/globulin ratio 1.2-2.2 Below low normal Albumin /globulin Ratio ANUSHA ([facility]) albumin 3.6 gm/dL 3.2-5.2 Albumin ANUSHA ([facility]) ID Date Data Source [id number] 05/15/2020 09:30:00 AM EDT ANUSHA ([facility]) Name Value Range Interpretation Code Description Data Ailyn rce(s) Supporting Document(s) white blood count 5.6 10 4.0-10.0 White Blood Count ANUSHA ([facility]) hematocrit 41.8 % 36.0-47.0 Hematocrit ANUSHA ([facility]) red blood count 4.26 10 4.00-5.40 Red Blood Count ATHE NA ([facility]) hemoglobin 12.9 g/dL 12.0-15.5 Hemoglobin ANUSHA ([facility]) mean corpuscular hemoglobin 30.3 pg 27.0-33.0 Mean Cor puscular Hemoglobin ANUSHA ([facility]) mean corpuscular volume 98.1 fL 80.0-96.0 Above high normal Mean Corpuscular Volume ANUSHA ([facility]) mean corpuscular HGB conc 30.9 g/dL 32.0-36.5 Below low deanna l Mean Corpuscular HGB Conc ANUSHA ([facility]) neutrophils % 67.5 % 36.0-66.0 Above high normal Neutrophils % A THENA ([facility]) red cell distribution width 12.3 % 11.5-14.5 Red Cell Distribution Width ANUSHA ([facility]) platelet count, automated 153 10 150-450 Platelet C ount, Automated ANUSHA ([facility]) lymph % 23.7 % 24.0-44.0 Below low normal Lymph % ANUSHA ( [facility]) mono % 6.8 % 2.0-8.0 [place] % ANUSHA ([facility]) immature granulocyte % 0.4 % 0-3.0 Immature Gran ulocyte % ANUSHA ([facility]) baso % 0.2 % 0.0-1.0 Baso % ANUSHA ([facility]) eos % 1.4 % 0.0-3.0 Eos % ANUSHA ([facility]) nucleated red blood cell % 0.0 % 0-0 Nucleated Red Blood Cell % ANUSHA ([facility]) lymph # 1.3 10 1.5-5.0 Below low normal Lymph # ANUSHA ( [facility]) eos # 0.1 10 0.0-0.5 Eos # ANUSHA ([facility]) neutrophils # 3.8 10 1.5-8.5 Neutrophils # ANUSHA ( [facility]) mono # 0.4 10 0.0-0.8 [place] # ANUSHA ([facility]) baso # 0.0 10 0.0-0.2 Baso # ANUSHA ([facility]) ID Date Data Source [id number] 05/15/2020 09:30:00 AM EDT [place] ([facility]) Name Value Range Interpretation Code Description Data Ailyn rce(s) Supporting Document(s) estimated average glucose 103 mg/dL 60-110 Estimated Average Glucose ANUSHA ([facility]) Hemoglobin A1c/Hemoglobin.total in Blood 5.2 % Hemoglobin a1C ANUSHA ([facility]) ID Date Data Source [id number] 05/15/2020 09:30:00 AM EDT [place] ([facility]) Name Value Range Interpretation Code Description Data Ailyn rce(s) Supporting Document(s) thyroid stimulating hormone 1.950 uIU/mL 0.358-3.740 Thyroid Stimulating Hormone ANUSHA ([facility]) ID Date Data Source [id number] 05/15/2020 09:30:00 AM EDT ANUSHA ([facility]) Name Value Range Interpretation Code Description Data Ailyn rce(s) Supporting Document(s) cholesterol level 172 mg/dL <200 Cholesterol Level ANUSHA ([facility]) HDL cholesterol 56 mg/dL >40 HDL Cholesterol ATHE NA ([facility]) Cholesterol in LDL [Mass/volume] in Serum or Plasma 103 mg/dL <100 Above high normal LDL Cholesterol ANUSHA ([facility]) triglycerides level 65 mg/dL <150 Triglycerides Le eliel ANUSHA ([facility]) cholesterol risk ratio <5 Cholesterol R isk Ratio ANUSHA ([facility]) non-HDL-C 116 mg/dL Non-hdl-c ANUSHA ([facility]) ID Date Data Source [id number] 05/15/2020 09:30:00 AM EDT [place] ([facility]) Name Value Range Interpretation Code Description Data Ailyn rce(s) Supporting Document(s) blood urea nitrogen 12 mg/dL 7-18 Blood Urea Nitro gen ANUSHA ([facility]) creatinine for GFR 0.88 mg/dL 0.55-1.30 Creatinine for GF R [place] ([facility]) glucose, fasting 98 mg/dL 70-100 Glucose, Fasting AT [facility]) glomerular filtration rate > 60.0 >60 Glomerula r Filtration Rate ANUSHA ([facility]) chloride level 108 mEq/L 98-107 Above high normal Chloride Level [place] ([facility]) carbon dioxide level 26 mEq/L 21-32 Carbon Dioxide Level [place] ([facility]) potassium serum 4.4 mEq/L 3.5-5.1 Potassium Serum ATHE ([facility]) sodium level 138 mEq/L 136-145 Sodium Level ANUSHA ([facility]) calcium level 8.5 mg/dL 8.5-10.1 Calcium Level ANUSHA ( [facility]) AST/SGOT 12 U/L 7-37 AST/SGOT ANUSHA ([facility]) anion gap 4 mEq/L 8-16 Below low normal Anion Gap ANUSHA ( [facility]) bilirubin,total 0.3 mg/dL 0.2-1.0 Bilirubin,total ATHE ([facility]) total protein 6.8 gm/dL 6.4-8.2 Total Protein ANUSHA ( [facility]) alkaline phosphatase 67 U/L 45-117 Alkaline Phosph atase ANUSHA ([facility]) ALT/SGPT 18 U/L 12-78 ALT/SGPT [place] ([facility]) albumin 3.6 gm/dL 3.2-5.2 Albumin [place] ([facility]) albumin/globulin ratio 1.2-2.2 Below low normal Albumin /globulin Ratio ANUSHA ([facility]) ID Date Data Source [id number] 05/15/2020 09:30:00 AM EDT ANUSHA ([facility]) Name Value Range Interpretation Code Description Data Ailyn rce(s) Supporting Document(s) hemoglobin 12.9 g/dL 12.0-15.5 Hemoglobin ANUSHA ([facility]) red blood count 4.26 10 4.00-5.40 Red Blood Count ATHE ([facility]) white blood count 5.6 10 4.0-10.0 White Blood Count ANUSHA ([facility]) mean corpuscular hemoglobin 30.3 pg 27.0-33.0 Mean Cor puscular Hemoglobin ANUSHA ([facility]) mean corpuscular volume 98.1 fL 80.0-96.0 Above high normal Mean Corpuscular Volume ANUSHA ([facility]) hematocrit 41.8 % 36.0-47.0 Hematocrit ANUSHA ([facility]) mean corpuscular HGB conc 30.9 g/dL 32.0-36.5 Below low deanna l Mean Corpuscular HGB Conc ANUSHA ([facility]) red cell distribution width 12.3 % 11.5-14.5 Red Cell Distribution Width ANUSHA ([facility]) platelet count, automated 153 10 150-450 Platelet C ount, Automated ANUSHA ([facility]) neutrophils % 67.5 % 36.0-66.0 Above high normal Neutrophils % A THENA ([facility]) mono % 6.8 % 2.0-8.0 [place] % ANUSHA ([facility]) baso % 0.2 % 0.0-1.0 Baso % ANUSHA ([facility]) eos % 1.4 % 0.0-3.0 Eos % ANUSHA ([facility]) lymph % 23.7 % 24.0-44.0 Below low normal Lymph % ANUSHA ( [facility]) nucleated red blood cell % 0.0 % 0-0 Nucleated Red Blood Cell % ANUSHA ([facility]) neutrophils # 3.8 10 1.5-8.5 Neutrophils # [place] ( [facility]) immature granulocyte % 0.4 % 0-3.0 Immature Gran ulocyte % ANUSHA ([facility]) lymph # 1.3 10 1.5-5.0 Below low normal Lymph # ANUSHA ( [facility]) baso # 0.0 10 0.0-0.2 Baso # ANUSHA ([facility]) mono # 0.4 10 0.0-0.8 [place] # ANUSHA ([facility]) eos # 0.1 10 0.0-0.5 Eos # [place] ([facility]) ID Date Data Source [id number] 05/15/2020 09:30:00 AM EDT [place] ([facility]) Name Value Range Interpretation Code Description Data Ailyn rce(s) Supporting Document(s) Hemoglobin A1c/Hemoglobin.total in Blood 5.2 % Hemoglobin a1C [place] ([facility]) estimated average glucose 103 mg/dL 60-110 Estimated Average Glucose [place] ([facility]) ID Date Data Source [id number] 05/15/2020 09:30:00 AM EDT [place] ([facility]) Name Value Range Interpretation Code Description Data Ailyn rce(s) Supporting Document(s) thyroid stimulating hormone 1.950 uIU/mL 0.358-3.740 Thyroid Stimulating Hormone [place] ([facility]) ID Date Data Source [id number] 05/15/2020 09:30:00 AM EDT [facility]) Name Value Range Interpretation Code Description Data Ailyn rce(s) Supporting Document(s) cholesterol level 172 mg/dL <200 Cholesterol Level [place] ([facility]) triglycerides level 65 mg/dL <150 Triglycerides Le eliel ANUSHA ([facility]) Cholesterol in LDL [Mass/volume] in Serum or Plasma 103 mg/dL <100 Above high normal LDL Cholesterol ANUSHA ([facility]) HDL cholesterol 56 mg/dL >40 HDL Cholesterol ATHE ([facility]) cholesterol risk ratio <5 Cholesterol R isk Ratio ANUSHA ([facility]) non-HDL-C 116 mg/dL Non-hdl-c ANUSHA ([facility]) ID Date Data Source [id number] 05/15/2020 09:30:00 AM EDT ANUSHA ([facility]) Name Value Range Interpretation Code Description Data Ailyn rce(s) Supporting Document(s) blood urea nitrogen 12 mg/dL 7-18 Blood Urea Nitro gen ANUSHA ([facility]) glucose, fasting 98 mg/dL 70-100 Glucose, Fasting AT [facility] ([facility]) sodium level 138 mEq/L 136-145 Sodium Level ANUSHA ([facility]) glomerular filtration rate > 60.0 >60 Glomerula r Filtration Rate ANUSHA ([facility]) creatinine for GFR 0.88 mg/dL 0.55-1.30 Creatinine for GF R ANUSHA ([facility]) potassium serum 4.4 mEq/L 3.5-5.1 Potassium Serum ATHE ([facility]) calcium level 8.5 mg/dL 8.5-10.1 Calcium Level ANUSHA ( [facility]) anion gap 4 mEq/L 8-16 Below low normal Anion Gap ANUSHA ( [facility]) carbon dioxide level 26 mEq/L 21-32 Carbon Dioxide Level ANUSHA ([facility]) chloride level 108 mEq/L 98-107 Above high normal Chloride Level ANUSHA ([facility]) ALT/SGPT 18 U/L 12-78 ALT/SGPT ANUSHA ([facility]) alkaline phosphatase 67 U/L 45-117 Alkaline Phosph atase ANUSHA ([facility]) AST/SGOT 12 U/L 7-37 AST/SGOT ANUSHA ([facility]) bilirubin,total 0.3 mg/dL 0.2-1.0 Bilirubin,total ATHE ([facility]) total protein 6.8 gm/dL 6.4-8.2 Total Protein ANUSHA ( [facility]) albumin 3.6 gm/dL 3.2-5.2 Albumin ANUSHA ([facility]) albumin/globulin ratio 1.2-2.2 Below low normal Albumin /globulin Ratio ANUSHA ([facility]) ID Date Data Source [id number] 05/15/2020 09:30:00 AM EDT ANUSHA ([facility]) Name Value Range Interpretation Code Description Data Ailyn rce(s) Supporting Document(s) white blood count 5.6 10 4.0-10.0 White Blood Count ANUSHA ([facility]) hemoglobin 12.9 g/dL 12.0-15.5 Hemoglobin ANUSHA ([facility]) mean corpuscular volume 98.1 fL 80.0-96.0 Above high normal Mean Corpuscular Volume ANUSHA ([facility]) hematocrit 41.8 % 36.0-47.0 Hematocrit ANUSHA ([facility]) red blood count 4.26 10 4.00-5.40 Red Blood Count ATHE NA ([facility]) mean corpuscular HGB conc 30.9 g/dL 32.0-36.5 Below low deanna l Mean Corpuscular HGB Conc ANUSHA ([facility]) red cell distribution width 12.3 % 11.5-14.5 Red Cell Distribution Width ANUSHA ([facility]) mean corpuscular hemoglobin 30.3 pg 27.0-33.0 Mean Cor puscular Hemoglobin ANUSHA ([facility]) neutrophils % 67.5 % 36.0-66.0 Above high normal Neutrophils % A THENA ([facility]) lymph % 23.7 % 24.0-44.0 Below low normal Lymph % ANUSHA ( [facility]) mono % 6.8 % 2.0-8.0 [place] % ANUSHA ([facility]) platelet count, automated 153 10 150-450 Platelet C ount, Automated ANUSHA ([facility]) eos % 1.4 % 0.0-3.0 Eos % ANUSHA ([facility]) immature granulocyte % 0.4 % 0-3.0 Immature Gran ulocyte % ANUSHA ([facility]) baso % 0.2 % 0.0-1.0 Baso % ANUSHA ([facility]) neutrophils # 3.8 10 1.5-8.5 Neutrophils # ANUSHA ( [facility]) mono # 0.4 10 0.0-0.8 [place] # ANUSHA ([facility]) lymph # 1.3 10 1.5-5.0 Below low normal Lymph # ANUSHA ( [facility]) nucleated red blood cell % 0.0 % 0-0 Nucleated Red Blood Cell % ANUSHA ([facility]) baso # 0.0 10 0.0-0.2 Baso # ANUSHA ([facility]) eos # 0.1 10 0.0-0.5 Eos # ANUSHA ([facility]) ID Date Data Source [id number] 05/15/2020 09:30:00 AM EDT [place] ([facility]) Name Value Range Interpretation Code Description Data Ailyn rce(s) Supporting Document(s) estimated average glucose 103 mg/dL 60-110 Estimated Average Glucose [place] ([facility]) Hemoglobin A1c/Hemoglobin.total in Blood 5.2 % Hemoglobin a1C [place] ([facility]) ID Date Data Source [id number] 05/15/2020 09:30:00 AM EDT ANUSHA ([facility]) Name Value Range Interpretation Code Description Data Ailyn rce(s) Supporting Document(s) thyroid stimulating hormone 1.950 uIU/mL 0.358-3.740 Thyroid Stimulating Hormone [place] ([facility]) ID Date Data Source [id number] 05/15/2020 09:30:00 AM EDT [place] ([facility]) Name Value Range Interpretation Code Description Data Ailyn rce(s) Supporting Document(s) triglycerides level 65 mg/dL <150 Triglycerides Le eliel ANUSHA ([facility]) Cholesterol in LDL [Mass/volume] in Serum or Plasma 103 mg/dL <100 Above high normal LDL Cholesterol ANUSHA ([facility]) HDL cholesterol 56 mg/dL >40 HDL Cholesterol ATHE NA ([facility]) cholesterol level 172 mg/dL <200 Cholesterol Level ANUSHA ([facility]) non-HDL-C 116 mg/dL Non-hdl-c ANUSHA ([facility]) cholesterol risk ratio <5 Cholesterol R isk Ratio ANUSHA ([facility]) ID Date Data Source [id number] 05/15/2020 09:30:00 AM EDT [place] ([facility]) Name Value Range Interpretation Code Description Data Ailyn rce(s) Supporting Document(s) glucose, fasting 98 mg/dL 70-100 Glucose, Fasting AT [facility]) blood urea nitrogen 12 mg/dL 7-18 Blood Urea Nitro gen ANUSHA ([facility]) creatinine for GFR 0.88 mg/dL 0.55-1.30 Creatinine for GF R ANUSHA ([facility]) potassium serum 4.4 mEq/L 3.5-5.1 Potassium Serum ATHE ([facility]) glomerular filtration rate > 60.0 >60 Glomerula r Filtration Rate ANUSHA ([facility]) sodium level 138 mEq/L 136-145 Sodium Level ANUSHA ([facility]) anion gap 4 mEq/L 8-16 Below low normal Anion Gap ANUSHA ( [facility]) chloride level 108 mEq/L 98-107 Above high normal Chloride Level ANUSHA ([facility]) carbon dioxide level 26 mEq/L 21-32 Carbon Dioxide Level ANUSHA ([facility]) AST/SGOT 12 U/L 7-37 AST/SGOT ANUSHA ([facility]) ALT/SGPT 18 U/L 12-78 ALT/SGPT ANUSHA ([facility]) calcium level 8.5 mg/dL 8.5-10.1 Calcium Level ANUSHA ( [facility]) alkaline phosphatase 67 U/L 45-117 Alkaline Phosph atase ANUSHA ([facility]) albumin 3.6 gm/dL 3.2-5.2 Albumin ANUSHA ([facility]) total protein 6.8 gm/dL 6.4-8.2 Total Protein ANUSHA ( [facility]) bilirubin,total 0.3 mg/dL 0.2-1.0 Bilirubin,total ATHE NA ([facility]) albumin/globulin ratio 1.2-2.2 Below low normal Albumin /globulin Ratio ANUSHA ([facility]) ID Date Data Source [id number] 05/15/2020 09:30:00 AM EDT ANUSHA ([facility]) Name Value Range Interpretation Code Description Data Ailyn rce(s) Supporting Document(s) white blood count 5.6 10 4.0-10.0 White Blood Count ANUSHA ([facility]) hemoglobin 12.9 g/dL 12.0-15.5 Hemoglobin ANUSHA ([facility]) red blood count 4.26 10 4.00-5.40 Red Blood Count ATHE NA ([facility]) hematocrit 41.8 % 36.0-47.0 Hematocrit ANUSHA ([facility]) mean corpuscular volume 98.1 fL 80.0-96.0 Above high normal Mean Corpuscular Volume ANUSHA ([facility]) mean corpuscular hemoglobin 30.3 pg 27.0-33.0 Mean Cor puscular Hemoglobin ANUSHA ([facility]) red cell distribution width 12.3 % 11.5-14.5 Red Cell Distribution Width ANUSHA ([facility]) mean corpuscular HGB conc 30.9 g/dL 32.0-36.5 Below low deanna l Mean Corpuscular HGB Conc ANUSHA ([facility]) mono % 6.8 % 2.0-8.0 [place] % ANUSHA ([facility]) lymph % 23.7 % 24.0-44.0 Below low normal Lymph % ANUSHA ( [facility]) platelet count, automated 153 10 150-450 Platelet C ount, Automated ANUSHA ([facility]) neutrophils % 67.5 % 36.0-66.0 Above high normal Neutrophils % A [place] ([facility]) baso % 0.2 % 0.0-1.0 Baso % ANUSHA ([facility]) eos % 1.4 % 0.0-3.0 Eos % ANUSHA ([facility]) neutrophils # 3.8 10 1.5-8.5 Neutrophils # ANUSHA ( [facility]) nucleated red blood cell % 0.0 % 0-0 Nucleated Red Blood Cell % ANUSHA ([facility]) immature granulocyte % 0.4 % 0-3.0 Immature Gran ulocyte % ANUSHA ([facility]) mono # 0.4 10 0.0-0.8 [place] # [place] ([facility]) eos # 0.1 10 0.0-0.5 Eos # ANUSHA ([facility]) lymph # 1.3 10 1.5-5.0 Below low normal Lymph # ANUSHA ( [facility]) baso # 0.0 10 0.0-0.2 Baso # ANUSHA ([facility]) ID Date Data Source [id number] 01/13/2020 12:00:00 AM EST [facility] Name Value Range Interpretation Code Description Data Ailyn rce(s) Supporting Document(s) SARS coronavirus 2 RNA [Presence] in Res piratory specimen by [facility] with probe detection [facility] This lab was ordered by Jose Argueta and reported by [email or web address]. Procedure Social History No Information Vital Signs ID Date Data Source UNK Name Value Range Interpretation Code Description Data Source(s) Body height 68 [in_i] 68 [in_i] [facility]HA ([facility]) Body height 68 [in_i] 68 [in_i] AN[facility]HA ([facility]) Body height 68 [in_i] 68 [in_i] [facility] [facility]) Body mass index (BMI) [Ratio] 30.4 kg/m2 30.4 k g/m2 ANUSHA ([facility]) Systolic blood pressure 129 mm[Hg] 129 mm[Hg] A GALLO ([facility]) Body weight 3200 [oz_av] 3200 [oz_av] ANUSHA ([facility]) Diastolic blood pressure 79 mm[Hg] 79 mm[Hg] ANUSHA ([facility]) Diastolic blood pressure 79 mm[Hg] 79 mm[Hg] ANUSHA ([facility]) Body height 68 [in_i] 68 [in_i] ANUSHA ([facility]) Body mass index (BMI) [Ratio] 30.4 kg/m2 30.4 k g/m2 ANUSHA ([facility]) Systolic blood pressure 129 mm[Hg] 129 mm[Hg] A THENA ([facility]) Body weight 3200 [oz_av] 3200 [oz_av] ANUSHA ([facility]) Diastolic blood pressure 79 mm[Hg] 79 mm[Hg] ANUSHA ([facility]) Body height 68 [in_i] 68 [in_i] ANUSHA ([facility]) Body mass index (BMI) [Ratio] 30.4 kg/m2 30.4 k g/m2 ANUSHA ([facility]) Systolic blood pressure 129 mm[Hg] 129 mm[Hg] A THENA ([facility]) Body weight 3200 [oz_av] 3200 [oz_av] ANUSHA ([facility]) Systolic blood pressure 120 mm[Hg] 120 mm[Hg] M EDLUIS ALBERTO ([facility], ) Diastolic blood pressure 58 mm[Hg] 58 mm[Hg] MEDENT ([facility], ) Body temperature 98.6 [degF] 98.6 [degF] MEDENT ([facility], ) Body height 68 [in_i] 68 [in_i] MEDENT ([facility], ) 5'8" Body weight 196.25 [lb_av] 196.25 [lb_av] MEDEN T ([facility], ) Body mass index (BMI) [Ratio] 29.8 kg/m2 29.8 k g[facility], [facility] [place] body weight 140 [lb_av] 140 [lb_av] MEDEN T ([facility], ) Body weight 89.019 kg 89.019 kg MEDENT ([facility]) Body surface area Derived from formula 2.03 m2 2.03 [facility]2 [facility] Body height 68 [in_i] 68 [in_i] MEDENT ([facility]) 5'8" Body weight 206.00 [lb_av] 206.00 [lb_av] MEDEN T ([facility]) Body mass index (BMI) [Ratio] 31.3 kg/m2 31.3 k g/m2 MEDENT ([facility]) Systolic blood pressure 119 mm[Hg] 119 mm[Hg] M EDENT ([facility]) Body height 68 [in_i] 68 [in_i] MEDENT ([facility]) 5'8" [place] body weight 140 [lb_av] 140 [lb_av] MEDEN T ([facility]) Diastolic blood pressure 76 mm[Hg] 76 mm[Hg] [facility] ([facility]) Heart rate 74 /min 74 /min [facility] ([facility]) Body temperature 98.5 [degF] 98.5 [degF] [facility] ([facility]) Body weight 207.50 [lb_av] 207.50 [lb_av] MEDEN T ([facility]) Body mass index (BMI) [Ratio] 31.5 kg/m2 31.5 k g/m2 [facility] ([facility]) Body weight 94.122 kg 94.122 kg [facility] ([facility]) Body surface area Derived from formula 2.08 m2 2.08 m2 [facility] ([facility]) Body height 68 [in_i] 68 [in_i] MEDENT ([facility]) 5'8" Body weight 209.25 [lb_av] 209.25 [lb_av] MEDEN T ([facility]) Body mass index (BMI) [Ratio] 31.8 kg/m2 31.8 k g/m2 [facility] ([facility]) [place] body weight 140 [lb_av] 140 [lb_av] MEDEN T ([facility]) Systolic blood pressure 114 mm[Hg] 114 mm[Hg] M EDENT ([facility]) Diastolic blood pressure 58 mm[Hg] 58 mm[Hg] [facility] ([facility]) Body weight 94.916 kg 94.916 kg [facility] ([facility]) Body surface area Derived from formula 2.08 m2 2.08 m2 [facility] ([facility]) Body height 68 [in_i] 68 [in_i] [facility] ([facility]) 5'8" Body weight 209.25 [lb_av] 209.25 [[facility]_av] [facility] Body mass index (BMI) [Ratio] 31.8 kg/m2 31.8 k g/m2 [facility] ([facility]) [place] body weight 140 [lb_av] 140 [lb_av] MEDEN T ([facility]) Body weight 94.916 kg 94.916 kg [facility] ([facility]) Body surface area Derived from formula 2.08 m2 2.08 m2 [facility] ([facility]) Diastolic blood pressure 73 mm[Hg] 73 mm[Hg] ANUSHA ([facility]) Body mass index (BMI) [Ratio] 31.4 kg/m2 31.4 k g/m2 [place] ([facility]) Body height 68 [in_i] 68 [in_i] ANUSHA ([facility]) Systolic blood pressure 106 mm[Hg] 106 mm[Hg] A [facility] ([facility]) Body weight 3300 [oz_av] 3300 [oz_av] ANUSHA ([facility]) Diastolic blood pressure 73 mm[Hg] 73 mm[Hg] ANUSHA ([facility]) Body height 68 [in_i] 68 [in_i] ANUSHA ([facility]) Body mass index (BMI) [Ratio] 31.4 kg/m2 31.4 k g/m2 ANUSHA ([facility]) Systolic blood pressure 106 mm[Hg] 106 mm[Hg] A [facility] ([facility]) Body weight 3300 [oz_av] 3300 [oz_av] ANUSHA ([facility]) Diastolic blood pressure 73 mm[Hg] 73 mm[Hg] ANUSHA ([facility]) Body height 68 [in_i] 68 [in_i] ANUSHA ([facility]) Body mass index (BMI) [Ratio] 31.4 kg/m2 31.4 k g/m2 ANUSHA ([facility]) Systolic blood pressure 106 mm[Hg] 106 mm[Hg] A THENA ([facility]) Body weight 3300 [oz_av] 3300 [oz_av] ANUSHA ([facility]) Diastolic blood pressure 73 mm[Hg] 73 mm[Hg] ANUSHA ([facility]) Body height 68 [in_i] 68 [in_i] ANUSHA ([facility]) Body mass index (BMI) [Ratio] 31.4 kg/m2 31.4 k g/m2 ANUSHA ([facility]) Systolic blood pressure 106 mm[Hg] 106 mm[Hg] A THENA ([facility]) Body weight 3300 [oz_av] 3300 [oz_av] ANUSHA ([facility]) Diastolic blood pressure 73 mm[Hg] 73 mm[Hg] ANUSHA ([facility]) Body height 68 [in_i] 68 [in_i] ANUSHA ([facility]) Body mass index (BMI) [Ratio] 31.4 kg/m2 31.4 k g/m2 ANUSHA ([facility]) Systolic blood pressure 106 mm[Hg] 106 mm[Hg] A THENA ([facility]) Body weight 3300 [oz_av] 3300 [oz_av] ANUSHA ([facility]) Diastolic blood pressure 73 mm[Hg] 73 mm[Hg] ANUSHA ([facility]) Body height 68 [in_i] 68 [in_i] ANUSHA ([facility]) Body mass index (BMI) [Ratio] 31.4 kg/m2 31.4 k g/m2 ANUSHA ([facility]) Systolic blood pressure 106 mm[Hg] 106 mm[Hg] A THENA ([facility]) Body weight 3300 [oz_av] 3300 [oz_av] ANUSHA ([facility]) Diastolic blood pressure 73 mm[Hg] 73 mm[Hg] ANUSHA ([facility]) Body height 68 [in_i] 68 [in_i] ANUSHA ([facility]) Body mass index (BMI) [Ratio] 31.4 kg/m2 31.4 k g/m2 ANUSHA ([facility]) Systolic blood pressure 106 mm[Hg] 106 mm[Hg] A HELDERA ([facility]) Body weight 3300 [oz_av] 3300 [oz_av] ANUSHA ([facility]) Diastolic blood pressure 73 mm[Hg] 73 mm[Hg] ANUSHA ([facility]) Body height 68 [in_i] 68 [in_i] ANUSHA ([facility]) Body mass index (BMI) [Ratio] 31.4 kg/m2 31.4 k g/m2 ANUSHA ([facility]) Systolic blood pressure 106 mm[Hg] 106 mm[Hg] A HELDERA ([facility]) Body weight 3300 [oz_av] 3300 [oz_av] ANUSHA ([facility]) Diastolic blood pressure 73 mm[Hg] 73 mm[Hg] ANUSHA ([facility]) Body height 68 [in_i] 68 [in_i] ANUSHA ([facility]) Body mass index (BMI) [Ratio] 31.4 kg/m2 31.4 k g/m2 ANUSHA ([facility]) Systolic blood pressure 106 mm[Hg] 106 mm[Hg] A HELDERA ([facility]) Body weight 3300 [oz_av] 3300 [oz_av] ANUSHA ([facility]) Body height 68 [in_i] 68 [in_i] TIERRA ([facility]) 5'8" Body weight 204.38 [lb_av] 204.38 [lb_av] MEDEN T ([facility], ) Body mass index (BMI) [Ratio] 31.1 kg/m2 31.1 k g/m2 TIERRA ([facility], ) [place] body weight 140 [lb_av] 140 [lb_av] MEDEN T ([facility]) Body weight 92.704 kg 92.704 kg MEDENT ([facility]) Body surface area Derived from formula 2.06 m2 2.06 m2 [facility] ([facility]) Body height 68 [in_i] 68 [in_i] MEDENT ([facility]) 5'8" Body weight 204.38 [lb_av] 204.38 [lb_av] MEDEN T ([facility]) Body mass index (BMI) [Ratio] 31.1 kg/m2 31.1 k g/m2 [facility] ([facility]) [place] body weight 140 [lb_av] 140 [lb_av] MEDEN T ([facility]) Systolic blood pressure 124 mm[Hg] 124 mm[Hg] M [facility] ([facility]) Diastolic blood pressure 78 mm[Hg] 78 mm[Hg] [facility] ([facility]) Body weight 92.704 kg 92.704 kg [facility] ([facility]) Body surface area Derived from formula 2.06 m2 2.06 m2 [facility] ([facility]) Systolic blood pressure 110 mm[Hg] 110 mm[Hg] M [facility] ([facility]) Diastolic blood pressure 75 mm[Hg] 75 mm[Hg] [facility] ([facility]) Heart rate 75 /min 75 /min [facility] ([facility]) Body height 68 [in_i] 68 [in_i] [facility] ([facility]) 5'8" Body weight 213.00 [lb_av] 213.00 [lb_av] MEDEN T ([facility]) Body mass index (BMI) [Ratio] 32.4 kg/m2 32.4 k g/m2 [facility] ([facility]) [place] body weight 140 [lb_av] 140 [lb_av] MEDEN T ([facility]) Body weight 96.617 kg 96.617 kg [facility] ([facility]) Body surface area Derived from formula 2.10 m2 2.10 m2 [facility] ([facility], ) Diastolic blood pressure 72 mm[Hg] 72 mm[Hg] ANUSHA ([facility]) Body height 68 [in_i] 68 [in_i] ANUSHA ([facility]) Body mass index (BMI) [Ratio] 32.6 kg/m2 32.6 k g/m2 ANUSHA ([facility]) Systolic blood pressure 106 mm[Hg] 106 mm[Hg] A THENA ([facility]) Body weight 3430 [oz_av] 3430 [oz_av] ANUSHA ([facility]) Diastolic blood pressure 72 mm[Hg] 72 mm[Hg] ANUSHA ([facility]) Body height 68 [in_i] 68 [in_i] ANUSHA ([facility]) Body mass index (BMI) [Ratio] 32.6 kg/m2 32.6 k g/m2 ANUSHA ([facility]) Systolic blood pressure 106 mm[Hg] 106 mm[Hg] A [facility] ([facility]) Body weight 3430 [oz_av] 3430 [oz_av] ANUSHA ([facility]) Diastolic blood pressure 72 mm[Hg] 72 mm[Hg] ANUSHA ([facility]) Body height 68 [in_i] 68 [in_i] ANUSHA ([facility]) Body mass index (BMI) [Ratio] 32.6 kg/m2 32.6 k g/m2 ANUSHA ([facility]) Systolic blood pressure 106 mm[Hg] 106 mm[Hg] A THENA ([facility]) Body weight 3430 [oz_av] 3430 [oz_av] ANUSHA ([facility]) Diastolic blood pressure 72 mm[Hg] 72 mm[Hg] ANUSHA ([facility]) Body height 68 [in_i] 68 [in_i] ANUSHA ([facility]) Body mass index (BMI) [Ratio] 32.6 kg/m2 32.6 k g/m2 ANUSHA ([facility]) Systolic blood pressure 106 mm[Hg] 106 mm[Hg] A THENA ([facility]) Body weight 3430 [oz_av] 3430 [oz_av] ANUSHA ([facility]) Diastolic blood pressure 72 mm[Hg] 72 mm[Hg] ANUSHA ([facility]) Body height 68 [in_i] 68 [in_i] ANUSHA ([facility]) Body mass index (BMI) [Ratio] 32.6 kg/m2 32.6 k g/m2 ANUSHA ([facility]) Systolic blood pressure 106 mm[Hg] 106 mm[Hg] A THENA ([facility]) Body weight 3430 [oz_av] 3430 [oz_av] ANUSHA ([facility]) Diastolic blood pressure 72 mm[Hg] 72 mm[Hg] ANUSHA ([facility]) Body height 68 [in_i] 68 [in_i] ANUSHA ([facility]) Body mass index (BMI) [Ratio] 32.6 kg/m2 32.6 k g/m2 ANUSHA ([facility]) Systolic blood pressure 106 mm[Hg] 106 mm[Hg] A THENA ([facility]) Body weight 3430 [oz_av] 3430 [oz_av] ANUSHA ([facility]) Diastolic blood pressure 72 mm[Hg] 72 mm[Hg] ANUSHA ([facility]) Body height 68 [in_i] 68 [in_i] ANUSHA ([facility]) Body mass index (BMI) [Ratio] 32.6 kg/m2 32.6 k g/m2 ANUSHA ([facility]) Systolic blood pressure 106 mm[Hg] 106 mm[Hg] A THENA ([facility]) Body weight 3430 [oz_av] 3430 [oz_av] ANUSHA ([facility]) Diastolic blood pressure 72 mm[Hg] 72 mm[Hg] ANUSHA ([facility]) Body height 68 [in_i] 68 [in_i] ANUSHA ([facility]) Body mass index (BMI) [Ratio] 32.6 kg/m2 32.6 k g/m2 ANUSHA ([facility]) Systolic blood pressure 106 mm[Hg] 106 mm[Hg] A THENA ([facility]) Body weight 3430 [oz_av] 3430 [oz_av] ANUSHA ([facility]) Diastolic blood pressure 72 mm[Hg] 72 mm[Hg] ANUSHA ([facility]) Body height 68 [in_i] 68 [in_i] ANUSHA ([facility]) Body mass index (BMI) [Ratio] 32.6 kg/m2 32.6 k g/m2 ANUSHA ([facility]) Systolic blood pressure 106 mm[Hg] 106 mm[Hg] A THENA ([facility]) Body weight 3430 [oz_av] 3430 [oz_av] ANUSHA ([facility]) Diastolic blood pressure 72 mm[Hg] 72 mm[Hg] ANUSHA ([facility]) Body height 68 [in_i] 68 [in_i] ANUSHA ([facility]) Body mass index (BMI) [Ratio] 32.6 kg/m2 32.6 k g/m2 ANUSHA ([facility]) Systolic blood pressure 106 mm[Hg] 106 mm[Hg] A THENA ([facility]) Body weight 3430 [oz_av] 3430 [oz_av] ANUSHA ([facility]) Diastolic blood pressure 72 mm[Hg] 72 mm[Hg] ANUSHA ([facility]) Body height 68 [in_i] 68 [in_i] ANUSHA ([facility]) Body mass index (BMI) [Ratio] 32.6 kg/m2 32.6 k g/m2 ANUSHA ([facility]) Systolic blood pressure 106 mm[Hg] 106 mm[Hg] A THENA ([facility]) Body weight 3430 [oz_av] 3430 [oz_av] ANUSHA ([facility]) Diastolic blood pressure 72 mm[Hg] 72 mm[Hg] ANUSHA ([facility]) Body height 68 [in_i] 68 [in_i] ANUSHA ([facility]) Body mass index (BMI) [Ratio] 32.6 kg/m2 32.6 k g/m2 ANUSHA ([facility]) Systolic blood pressure 106 mm[Hg] 106 mm[Hg] A THENA ([facility]) Body weight 3430 [oz_av] 3430 [oz_av] ANUSHA ([facility]) Diastolic blood pressure 72 mm[Hg] 72 mm[Hg] ANUSHA ([facility]) Body height 68 [in_i] 68 [in_i] ANUSHA ([facility]) Body mass index (BMI) [Ratio] 32.6 kg/m2 32.6 k g/m2 ANUSHA ([facility]) Systolic blood pressure 106 mm[Hg] 106 mm[Hg] Ajith THENA ([facility]) Body weight 3430 [oz_av] 3430 [oz_av] ANUSHA ([facility]) Patient Treatment Plan of Care Planned Activity Planned Date Details Description Data Source (s) tramadol hydrochloride 50 MG Oral Tablet ANUSHA ([facility]) Suprep Bowel Prep Kit 17.5 gram-3.13 gra m-1.6 gram oral solution TAKE DIRECTED BY DOCTOR ANUSHA ([facility]) Amoxicillin 875 MG Oral Tablet ANUSHA ([facility]) tramadol hydrochloride 50 MG Oral Tablet ANUSHA ([facility]) Suprep Bowel Prep Kit 17.5 gram-3.13 gra m-1.6 gram oral solution TAKE DIRECTED BY DOCTOR ANUSHA ([facility]) Amoxicillin 875 MG Oral Tablet ANUSHA ([facility]) tramadol hydrochloride 50 MG Oral Tablet ANUSHA ([facility]) Suprep Bowel Prep Kit 17.5 gram-3.13 gra m-1.6 gram oral solution TAKE DIRECTED BY DOCTOR ANUSHA ([facility]) Amoxicillin 875 MG Oral Tablet ANUSHA ([facility]) Suprep Bowel Prep Kit 17.5 gram-3.13 gra m-1.6 gram oral solution TAKE DIRECTED BY DOCTOR ANUSHA ([facility]) Amoxicillin 875 MG Oral Tablet ANUSHA ([facility]) Suprep Bowel Prep Kit 17.5 gram-3.13 gra m-1.6 gram oral solution TAKE DIRECTED BY DOCTOR ANUSHA ([facility]) Amoxicillin 875 MG Oral Tablet ANUSHA ([facility]) Suprep Bowel Prep Kit 17.5 gram-3.13 gra m-1.6 gram oral solution TAKE DIRECTED BY DOCTOR ANUSHA ([facility]) Amoxicillin 875 MG Oral Tablet ANUSHA ([facility])
--- NOTE | 2020-12-18 10:05 | REP ---
INDICATION: cCp COMPARISON: None. TECHNIQUE: PA/Lateral FINDINGS: Lungs: Clear, no infiltrate. Heart: Normal in size. Mediastinum: Mediastinal silhouette unremarkable. Pleural angles: Unremarkable.. Bones and soft tissues: Unremarkable. IMPRESSION: No acute pulmonary disease. <Electronically signed by Pernell Strickland > 12/18/20 1002
[2020-12-18 11:13] VITALS: BP 112/74
[2020-12-18 11:45] LABS: BASO % 0.4 % (0.0-1.0); EOS # 0.1 10^3/uL (0.0-0.5); EOS % 1.4 % (0.0-3.0); HEMATOCRIT 42.5 % (36.0-47.0); HEMOGLOBIN 13.8 g/dl (12.0-15.5); LYMPH # 1.5 10^3/uL (1.5-5.0); LYMPH % 29.1 % (24.0-44.0); MEAN CORPUSCULAR HEMOGLOBIN 30.9 pg (27.0-33.0); MEAN CORPUSCULAR HGB CONC 32.5 g/dl (32.0-36.5); MEAN CORPUSCULAR VOLUME 95.1 fl (80.0-96.0); MONO # 0.3 10^3/uL (0.0-0.8); MONO % 5.3 % (2.0-8.0); NEUTROPHILS # 3.2 10^3/uL (1.5-8.5); NEUTROPHILS % 63.6 % (36.0-66.0); PLATELET COUNT, AUTOMATED 222 10^3/uL (150-450); RED BLOOD COUNT 4.47 10^6/uL (4.00-5.40); WHITE BLOOD COUNT 5.1 10^3/uL (4.0-10.0)
[2020-12-18 12:07] LABS: ALT/SGPT 22 U/L (12-78); BILIRUBIN,TOTAL 0.4 MG/DL (0.2-1.0); BLOOD UREA NITROGEN 9 MG/DL (7-18); CALCIUM LEVEL 9.1 MG/DL (8.5-10.1); CARBON DIOXIDE LEVEL 27 MEQ/L (21-32); CHLORIDE LEVEL 111 MEQ/L (98-107); CREATININE FOR GFR 0.88 MG/DL (0.55-1.30); GLOMERULAR FILTRATION RATE > 60.0 (>60); GLUCOSE, FASTING 89 MG/DL (70-100); LIPASE 93 U/L (73-393); POTASSIUM SERUM 4.1 MEQ/L (3.5-5.1); SODIUM LEVEL 142 MEQ/L (136-145); TOTAL PROTEIN 7.4 GM/DL (6.4-8.2)
--- OUTSIDE RECORDS SUMMARY | 2020-12-18 12:11 | CCD ---
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 70-100 Glucose, Fasting AT [facility]) glomerular filtration rate > 60.0 >60 Glomerula r Filtration Rate [facility] ([facility]) blood urea nitrogen 12 mg/dL 7-18 Blood Urea Nitro gen [facility] ([facility]) creatinine for GFR 0.88 mg/dL 0.55-1.30 Creatinine for GF R [facility] ([facility]) potassium serum 4.4 mEq/L 3.5-5.1 Potassium Serum ATHE NA ([facility]) sodium level 138 mEq/L 136-145 Sodium Level [facility] ([facility]) chloride level 108 mEq/L 98-107 Above high normal Chloride Level [facility] ([facility]) carbon dioxide level 26 mEq/L 21-32 Carbon Dioxide Level [facility] ([facility]) anion gap 4 mEq/L 8-16 Below low normal Anion Gap [facility] ( [facility]) calcium level 8.5 mg/dL 8.5-10.1 Calcium Level [facility] ( [facility]) ALT/SGPT 18 U/L 12-78 ALT/SGPT [facility] ([facility]) AST/SGOT 12 U/L 7-37 AST/SGOT [facility] ([facility]) alkaline phosphatase 67 U/L 45-117 Alkaline Phosph atase [facility] ([facility]) total protein 6.8 gm/dL 6.4-8.2 Total Protein [facility] ( [facility]) bilirubin,total 0.3 mg/dL 0.2-1.0 Bilirubin,total ATHE NA ([facility]) albumin 3.6 gm/dL 3.2-5.2 Albumin [facility] ([facility]) albumin/globulin ratio 1.2-2.2 Below low normal Albumin /globulin Ratio [facility] ([facility]) ID Date Data Source [id number] 05/15/2020 09:30:00 AM EDT [facility] ([facility]) Name Value Range Interpretation Code Description Data Ailyn rce(s) Supporting Document(s) white blood count 5.6 10 4.0-10.0 White Blood Count [facility] ([facility]) red blood count 4.26 10 4.00-5.40 Red Blood Count [facility] ([facility]) hematocrit 41.8 % 36.0-47.0 Hematocrit [facility] ([facility]) hemoglobin 12.9 g/dL 12.0-15.5 Hemoglobin [facility] ([facility]) mean corpuscular hemoglobin 30.3 pg 27.0-33.0 Mean Cor puscular Hemoglobin [facility] ([facility]) mean corpuscular volume 98.1 fL 80.0-96.0 Above high normal Mean Corpuscular Volume [facility] ([facility]) mean corpuscular HGB conc 30.9 g/dL 32.0-36.5 Below low deanna l Mean Corpuscular HGB Conc [facility] ([facility]) red cell distribution width 12.3 % 11.5-14.5 Red Cell Distribution Width [facility] ([facility]) neutrophils % 67.5 % 36.0-66.0 Above high normal Neutrophils % A THENA ([facility]) platelet count, automated 153 10 150-450 Platelet C ount, Automated [facility] ([facility]) mono % 6.8 % 2.0-8.0 Page % [facility] ([facility]) lymph % 23.7 % 24.0-44.0 Below low normal Lymph % [facility] ( [facility]) eos % 1.4 % 0.0-3.0 Eos % [facility] ([facility]) immature granulocyte % 0.4 % 0-3.0 Immature Gran ulocyte % [facility] ([facility]) baso % 0.2 % 0.0-1.0 Baso % [place] ([facility]) nucleated red blood cell % 0.0 % 0-0 Nucleated Red Blood Cell % [facility] ([facility]) neutrophils # 3.8 10 1.5-8.5 Neutrophils # [facility] ( [facility]) mono # 0.4 10 0.0-0.8 Page # [facility] ([facility]) lymph # 1.3 10 1.5-5.0 Below low normal Lymph # [facility] ( [facility]) eos # 0.1 10 0.0-0.5 Eos # [facility] ([facility]) baso # 0.0 10 0.0-0.2 Baso # [facility] ([facility]) ID Date Data Source [id number] 05/15/2020 09:30:00 AM EDT [place] ([facility]) Name Value Range Interpretation Code Description Data Ailyn rce(s) Supporting Document(s) Hemoglobin A1c/Hemoglobin.total in Blood 5.2 % Hemoglobin a1C [facility] ([facility]) estimated average glucose 103 mg/dL 60-110 Estimated Average Glucose [place] ([facility]) ID Date Data Source [id number] 05/15/2020 09:30:00 AM EDT [place] ([facility]) Name Value Range Interpretation Code Description Data Ailyn rce(s) Supporting Document(s) thyroid stimulating hormone 1.950 uIU/mL 0.358-3.740 Thyroid Stimulating Hormone [facility] ([facility]) ID Date Data Source [id number] 05/15/2020 09:30:00 AM EDT [facility]) Name Value Range Interpretation Code Description Data Ailyn rce(s) Supporting Document(s) triglycerides level 65 mg/dL <150 Triglycerides Le eliel [facility] ([facility]) cholesterol level 172 mg/dL <200 Cholesterol Level [facility] ([facility]) HDL cholesterol 56 mg/dL >40 HDL Cholesterol [facility] ([facility]) Cholesterol in LDL [Mass/volume] in Serum or Plasma 103 mg/dL <100 Above high normal LDL Cholesterol [facility] ([facility]) cholesterol risk ratio <5 Cholesterol R isk Ratio [facility] ([facility]) non-HDL-C 116 mg/dL Non-hdl-c [facility] ([facility]) ID Date Data Source [id number] 05/15/2020 09:30:00 AM EDT [place] ([facility]) Name Value Range Interpretation Code Description Data Ailyn rce(s) Supporting Document(s) glucose, fasting 98 mg/dL 70-100 Glucose, Fasting AT [facility]) blood urea nitrogen 12 mg/dL 7-18 Blood Urea Nitro gen [facility] ([facility]) creatinine for GFR 0.88 mg/dL 0.55-1.30 Creatinine for GF R [facility] ([facility]) sodium level 138 mEq/L 136-145 Sodium Level [facility] ([facility]) carbon dioxide level 26 mEq/L 21-32 Carbon Dioxide Level [facility] ([facility]) chloride level 108 mEq/L 98-107 Above high normal Chloride Level [facility] ([facility]) glomerular filtration rate > 60.0 >60 Glomerula r Filtration Rate [facility] ([facility]) potassium serum 4.4 mEq/L 3.5-5.1 Potassium Serum ATHE NA ([facility]) AST/SGOT 12 U/L 7-37 AST/SGOT [facility] ([facility]) anion gap 4 mEq/L 8-16 Below low normal Anion Gap [facility] ( [facility]) calcium level 8.5 mg/dL 8.5-10.1 Calcium Level [facility] ( [facility]) ALT/SGPT 18 U/L 12-78 ALT/SGPT [facility] ([facility]) albumin/globulin ratio 1.2-2.2 Below low normal Albumin /globulin Ratio [facility] ([facility]) total protein 6.8 gm/dL 6.4-8.2 Total Protein [facility] ( [facility]) albumin 3.6 gm/dL 3.2-5.2 Albumin [facility] ([facility]) alkaline phosphatase 67 U/L 45-117 Alkaline Phosph atase [facility] ([facility]) bilirubin,total 0.3 mg/dL 0.2-1.0 Bilirubin,total ATHE NA ([facility]) ID Date Data Source [id number] 05/15/2020 09:30:00 AM EDT [facility] ([facility]) Name Value Range Interpretation Code Description Data Ailyn rce(s) Supporting Document(s) white blood count 5.6 10 4.0-10.0 White Blood Count [facility] ([facility]) red blood count 4.26 10 4.00-5.40 Red Blood Count ATHE NA ([facility]) hematocrit 41.8 % 36.0-47.0 Hematocrit [facility] ([facility]) hemoglobin 12.9 g/dL 12.0-15.5 Hemoglobin [facility] ([facility]) mean corpuscular hemoglobin 30.3 pg 27.0-33.0 Mean Cor puscular Hemoglobin [facility] ([facility]) mean corpuscular volume 98.1 fL 80.0-96.0 Above high normal Mean Corpuscular Volume [facility] ([facility]) red cell distribution width 12.3 % 11.5-14.5 Red Cell Distribution Width [facility] ([facility]) mean corpuscular HGB conc 30.9 g/dL 32.0-36.5 Below low deanna l Mean Corpuscular HGB Conc [facility] ([facility]) platelet count, automated 153 10 150-450 Platelet C ount, Automated [facility] ([facility]) neutrophils % 67.5 % 36.0-66.0 Above high normal Neutrophils % A THENA ([facility]) lymph % 23.7 % 24.0-44.0 Below low normal Lymph % [facility] ( [facility]) mono % 6.8 % 2.0-8.0 Page % [facility] ([facility]) neutrophils # 3.8 10 1.5-8.5 Neutrophils # [place] ( [facility]) immature granulocyte % 0.4 % 0-3.0 Immature Gran ulocyte % [facility] ([facility]) eos % 1.4 % 0.0-3.0 Eos % [facility] ([facility]) nucleated red blood cell % 0.0 % 0-0 Nucleated Red Blood Cell % [facility] ([facility]) baso % 0.2 % 0.0-1.0 Baso % [facility] ([facility]) eos # 0.1 10 0.0-0.5 Eos # [facility] ([facility]) lymph # 1.3 10 1.5-5.0 Below low normal Lymph # [facility] ( [facility]) mono # 0.4 10 0.0-0.8 Page # [facility] ([facility]) baso # 0.0 10 0.0-0.2 Baso # [facility] ([facility]) ID Date Data Source [id number] 05/15/2020 09:30:00 AM EDT [place] ([facility]) Name Value Range Interpretation Code Description Data Ailyn rce(s) Supporting Document(s) Hemoglobin A1c/Hemoglobin.total in Blood 5.2 % Hemoglobin a1C [facility] ([facility]) estimated average glucose 103 mg/dL 60-110 Estimated Average Glucose [place] ([facility]) ID Date Data Source [id number] 05/15/2020 09:30:00 AM EDT [place] ([facility]) Name Value Range Interpretation Code Description Data Ailyn rce(s) Supporting Document(s) thyroid stimulating hormone 1.950 uIU/mL 0.358-3.740 Thyroid Stimulating Hormone [facility] ([facility]) ID Date Data Source [id number] 05/15/2020 09:30:00 AM EDT [facility] ([facility]) Name Value Range Interpretation Code Description Data Ailyn rce(s) Supporting Document(s) triglycerides level 65 mg/dL <150 Triglycerides Le eliel [facility] ([facility]) cholesterol level 172 mg/dL <200 Cholesterol Level [place] ([facility]) Cholesterol in LDL [Mass/volume] in Serum or Plasma 103 mg/dL <100 Above high normal LDL Cholesterol [facility] ([facility]) HDL cholesterol 56 mg/dL >40 HDL Cholesterol AT[facility] ([facility]) non-HDL-C 116 mg/dL Non-hdl-c [facility] ([facility]) cholesterol risk ratio <5 Cholesterol R isk Ratio [facility] ([facility]) ID Date Data Source [id number] 05/15/2020 09:30:00 AM EDT [facility]) Name Value Range Interpretation Code Description Data Ailyn rce(s) Supporting Document(s) glucose, fasting 98 mg/dL 70-100 Glucose, Fasting AT [facility]) creatinine for GFR 0.88 mg/dL 0.55-1.30 Creatinine for GF R [facility] ([facility]) blood urea nitrogen 12 mg/dL 7-18 Blood Urea Nitro gen [facility] ([facility]) sodium level 138 mEq/L 136-145 Sodium Level [facility] ([facility]) potassium serum 4.4 mEq/L 3.5-5.1 Potassium Serum ATHE NA ([facility]) chloride level 108 mEq/L 98-107 Above high normal Chloride Level [facility] ([facility]) glomerular filtration rate > 60.0 >60 Glomerula r Filtration Rate [facility] ([facility]) anion gap 4 mEq/L 8-16 Below low normal Anion Gap [facility] ( [facility]) AST/SGOT 12 U/L 7-37 AST/SGOT [facility] ([facility]) calcium level 8.5 mg/dL 8.5-10.1 Calcium Level AN[facility]HA ( [facility]) carbon dioxide level 26 mEq/L 21-32 Carbon Dioxide Level [facility] ([facility]) alkaline phosphatase 67 U/L 45-117 Alkaline Phosph atase [facility] ([facility]) total protein 6.8 gm/dL 6.4-8.2 Total Protein [facility] ( [facility] [facility] albumin 3.6 gm/dL 3.2-5.2 Albumin ANUSHA ([facility]) ALT/SGPT 18 U/L 12-78 ALT/SGPT [facility] ([facility]) bilirubin,total 0.3 mg/dL 0.2-1.0 Bilirubin,total ATHE ([facility]) albumin/globulin ratio 1.2-2.2 Below low normal Albumin /globulin Ratio AN[facility]HA ([facility]) ID Date Data Source [id number] 05/15/2020 09:30:00 AM EDT [facility] ([facility]) Name Value Range Interpretation Code Description Data Ailyn rce(s) Supporting Document(s) hemoglobin 12.9 g/dL 12.0-15.5 Hemoglobin AN[facility]HA ([facility]) red blood count 4.26 10 4.00-5.40 Red Blood Count ATHE ([facility]) white blood count 5.6 10 4.0-10.0 White Blood Count AN[facility]HA ([facility]) mean corpuscular volume 98.1 fL 80.0-96.0 Above high normal Mean Corpuscular Volume ANUSHA ([facility]) mean corpuscular hemoglobin 30.3 pg 27.0-33.0 Mean Cor puscular Hemoglobin ANUSHA ([facility]) mean corpuscular HGB conc 30.9 g/dL 32.0-36.5 Below low deanna l Mean Corpuscular HGB Conc ANUSHA ([facility]) hematocrit 41.8 % 36.0-47.0 Hematocrit AN[facility]HA ([facility]) lymph % 23.7 % 24.0-44.0 Below low normal Lymph % ANUSHA ( [facility]) platelet count, automated 153 10 150-450 Platelet C ount, Automated ANUSHA ([facility]) red cell distribution width 12.3 % 11.5-14.5 Red Cell Distribution Width AN[facility]HA ([facility]) neutrophils % 67.5 % 36.0-66.0 Above high normal Neutrophils % A THENA ([facility]) eos % 1.4 % 0.0-3.0 Eos % [place] ([facility]) baso % 0.2 % 0.0-1.0 Baso % [place] ([facility]) immature granulocyte % 0.4 % 0-3.0 Immature Gran ulocyte % ANUSHA ([facility]) mono % 6.8 % 2.0-8.0 Page % ANUSHA ([facility]) mono # 0.4 10 0.0-0.8 Page # AN[facility]HA ([facility]) nucleated red blood cell % 0.0 % 0-0 Nucleated Red Blood Cell % ANUSHA ([facility]) lymph # 1.3 10 1.5-5.0 Below low normal Lymph # ANUSHA ( [facility]) neutrophils # 3.8 10 1.5-8.5 Neutrophils # ANUSHA ( [facility]) baso # 0.0 10 0.0-0.2 Baso # [facility]HA ([facility]) eos # 0.1 10 0.0-0.5 Eos # [facility]HA ([facility]) ID Date Data Source [id number] 05/15/2020 09:30:00 AM EDT [place] ([facility]) Name Value Range Interpretation Code Description Data Ailyn rce(s) Supporting Document(s) estimated average glucose 103 mg/dL 60-110 Estimated Average Glucose [place] ([facility]) Hemoglobin A1c/Hemoglobin.total in Blood 5.2 % Hemoglobin a1C [facility] ([facility]) ID Date Data Source [id number] 05/15/2020 09:30:00 AM EDT [place] ([facility]) Name Value Range Interpretation Code Description Data Ailyn rce(s) Supporting Document(s) thyroid stimulating hormone 1.950 uIU/mL 0.358-3.740 Thyroid Stimulating Hormone ANUSHA ([facility]) ID Date Data Source [id number] 05/15/2020 09:30:00 AM EDT ANUSHA ([facility]) Name Value Range Interpretation Code Description Data Ailyn rce(s) Supporting Document(s) HDL cholesterol 56 mg/dL >40 HDL Cholesterol ATHE ([facility]) triglycerides level 65 mg/dL <150 Triglycerides Le eliel ANUSHA ([facility]) cholesterol level 172 mg/dL <200 Cholesterol Level ANUSHA ([facility]) Cholesterol in LDL [Mass/volume] in Serum or Plasma 103 mg/dL <100 Above high normal LDL Cholesterol AN[facility]HA ([facility]) non-HDL-C 116 mg/dL Non-hdl-c AN[facility] ([facility]) cholesterol risk ratio <5 Cholesterol R isk Ratio [place] ([facility]) ID Date Data Source [id number] 05/15/2020 09:30:00 AM EDT AN[facility]HA ([facility]) Name Value Range Interpretation Code Description Data Ailyn rce(s) Supporting Document(s) blood urea nitrogen 12 mg/dL 7-18 Blood Urea Nitro gen [facility]HA ([facility]) glucose, fasting 98 mg/dL 70-100 Glucose, Fasting AT [facility] ([facility]) potassium serum 4.4 mEq/L 3.5-5.1 Potassium Serum ATHE ([facility]) glomerular filtration rate > 60.0 >60 Glomerula r Filtration Rate AN[facility]HA ([facility]) creatinine for GFR 0.88 mg/dL 0.55-1.30 Creatinine for GF R ANUSHA ([facility]) sodium level 138 mEq/L 136-145 Sodium Level ANUSHA ([facility]) chloride level 108 mEq/L 98-107 Above high normal Chloride Level ANUSHA ([facility]) carbon dioxide level 26 mEq/L 21-32 Carbon Dioxide Level AN[facility]HA ([facility]) anion gap 4 mEq/L 8-16 Below low normal Anion Gap ANUSHA ( [facility]) calcium level 8.5 mg/dL 8.5-10.1 Calcium Level AN[facility]HA ( [facility]) AST/SGOT 12 U/L 7-37 AST/SGOT [facility] ([facility]) alkaline phosphatase 67 U/L 45-117 Alkaline Phosph atase [facility] ([facility]) albumin 3.6 gm/dL 3.2-5.2 Albumin [facility] ([facility]) ALT/SGPT 18 U/L 12-78 ALT/SGPT [facility] ([facility]) total protein 6.8 gm/dL 6.4-8.2 Total Protein AN[facility]HA ( [facility]) bilirubin,total 0.3 mg/dL 0.2-1.0 Bilirubin,total ATHE ([facility]) albumin/globulin ratio 1.2-2.2 Below low normal Albumin /globulin Ratio [facility] ([facility]) ID Date Data Source [id number] 05/15/2020 09:30:00 AM EDT [facility] ([facility]) Name Value Range Interpretation Code Description Data Ailyn rce(s) Supporting Document(s) white blood count 5.6 10 4.0-10.0 White Blood Count [facility] ([facility]) red blood count 4.26 10 4.00-5.40 Red Blood Count ATHE NA ([facility]) hemoglobin 12.9 g/dL 12.0-15.5 Hemoglobin AN[facility]HA ([facility]) hematocrit 41.8 % 36.0-47.0 Hematocrit [facility] ([facility]) red cell distribution width 12.3 % 11.5-14.5 Red Cell Distribution Width [facility] ([facility]) mean corpuscular HGB conc 30.9 g/dL 32.0-36.5 Below low deanna l Mean Corpuscular HGB Conc AN[facility]HA ([facility]) mean corpuscular hemoglobin 30.3 pg 27.0-33.0 Mean Cor puscular Hemoglobin [facility]HA ([facility]) mean corpuscular volume 98.1 fL 80.0-96.0 Above high normal Mean Corpuscular Volume AN[facility]HA ([facility]) platelet count, automated 153 10 150-450 Platelet C ount, Automated [facility] ([facility]) neutrophils % 67.5 % 36.0-66.0 Above high normal Neutrophils % A THENA ([facility]) mono % 6.8 % 2.0-8.0 Page % [place] ([facility]) baso % 0.2 % 0.0-1.0 Baso % [facility]HA ([facility]) eos % 1.4 % 0.0-3.0 Eos % [facility] ([facility]) lymph % 23.7 % 24.0-44.0 Below low normal Lymph % [facility] ( [facility]) lymph # 1.3 10 1.5-5.0 Below low normal Lymph # [facility]HA ( [facility]) neutrophils # 3.8 10 1.5-8.5 Neutrophils # [facility] ( [facility]) mono # 0.4 10 0.0-0.8 Page # [place] ([facility]) nucleated red blood cell % 0.0 % 0-0 Nucleated Red Blood Cell % [facility] ([facility]) immature granulocyte % 0.4 % 0-3.0 Immature Gran ulocyte % [facility] ([facility]) baso # 0.0 10 0.0-0.2 Baso # [facility] ([facility]) eos # 0.1 10 0.0-0.5 Eos # [facility] ([facility]) ID Date Data Source [id number] 05/15/2020 09:30:00 AM EDT [place] ([facility]) Name Value Range Interpretation Code Description Data Ailyn rce(s) Supporting Document(s) estimated average glucose 103 mg/dL 60-110 Estimated Average Glucose [facility] ([facility]) Hemoglobin A1c/Hemoglobin.total in Blood 5.2 % Hemoglobin a1C [facility] ([facility]) ID Date Data Source [id number] 05/15/2020 09:30:00 AM EDT [facility] ([facility]) Name Value Range Interpretation Code Description Data Ailyn rce(s) Supporting Document(s) thyroid stimulating hormone 1.950 uIU/mL 0.358-3.740 Thyroid Stimulating Hormone [facility] ([facility]) ID Date Data Source [id number] 05/15/2020 09:30:00 AM EDT [facility] ([facility]) Name Value Range Interpretation Code Description Data Ailyn rce(s) Supporting Document(s) triglycerides level 65 mg/dL <150 Triglycerides Le eliel [facility] ([facility]) cholesterol level 172 mg/dL <200 Cholesterol Level AN[facility]HA ([facility]) HDL cholesterol 56 mg/dL >40 HDL Cholesterol ATHE ([facility]) Cholesterol in LDL [Mass/volume] in Serum or Plasma 103 mg/dL <100 Above high normal LDL Cholesterol AN[facility]HA ([facility]) non-HDL-C 116 mg/dL Non-hdl-c AN[facility] ([facility]) cholesterol risk ratio <5 Cholesterol R isk Ratio [facility] ([facility]) ID Date Data Source [id number] 05/15/2020 09:30:00 AM EDT [facility] ([facility]) Name Value Range Interpretation Code Description Data Ailyn rce(s) Supporting Document(s) glucose, fasting 98 mg/dL 70-100 Glucose, Fasting AT [facility] ([facility]) glomerular filtration rate > 60.0 >60 Glomerula r Filtration Rate AN[facility]HA ([facility]) blood urea nitrogen 12 mg/dL 7-18 Blood Urea Nitro gen [facility]HA ([facility]) sodium level 138 mEq/L 136-145 Sodium Level AN[facility]HA ([facility]) creatinine for GFR 0.88 mg/dL 0.55-1.30 Creatinine for GF R AN[facility] ([facility]) carbon dioxide level 26 mEq/L 21-32 Carbon Dioxide Level [facility] ([facility]) chloride level 108 mEq/L 98-107 Above high normal Chloride Level [facility] ([facility]) calcium level 8.5 mg/dL 8.5-10.1 Calcium Level [facility]HA ( [facility]) anion gap 4 mEq/L 8-16 Below low normal Anion Gap AN[facility] ( [facility]) potassium serum 4.4 mEq/L 3.5-5.1 Potassium Serum ATHE ([facility]) AST/SGOT 12 U/L 7-37 AST/SGOT [facility] ([facility]) alkaline phosphatase 67 U/L 45-117 Alkaline Phosph atase [facility] ([facility]) bilirubin,total 0.3 mg/dL 0.2-1.0 Bilirubin,total ATHE ([facility]) ALT/SGPT 18 U/L 12-78 ALT/SGPT [facility] ([facility]) albumin 3.6 gm/dL 3.2-5.2 Albumin [facility] ([facility]) total protein 6.8 gm/dL 6.4-8.2 Total Protein [facility] ( [facility]) albumin/globulin ratio 1.2-2.2 Below low normal Albumin /globulin Ratio [facility] ([facility]) ID Date Data Source [id number] 05/15/2020 09:30:00 AM EDT [facility] ([facility]) Name Value Range Interpretation Code Description Data Ailyn rce(s) Supporting Document(s) white blood count 5.6 10 4.0-10.0 White Blood Count [facility] ([facility]) hematocrit 41.8 % 36.0-47.0 Hematocrit [facility] ([facility]) hemoglobin 12.9 g/dL 12.0-15.5 Hemoglobin [facility] ([facility]) red blood count 4.26 10 4.00-5.40 Red Blood Count ATHE NA ([facility]) mean corpuscular HGB conc 30.9 g/dL 32.0-36.5 Below low deanna l Mean Corpuscular HGB Conc AN[facility]HA ([facility]) mean corpuscular hemoglobin 30.3 pg 27.0-33.0 Mean Cor puscular Hemoglobin [facility]HA ([facility]) red cell distribution width 12.3 % 11.5-14.5 Red Cell Distribution Width [facility] ([facility]) mean corpuscular volume 98.1 fL 80.0-96.0 Above high normal Mean Corpuscular Volume [facility]HA ([facility]) lymph % 23.7 % 24.0-44.0 Below low normal Lymph % [facility] ( [facility]) platelet count, automated 153 10 150-450 Platelet C ount, Automated [facility] ([facility]) mono % 6.8 % 2.0-8.0 Page % [facility] ([facility]) neutrophils % 67.5 % 36.0-66.0 Above high normal Neutrophils % A THENA ([facility]) nucleated red blood cell % 0.0 % 0-0 Nucleated Red Blood Cell % [facility] ([facility]) immature granulocyte % 0.4 % 0-3.0 Immature Gran ulocyte % [facility] ([facility]) baso % 0.2 % 0.0-1.0 Baso % [facility] ([facility]) eos % 1.4 % 0.0-3.0 Eos % [facility] ([facility]) lymph # 1.3 10 1.5-5.0 Below low normal Lymph # [facility]HA ( [facility]) mono # 0.4 10 0.0-0.8 Page # [facility] ([facility]) neutrophils # 3.8 10 1.5-8.5 Neutrophils # [facility]HA ( [facility]) eos # 0.1 10 0.0-0.5 Eos # [facility] ([facility]) baso # 0.0 10 0.0-0.2 Baso # [facility] ([facility]) ID Date Data Source [id number] 05/15/2020 09:30:00 AM EDT [place] ([facility]) Name Value Range Interpretation Code Description Data Ailyn rce(s) Supporting Document(s) estimated average glucose 103 mg/dL 60-110 Estimated Average Glucose [facility] ([facility]) Hemoglobin A1c/Hemoglobin.total in Blood 5.2 % Hemoglobin a1C [place] ([facility]) ID Date Data Source [id number] 05/15/2020 09:30:00 AM EDT [facility] ([facility]) Name Value Range Interpretation Code Description Data Ailyn rce(s) Supporting Document(s) thyroid stimulating hormone 1.950 uIU/mL 0.358-3.740 Thyroid Stimulating Hormone [place] ([facility]) ID Date Data Source [id number] 05/15/2020 09:30:00 AM EDT [facility] ([facility]) Name Value Range Interpretation Code Description Data Ailyn rce(s) Supporting Document(s) triglycerides level 65 mg/dL <150 Triglycerides Le eliel [facility] ([facility]) cholesterol level 172 mg/dL <200 Cholesterol Level [facility]HA ([facility]) HDL cholesterol 56 mg/dL >40 HDL Cholesterol ATHE ([facility]) non-HDL-C 116 mg/dL Non-hdl-c [facility] ([facility]) cholesterol risk ratio <5 Cholesterol R isk Ratio [facility] ([facility]) Cholesterol in LDL [Mass/volume] in Serum or Plasma 103 mg/dL <100 Above high normal LDL Cholesterol [facility] ([facility]) ID Date Data Source [id number] 05/15/2020 09:30:00 AM EDT [place] ([facility]) Name Value Range Interpretation Code Description Data Ailyn rce(s) Supporting Document(s) glucose, fasting 98 mg/dL 70-100 Glucose, Fasting AT [facility] ([facility]) blood urea nitrogen 12 mg/dL 7-18 Blood Urea Nitro gen [facility] ([facility]) creatinine for GFR 0.88 mg/dL 0.55-1.30 Creatinine for GF R [facility] ([facility]) glomerular filtration rate > 60.0 >60 Glomerula r Filtration Rate [facility] ([facility]) sodium level 138 mEq/L 136-145 Sodium Level [facility] ([facility]) anion gap 4 mEq/L 8-16 Below low normal Anion Gap AN[facility]HA ( [facility]) carbon dioxide level 26 mEq/L 21-32 Carbon Dioxide Level [facility] ([facility]) potassium serum 4.4 mEq/L 3.5-5.1 Potassium Serum AT[facility] ([facility]) chloride level 108 mEq/L 98-107 Above high normal Chloride Level [facility] ([facility]) alkaline phosphatase 67 U/L 45-117 Alkaline Phosph atase [facility] ([facility]) AST/SGOT 12 U/L 7-37 AST/SGOT [facility] ([facility]) calcium level 8.5 mg/dL 8.5-10.1 Calcium Level [facility] ( [facility]) ALT/SGPT 18 U/L 12-78 ALT/SGPT [facility] ([facility]) bilirubin,total 0.3 mg/dL 0.2-1.0 Bilirubin,total AT[facility] ([facility]) albumin 3.6 gm/dL 3.2-5.2 Albumin [facility] ([facility]) total protein 6.8 gm/dL 6.4-8.2 Total Protein [facility] ( [facility]) albumin/globulin ratio 1.2-2.2 Below low normal Albumin /globulin Ratio [facility] ([facility]) ID Date Data Source [id number] 05/15/2020 09:30:00 AM EDT [facility] ([facility]) Name Value Range Interpretation Code Description Data Ailyn rce(s) Supporting Document(s) white blood count 5.6 10 4.0-10.0 White Blood Count [facility] ([facility]) red blood count 4.26 10 4.00-5.40 Red Blood Count AT[facility] ([facility]) hematocrit 41.8 % 36.0-47.0 Hematocrit [facility] ([facility]) mean corpuscular volume 98.1 fL 80.0-96.0 Above high normal Mean Corpuscular Volume [facility]HA ([facility]) hemoglobin 12.9 g/dL 12.0-15.5 Hemoglobin [facility] ([facility]) mean corpuscular hemoglobin 30.3 pg 27.0-33.0 Mean Cor puscular Hemoglobin [facility] ([facility]) mean corpuscular HGB conc 30.9 g/dL 32.0-36.5 Below low deanna l Mean Corpuscular HGB Conc [facility] ([facility]) neutrophils % 67.5 % 36.0-66.0 Above high normal Neutrophils % A THENA ([facility]) platelet count, automated 153 10 150-450 Platelet C ount, Automated [place] ([facility]) red cell distribution width 12.3 % 11.5-14.5 Red Cell Distribution Width [facility]HA ([facility]) lymph % 23.7 % 24.0-44.0 Below low normal Lymph % [place] ( [facility]) mono % 6.8 % 2.0-8.0 Page % [facility] ([facility]) eos % 1.4 % 0.0-3.0 Eos % [place] ([facility]) nucleated red blood cell % 0.0 % 0-0 Nucleated Red Blood Cell % [place] ([facility]) immature granulocyte % 0.4 % 0-3.0 Immature Gran ulocyte % [facility]HA ([facility]) baso % 0.2 % 0.0-1.0 Baso % [facility] ([facility]) neutrophils # 3.8 10 1.5-8.5 Neutrophils # [facility]HA ( [facility]) mono # 0.4 10 0.0-0.8 Page # [facility] ([facility]) lymph # 1.3 10 1.5-5.0 Below low normal Lymph # [facility]HA ( [facility]) eos # 0.1 10 0.0-0.5 Eos # [facility] ([facility]) baso # 0.0 10 0.0-0.2 Baso # [facility] ([facility]) ID Date Data Source [id number] 05/15/2020 09:30:00 AM EDT [facility] ([facility]) Name Value Range Interpretation Code Description Data Ailyn rce(s) Supporting Document(s) Hemoglobin A1c/Hemoglobin.total in Blood 5.2 % Hemoglobin a1C [facility] ([facility]) estimated average glucose 103 mg/dL 60-110 Estimated Average Glucose [facility] ([facility]) ID Date Data Source [id number] 05/15/2020 09:30:00 AM EDT [place] ([facility]) Name Value Range Interpretation Code Description Data Ailyn rce(s) Supporting Document(s) thyroid stimulating hormone 1.950 uIU/mL 0.358-3.740 Thyroid Stimulating Hormone [place] ([facility]) ID Date Data Source [id number] 05/15/2020 09:30:00 AM EDT [place] ([facility]) Name Value Range Interpretation Code Description Data Ailyn rce(s) Supporting Document(s) triglycerides level 65 mg/dL <150 Triglycerides Le eliel [facility]HA ([facility]) cholesterol level 172 mg/dL <200 Cholesterol Level [facility]HA ([facility]) cholesterol risk ratio <5 Cholesterol R isk Ratio [facility] ([facility]) non-HDL-C 116 mg/dL Non-hdl-c [facility] ([facility]) HDL cholesterol 56 mg/dL >40 HDL Cholesterol ATHE NA ([facility]) Cholesterol in LDL [Mass/volume] in Serum or Plasma 103 mg/dL <100 Above high normal LDL Cholesterol [facility]HA ([facility]) ID Date Data Source [id number] 05/15/2020 09:30:00 AM EDT [facility] ([facility]) Name Value Range Interpretation Code Description Data Ailyn rce(s) Supporting Document(s) glucose, fasting 98 mg/dL 70-100 Glucose, Fasting [facility] ([facility]) creatinine for GFR 0.88 mg/dL 0.55-1.30 Creatinine for GF R [facility] ([facility]) blood urea nitrogen 12 mg/dL 7-18 Blood Urea Nitro gen [facility] ([facility]) potassium serum 4.4 mEq/L 3.5-5.1 Potassium Serum ATHE NA ([facility]) chloride level 108 mEq/L 98-107 Above high normal Chloride Level AN[facility]HA ([facility]) glomerular filtration rate > 60.0 >60 Glomerula r Filtration Rate [facility] ([facility]) sodium level 138 mEq/L 136-145 Sodium Level [facility]HA ([facility]) carbon dioxide level 26 mEq/L 21-32 Carbon Dioxide Level [facility] ([facility]) AST/SGOT 12 U/L 7-37 AST/SGOT [facility] ([facility]) anion gap 4 mEq/L 8-16 Below low normal Anion Gap AN[facility]HA ( [facility]) ALT/SGPT 18 U/L 12-78 ALT/SGPT [facility] ([facility]) calcium level 8.5 mg/dL 8.5-10.1 Calcium Level [facility] ( [facility]) total protein 6.8 gm/dL 6.4-8.2 Total Protein [facility] ( [facility]) albumin 3.6 gm/dL 3.2-5.2 Albumin [facility] ([facility]) alkaline phosphatase 67 U/L 45-117 Alkaline Phosph atase [facility] ([facility]) bilirubin,total 0.3 mg/dL 0.2-1.0 Bilirubin,total ATHE ([facility]) albumin/globulin ratio 1.2-2.2 Below low normal Albumin /globulin Ratio [facility] ([facility]) ID Date Data Source [id number] 05/15/2020 09:30:00 AM EDT [facility] ([facility]) Name Value Range Interpretation Code Description Data Ailyn rce(s) Supporting Document(s) white blood count 5.6 10 4.0-10.0 White Blood Count [facility] ([facility]) mean corpuscular volume 98.1 fL 80.0-96.0 Above high normal Mean Corpuscular Volume [facility] ([facility]) hematocrit 41.8 % 36.0-47.0 Hematocrit [facility] ([facility]) hemoglobin 12.9 g/dL 12.0-15.5 Hemoglobin [facility] ([facility]) red blood count 4.26 10 4.00-5.40 Red Blood Count ATHE NA ([facility]) red cell distribution width 12.3 % 11.5-14.5 Red Cell Distribution Width [facility] ([facility]) mean corpuscular hemoglobin 30.3 pg 27.0-33.0 Mean Cor puscular Hemoglobin [facility] ([facility]) platelet count, automated 153 10 150-450 Platelet C ount, Automated [facility] ([facility]) mean corpuscular HGB conc 30.9 g/dL 32.0-36.5 Below low deanna l Mean Corpuscular HGB Conc [facility] ([facility]) neutrophils % 67.5 % 36.0-66.0 Above high normal Neutrophils % A THENA ([facility]) mono % 6.8 % 2.0-8.0 Page % [facility] ([facility]) lymph % 23.7 % 24.0-44.0 Below low normal Lymph % [facility] ( [facility]) nucleated red blood cell % 0.0 % 0-0 Nucleated Red Blood Cell % [facility] ([facility]) eos % 1.4 % 0.0-3.0 Eos % [facility] ([facility]) baso % 0.2 % 0.0-1.0 Baso % [facility] ([facility]) immature granulocyte % 0.4 % 0-3.0 Immature Gran ulocyte % [facility] ([facility]) mono # 0.4 10 0.0-0.8 Page # [facility] ([facility]) neutrophils # 3.8 10 1.5-8.5 Neutrophils # [facility]HA ( [facility]) lymph # 1.3 10 1.5-5.0 Below low normal Lymph # [facility]HA ( [facility]) baso # 0.0 10 0.0-0.2 Baso # [facility] ([facility]) eos # 0.1 10 0.0-0.5 Eos # [facility] ([facility]) ID Date Data Source [id number] 05/15/2020 09:30:00 AM EDT [facility] ([facility]) Name Value Range Interpretation Code Description Data Ailyn rce(s) Supporting Document(s) Hemoglobin A1c/Hemoglobin.total in Blood 5.2 % Hemoglobin a1C [facility] ([facility]) estimated average glucose 103 mg/dL 60-110 Estimated Average Glucose [facility] ([facility]) ID Date Data Source [id number] 05/15/2020 09:30:00 AM EDT [facility] ([facility]) Name Value Range Interpretation Code Description Data Ailyn rce(s) Supporting Document(s) thyroid stimulating hormone 1.950 uIU/mL 0.358-3.740 Thyroid Stimulating Hormone [facility] ([facility]) ID Date Data Source [id number] 05/15/2020 09:30:00 AM EDT [facility] ([facility]) Name Value Range Interpretation Code Description Data Ailyn rce(s) Supporting Document(s) Cholesterol in LDL [Mass/volume] in Serum or Plasma 103 mg/dL <100 Above high normal LDL Cholesterol ANUSHA ([facility]) triglycerides level 65 mg/dL <150 Triglycerides Le eliel ANUSHA ([facility]) cholesterol level 172 mg/dL <200 Cholesterol Level ANUSHA ([facility]) HDL cholesterol 56 mg/dL >40 HDL Cholesterol ATHE NA ([facility]) cholesterol risk ratio <5 Cholesterol R isk Ratio ANUSHA ([facility]) non-HDL-C 116 mg/dL Non-hdl-c ANUSHA ([facility]) ID Date Data Source [id number] 05/15/2020 09:30:00 AM EDT ANUSHA ([facility]) Name Value Range Interpretation Code Description Data Ailyn rce(s) Supporting Document(s) glucose, fasting 98 mg/dL 70-100 Glucose, Fasting AT LAN ([facility]) creatinine for GFR 0.88 mg/dL 0.55-1.30 Creatinine for GF R ANUSHA ([facility]) sodium level 138 mEq/L 136-145 Sodium Level ANUSHA ([facility]) blood urea nitrogen 12 mg/dL 7-18 Blood Urea Nitro gen ANUSHA ([facility]) glomerular filtration rate > 60.0 >60 Glomerula r Filtration Rate ANUSHA ([facility]) carbon dioxide level 26 mEq/L 21-32 Carbon Dioxide Level ANUSHA ([facility]) chloride level 108 mEq/L 98-107 Above high normal Chloride Level ANUSHA ([facility]) potassium serum 4.4 mEq/L 3.5-5.1 Potassium Serum ATHE ([facility]) anion gap 4 mEq/L 8-16 Below low normal Anion Gap ANUSHA ( [facility]) calcium level 8.5 mg/dL 8.5-10.1 Calcium Level ANUSHA ( [facility]) ALT/SGPT 18 U/L 12-78 ALT/SGPT ANUSHA ([facility]) AST/SGOT 12 U/L 7-37 AST/SGOT ANUSHA ([facility]) alkaline phosphatase 67 U/L 45-117 Alkaline Phosph atase ANUSHA ([facility]) bilirubin,total 0.3 mg/dL 0.2-1.0 Bilirubin,total ATHE NA ([facility]) total protein 6.8 gm/dL 6.4-8.2 Total Protein ANUSHA ( [facility]) albumin 3.6 gm/dL 3.2-5.2 Albumin ANUSHA ([facility]) albumin/globulin ratio 1.2-2.2 Below low normal Albumin /globulin Ratio ANUSHA ([facility]) ID Date Data Source [id number] 05/15/2020 09:30:00 AM EDT ANUSHA ([facility]) Name Value Range Interpretation Code Description Data Ailyn rce(s) Supporting Document(s) red blood count 4.26 10 4.00-5.40 Red Blood Count ATHE NA ([facility]) white blood count 5.6 10 4.0-10.0 White Blood Count ANUSHA ([facility]) mean corpuscular volume 98.1 fL 80.0-96.0 Above high normal Mean Corpuscular Volume ANUSHA ([facility]) hematocrit 41.8 % 36.0-47.0 Hematocrit ANUSHA ([facility]) hemoglobin 12.9 g/dL 12.0-15.5 Hemoglobin ANUSHA ([facility]) red cell distribution width 12.3 % 11.5-14.5 Red Cell Distribution Width ANUSHA ([facility]) mean corpuscular HGB conc 30.9 g/dL 32.0-36.5 Below low deanna l Mean Corpuscular HGB Conc ANUSHA ([facility]) mean corpuscular hemoglobin 30.3 pg 27.0-33.0 Mean Cor puscular Hemoglobin ANUSHA ([facility]) platelet count, automated 153 10 150-450 Platelet C ount, Automated ANUSHA ([facility]) lymph % 23.7 % 24.0-44.0 Below low normal Lymph % [place] ( [facility]) neutrophils % 67.5 % 36.0-66.0 Above high normal Neutrophils % A THENA ([facility]) immature granulocyte % 0.4 % 0-3.0 Immature Gran ulocyte % ANUSHA ([facility]) mono % 6.8 % 2.0-8.0 Page % ANUSHA ([facility]) baso % 0.2 % 0.0-1.0 Baso % ANUSHA ([facility]) eos % 1.4 % 0.0-3.0 Eos % ANUSHA ([facility]) nucleated red blood cell % 0.0 % 0-0 Nucleated Red Blood Cell % ANUSHA ([facility]) lymph # 1.3 10 1.5-5.0 Below low normal Lymph # ANUSHA ( [facility]) neutrophils # 3.8 10 1.5-8.5 Neutrophils # ANUSHA ( [facility]) mono # 0.4 10 0.0-0.8 Page # ANUSHA ([facility]) baso # 0.0 10 0.0-0.2 Baso # ANUSHA ([facility]) eos # 0.1 10 0.0-0.5 Eos # ANUSHA ([facility]) ID Date Data Source [id number] 05/15/2020 09:30:00 AM EDT ANUSHA ([facility]) Name Value Range Interpretation Code Description Data Ailyn rce(s) Supporting Document(s) estimated average glucose 103 mg/dL 60-110 Estimated Average Glucose ANUSHA ([facility]) Hemoglobin A1c/Hemoglobin.total in Blood 5.2 % Hemoglobin a1C ANUSHA ([facility]) ID Date Data Source [id number] 05/15/2020 09:30:00 AM EDT ANUSHA ([facility]) Name Value Range Interpretation Code Description Data Ailyn rce(s) Supporting Document(s) thyroid stimulating hormone 1.950 uIU/mL 0.358-3.740 Thyroid Stimulating Hormone ANUSHA ([facility]) ID Date Data Source [id number] 05/15/2020 09:30:00 AM EDT ANUSHA ([facility]) Name Value Range Interpretation Code Description Data Ailyn rce(s) Supporting Document(s) cholesterol level 172 mg/dL <200 Cholesterol Level ANUSHA ([facility]) triglycerides level 65 mg/dL <150 Triglycerides Le eliel ANUSHA ([facility]) HDL cholesterol 56 mg/dL >40 HDL Cholesterol ATHE NA ([facility]) cholesterol risk ratio <5 Cholesterol R isk Ratio ANUSHA ([facility]) non-HDL-C 116 mg/dL Non-hdl-c ANUSHA ([facility]) Cholesterol in LDL [Mass/volume] in Serum or Plasma 103 mg/dL <100 Above high normal LDL Cholesterol ANUSHA ([facility]) ID Date Data Source [id number] 05/15/2020 09:30:00 AM EDT ANUSHA ([facility]) Name Value Range Interpretation Code Description Data Ailyn rce(s) Supporting Document(s) glucose, fasting 98 mg/dL 70-100 Glucose, Fasting AT LAN ([facility]) blood urea nitrogen 12 mg/dL 7-18 Blood Urea Nitro gen ANUSHA ([facility]) potassium serum 4.4 mEq/L 3.5-5.1 Potassium Serum ATHE ([facility]) creatinine for GFR 0.88 mg/dL 0.55-1.30 Creatinine for GF R ANUSHA ([facility]) glomerular filtration rate > 60.0 >60 Glomerula r Filtration Rate ANUSHA ([facility]) sodium level 138 mEq/L 136-145 Sodium Level ANUSHA ([facility]) carbon dioxide level 26 mEq/L 21-32 Carbon Dioxide Level ANUSHA ([facility]) chloride level 108 mEq/L 98-107 Above high normal Chloride Level ANUSHA ([facility]) calcium level 8.5 mg/dL 8.5-10.1 Calcium Level ANUSHA ( [facility]) anion gap 4 mEq/L 8-16 Below low normal Anion Gap ANUSHA ( [facility]) AST/SGOT 12 U/L 7-37 AST/SGOT ANUSHA ([facility]) alkaline phosphatase 67 U/L 45-117 Alkaline Phosph atase ANUSHA ([facility]) total protein 6.8 gm/dL 6.4-8.2 Total Protein ANUSHA ( [facility]) bilirubin,total 0.3 mg/dL 0.2-1.0 Bilirubin,total ATHE ([facility]) ALT/SGPT 18 U/L 12-78 ALT/SGPT ANUSHA ([facility]) albumin/globulin ratio 1.2-2.2 Below low normal Albumin /globulin Ratio ANUSHA ([facility]) albumin 3.6 gm/dL 3.2-5.2 Albumin ANUSHA ([facility]) ID Date Data Source [id number] 05/15/2020 09:30:00 AM EDT ANUSHA ([facility]) Name Value Range Interpretation Code Description Data Ailyn rce(s) Supporting Document(s) white blood count 5.6 10 4.0-10.0 White Blood Count ANUSHA ([facility]) hematocrit 41.8 % 36.0-47.0 Hematocrit ANUSHA ([facility]) red blood count 4.26 10 4.00-5.40 Red Blood Count ATHE NA ([facility]) hemoglobin 12.9 g/dL 12.0-15.5 Hemoglobin ANUSHA ([facility]) mean corpuscular hemoglobin 30.3 pg 27.0-33.0 Mean Cor puscular Hemoglobin ANUSHA ([facility]) mean corpuscular volume 98.1 fL 80.0-96.0 Above high normal Mean Corpuscular Volume ANUSHA ([facility]) mean corpuscular HGB conc 30.9 g/dL 32.0-36.5 Below low deanna l Mean Corpuscular HGB Conc ANUSHA ([facility]) neutrophils % 67.5 % 36.0-66.0 Above high normal Neutrophils % A THENA ([facility]) red cell distribution width 12.3 % 11.5-14.5 Red Cell Distribution Width ANUSHA ([facility]) platelet count, automated 153 10 150-450 Platelet C ount, Automated ANUSHA ([facility]) lymph % 23.7 % 24.0-44.0 Below low normal Lymph % ANUSHA ( [facility]) mono % 6.8 % 2.0-8.0 Page % ANUSHA ([facility]) immature granulocyte % 0.4 % 0-3.0 Immature Gran ulocyte % ANUSHA ([facility]) baso % 0.2 % 0.0-1.0 Baso % ANUSHA ([facility]) eos % 1.4 % 0.0-3.0 Eos % ANUSHA ([facility]) nucleated red blood cell % 0.0 % 0-0 Nucleated Red Blood Cell % ANUSHA ([facility]) lymph # 1.3 10 1.5-5.0 Below low normal Lymph # ANUSHA ( [facility]) eos # 0.1 10 0.0-0.5 Eos # ANUSHA ([facility]) neutrophils # 3.8 10 1.5-8.5 Neutrophils # ANUSHA ( [facility]) mono # 0.4 10 0.0-0.8 Page # ANUSHA ([facility]) baso # 0.0 10 0.0-0.2 Baso # ANUSHA ([facility]) ID Date Data Source [id number] 05/15/2020 09:30:00 AM EDT [place] ([facility]) Name Value Range Interpretation Code Description Data Ailyn rce(s) Supporting Document(s) estimated average glucose 103 mg/dL 60-110 Estimated Average Glucose ANUSHA ([facility]) Hemoglobin A1c/Hemoglobin.total in Blood 5.2 % Hemoglobin a1C ANUSHA ([facility]) ID Date Data Source [id number] 05/15/2020 09:30:00 AM EDT [place] ([facility]) Name Value Range Interpretation Code Description Data Ailyn rce(s) Supporting Document(s) thyroid stimulating hormone 1.950 uIU/mL 0.358-3.740 Thyroid Stimulating Hormone ANUSHA ([facility]) ID Date Data Source [id number] 05/15/2020 09:30:00 AM EDT ANUSHA ([facility]) Name Value Range Interpretation Code Description Data Ailyn rce(s) Supporting Document(s) cholesterol level 172 mg/dL <200 Cholesterol Level ANUSHA ([facility]) HDL cholesterol 56 mg/dL >40 HDL Cholesterol ATHE NA ([facility]) Cholesterol in LDL [Mass/volume] in Serum or Plasma 103 mg/dL <100 Above high normal LDL Cholesterol ANUSHA ([facility]) triglycerides level 65 mg/dL <150 Triglycerides Le eliel ANUSHA ([facility]) cholesterol risk ratio <5 Cholesterol R isk Ratio ANUSHA ([facility]) non-HDL-C 116 mg/dL Non-hdl-c ANUSHA ([facility]) ID Date Data Source [id number] 05/15/2020 09:30:00 AM EDT [place] ([facility]) Name Value Range Interpretation Code Description Data Ailyn rce(s) Supporting Document(s) blood urea nitrogen 12 mg/dL 7-18 Blood Urea Nitro gen ANUSHA ([facility]) creatinine for GFR 0.88 mg/dL 0.55-1.30 Creatinine for GF R [place] ([facility]) glucose, fasting 98 mg/dL 70-100 Glucose, Fasting AT [facility]) glomerular filtration rate > 60.0 >60 Glomerula r Filtration Rate ANUSHA ([facility]) chloride level 108 mEq/L 98-107 Above high normal Chloride Level [place] ([facility]) carbon dioxide level 26 mEq/L 21-32 Carbon Dioxide Level [place] ([facility]) potassium serum 4.4 mEq/L 3.5-5.1 Potassium Serum ATHE ([facility]) sodium level 138 mEq/L 136-145 Sodium Level ANUSHA ([facility]) calcium level 8.5 mg/dL 8.5-10.1 Calcium Level ANUSHA ( [facility]) AST/SGOT 12 U/L 7-37 AST/SGOT ANUSHA ([facility]) anion gap 4 mEq/L 8-16 Below low normal Anion Gap ANUSHA ( [facility]) bilirubin,total 0.3 mg/dL 0.2-1.0 Bilirubin,total ATHE ([facility]) total protein 6.8 gm/dL 6.4-8.2 Total Protein ANUSHA ( [facility]) alkaline phosphatase 67 U/L 45-117 Alkaline Phosph atase ANUSHA ([facility]) ALT/SGPT 18 U/L 12-78 ALT/SGPT [place] ([facility]) albumin 3.6 gm/dL 3.2-5.2 Albumin [place] ([facility]) albumin/globulin ratio 1.2-2.2 Below low normal Albumin /globulin Ratio ANUSHA ([facility]) ID Date Data Source [id number] 05/15/2020 09:30:00 AM EDT ANUSHA ([facility]) Name Value Range Interpretation Code Description Data Ailyn rce(s) Supporting Document(s) hemoglobin 12.9 g/dL 12.0-15.5 Hemoglobin ANUSHA ([facility]) red blood count 4.26 10 4.00-5.40 Red Blood Count ATHE ([facility]) white blood count 5.6 10 4.0-10.0 White Blood Count ANUSHA ([facility]) mean corpuscular hemoglobin 30.3 pg 27.0-33.0 Mean Cor puscular Hemoglobin ANUSHA ([facility]) mean corpuscular volume 98.1 fL 80.0-96.0 Above high normal Mean Corpuscular Volume ANUSHA ([facility]) hematocrit 41.8 % 36.0-47.0 Hematocrit ANUSHA ([facility]) mean corpuscular HGB conc 30.9 g/dL 32.0-36.5 Below low deanna l Mean Corpuscular HGB Conc ANUSHA ([facility]) red cell distribution width 12.3 % 11.5-14.5 Red Cell Distribution Width ANUSHA ([facility]) platelet count, automated 153 10 150-450 Platelet C ount, Automated ANUSHA ([facility]) neutrophils % 67.5 % 36.0-66.0 Above high normal Neutrophils % A THENA ([facility]) mono % 6.8 % 2.0-8.0 Page % ANUSHA ([facility]) baso % 0.2 % 0.0-1.0 Baso % ANUSHA ([facility]) eos % 1.4 % 0.0-3.0 Eos % ANUSHA ([facility]) lymph % 23.7 % 24.0-44.0 Below low normal Lymph % ANUSHA ( [facility]) nucleated red blood cell % 0.0 % 0-0 Nucleated Red Blood Cell % ANUSHA ([facility]) neutrophils # 3.8 10 1.5-8.5 Neutrophils # [place] ( [facility]) immature granulocyte % 0.4 % 0-3.0 Immature Gran ulocyte % ANUSHA ([facility]) lymph # 1.3 10 1.5-5.0 Below low normal Lymph # ANUSHA ( [facility]) baso # 0.0 10 0.0-0.2 Baso # ANUSHA ([facility]) mono # 0.4 10 0.0-0.8 Page # ANUSHA ([facility]) eos # 0.1 10 0.0-0.5 Eos # [place] ([facility]) ID Date Data Source [id number] 05/15/2020 09:30:00 AM EDT [place] ([facility]) Name Value Range Interpretation Code Description Data Ailyn rce(s) Supporting Document(s) Hemoglobin A1c/Hemoglobin.total in Blood 5.2 % Hemoglobin a1C [place] ([facility]) estimated average glucose 103 mg/dL 60-110 Estimated Average Glucose [place] ([facility]) ID Date Data Source [id number] 05/15/2020 09:30:00 AM EDT [place] ([facility]) Name Value Range Interpretation Code Description Data Ailyn rce(s) Supporting Document(s) thyroid stimulating hormone 1.950 uIU/mL 0.358-3.740 Thyroid Stimulating Hormone [place] ([facility]) ID Date Data Source [id number] 05/15/2020 09:30:00 AM EDT [facility]) Name Value Range Interpretation Code Description Data Ailyn rce(s) Supporting Document(s) cholesterol level 172 mg/dL <200 Cholesterol Level [place] ([facility]) triglycerides level 65 mg/dL <150 Triglycerides Le eliel ANUSHA ([facility]) Cholesterol in LDL [Mass/volume] in Serum or Plasma 103 mg/dL <100 Above high normal LDL Cholesterol ANUSHA ([facility]) HDL cholesterol 56 mg/dL >40 HDL Cholesterol ATHE ([facility]) cholesterol risk ratio <5 Cholesterol R isk Ratio ANUSHA ([facility]) non-HDL-C 116 mg/dL Non-hdl-c AN[facility]HA ([facility]) ID Date Data Source [id number] 05/15/2020 09:30:00 AM EDT ANUSHA ([facility]) Name Value Range Interpretation Code Description Data Ailyn rce(s) Supporting Document(s) blood urea nitrogen 12 mg/dL 7-18 Blood Urea Nitro gen ANUSHA ([facility]) glucose, fasting 98 mg/dL 70-100 Glucose, Fasting AT [facility] ([facility]) sodium level 138 mEq/L 136-145 Sodium Level ANUSHA ([facility]) glomerular filtration rate > 60.0 >60 Glomerula r Filtration Rate ANUSHA ([facility]) creatinine for GFR 0.88 mg/dL 0.55-1.30 Creatinine for GF R ANUSHA ([facility]) potassium serum 4.4 mEq/L 3.5-5.1 Potassium Serum ATHE ([facility]) calcium level 8.5 mg/dL 8.5-10.1 Calcium Level ANUSHA ( [facility]) anion gap 4 mEq/L 8-16 Below low normal Anion Gap ANUSHA ( [facility]) carbon dioxide level 26 mEq/L 21-32 Carbon Dioxide Level ANUSHA ([facility]) chloride level 108 mEq/L 98-107 Above high normal Chloride Level ANUSHA ([facility]) ALT/SGPT 18 U/L 12-78 ALT/SGPT [facility]HA ([facility]) alkaline phosphatase 67 U/L 45-117 Alkaline Phosph atase ANUSHA ([facility]) AST/SGOT 12 U/L 7-37 AST/SGOT AN[facility]HA ([facility]) bilirubin,total 0.3 mg/dL 0.2-1.0 Bilirubin,total ATHE ([facility]) total protein 6.8 gm/dL 6.4-8.2 Total Protein ANUSHA ( [facility]) albumin 3.6 gm/dL 3.2-5.2 Albumin ANUSHA ([facility]) albumin/globulin ratio 1.2-2.2 Below low normal Albumin /globulin Ratio ANUSHA ([facility]) ID Date Data Source [id number] 05/15/2020 09:30:00 AM EDT ANUSHA ([facility]) Name Value Range Interpretation Code Description Data Ailyn rce(s) Supporting Document(s) white blood count 5.6 10 4.0-10.0 White Blood Count ANUSHA ([facility]) hemoglobin 12.9 g/dL 12.0-15.5 Hemoglobin ANUSHA ([facility]) mean corpuscular volume 98.1 fL 80.0-96.0 Above high normal Mean Corpuscular Volume ANUSHA ([facility]) hematocrit 41.8 % 36.0-47.0 Hematocrit ANUSHA ([facility]) red blood count 4.26 10 4.00-5.40 Red Blood Count ATHE NA ([facility]) mean corpuscular HGB conc 30.9 g/dL 32.0-36.5 Below low deanna l Mean Corpuscular HGB Conc ANUSHA ([facility]) red cell distribution width 12.3 % 11.5-14.5 Red Cell Distribution Width ANUSHA ([facility]) mean corpuscular hemoglobin 30.3 pg 27.0-33.0 Mean Cor puscular Hemoglobin ANUSHA ([facility]) neutrophils % 67.5 % 36.0-66.0 Above high normal Neutrophils % A THENA ([facility]) lymph % 23.7 % 24.0-44.0 Below low normal Lymph % ANUSHA ( [facility]) mono % 6.8 % 2.0-8.0 Page % ANUSHA ([facility]) platelet count, automated 153 10 150-450 Platelet C ount, Automated ANUSHA ([facility]) eos % 1.4 % 0.0-3.0 Eos % ANUSHA ([facility]) immature granulocyte % 0.4 % 0-3.0 Immature Gran ulocyte % ANUSHA ([facility]) baso % 0.2 % 0.0-1.0 Baso % ANUSHA ([facility]) neutrophils # 3.8 10 1.5-8.5 Neutrophils # ANUSHA ( [facility]) mono # 0.4 10 0.0-0.8 Page # ANUSHA ([facility]) lymph # 1.3 10 1.5-5.0 Below low normal Lymph # ANUSHA ( [facility]) nucleated red blood cell % 0.0 % 0-0 Nucleated Red Blood Cell % ANUSHA ([facility]) baso # 0.0 10 0.0-0.2 Baso # ANUSHA ([facility]) eos # 0.1 10 0.0-0.5 Eos # ANUSHA ([facility]) ID Date Data Source [id number] 05/15/2020 09:30:00 AM EDT [place] ([facility]) Name Value Range Interpretation Code Description Data Ailyn rce(s) Supporting Document(s) estimated average glucose 103 mg/dL 60-110 Estimated Average Glucose [place] ([facility]) Hemoglobin A1c/Hemoglobin.total in Blood 5.2 % Hemoglobin a1C [place] ([facility]) ID Date Data Source [id number] 05/15/2020 09:30:00 AM EDT ANUSHA ([facility]) Name Value Range Interpretation Code Description Data Ailyn rce(s) Supporting Document(s) thyroid stimulating hormone 1.950 uIU/mL 0.358-3.740 Thyroid Stimulating Hormone [place] ([facility]) ID Date Data Source [id number] 05/15/2020 09:30:00 AM EDT [place] ([facility]) Name Value Range Interpretation Code Description Data Ailyn rce(s) Supporting Document(s) triglycerides level 65 mg/dL <150 Triglycerides Le eliel ANUSHA ([facility]) Cholesterol in LDL [Mass/volume] in Serum or Plasma 103 mg/dL <100 Above high normal LDL Cholesterol ANUSHA ([facility]) HDL cholesterol 56 mg/dL >40 HDL Cholesterol ATHE NA ([facility]) cholesterol level 172 mg/dL <200 Cholesterol Level ANUSHA ([facility]) non-HDL-C 116 mg/dL Non-hdl-c ANUSHA ([facility]) cholesterol risk ratio <5 Cholesterol R isk Ratio ANUSHA ([facility]) ID Date Data Source [id number] 05/15/2020 09:30:00 AM EDT [place] ([facility]) Name Value Range Interpretation Code Description Data Ailyn rce(s) Supporting Document(s) glucose, fasting 98 mg/dL 70-100 Glucose, Fasting AT [facility]) blood urea nitrogen 12 mg/dL 7-18 Blood Urea Nitro gen ANUSHA ([facility]) creatinine for GFR 0.88 mg/dL 0.55-1.30 Creatinine for GF R [facility]HA ([facility]) potassium serum 4.4 mEq/L 3.5-5.1 Potassium Serum ATHE ([facility]) glomerular filtration rate > 60.0 >60 Glomerula r Filtration Rate ANUSHA ([facility]) sodium level 138 mEq/L 136-145 Sodium Level ANUSHA ([facility]) anion gap 4 mEq/L 8-16 Below low normal Anion Gap ANUSHA ( [facility]) chloride level 108 mEq/L 98-107 Above high normal Chloride Level ANUSHA ([facility]) carbon dioxide level 26 mEq/L 21-32 Carbon Dioxide Level ANUSHA ([facility]) AST/SGOT 12 U/L 7-37 AST/SGOT [facility] ([facility]) ALT/SGPT 18 U/L 12-78 ALT/SGPT [facility] ([facility]) calcium level 8.5 mg/dL 8.5-10.1 Calcium Level ANUSHA ( [facility]) alkaline phosphatase 67 U/L 45-117 Alkaline Phosph atase AN[facility]HA ([facility]) albumin 3.6 gm/dL 3.2-5.2 Albumin AN[facility]HA ([facility]) total protein 6.8 gm/dL 6.4-8.2 Total Protein NAUSHA ( [facility]) bilirubin,total 0.3 mg/dL 0.2-1.0 Bilirubin,total ATHE NA ([facility]) albumin/globulin ratio 1.2-2.2 Below low normal Albumin /globulin Ratio ANUSHA ([facility]) ID Date Data Source [id number] 05/15/2020 09:30:00 AM EDT [place] ([facility]) Name Value Range Interpretation Code Description Data Ailyn rce(s) Supporting Document(s) white blood count 5.6 10 4.0-10.0 White Blood Count [facility]HA ([facility]) hemoglobin 12.9 g/dL 12.0-15.5 Hemoglobin [facility] ([facility]) red blood count 4.26 10 4.00-5.40 Red Blood Count ATHE NA ([facility]) hematocrit 41.8 % 36.0-47.0 Hematocrit [facility]HA ([facility]) mean corpuscular volume 98.1 fL 80.0-96.0 Above high normal Mean Corpuscular Volume ANUSHA ([facility]) mean corpuscular hemoglobin 30.3 pg 27.0-33.0 Mean Cor puscular Hemoglobin AN[facility]HA ([facility]) red cell distribution width 12.3 % 11.5-14.5 Red Cell Distribution Width AN[facility]HA ([facility]) mean corpuscular HGB conc 30.9 g/dL 32.0-36.5 Below low denana l Mean Corpuscular HGB Conc AN[facility]HA ([facility]) mono % 6.8 % 2.0-8.0 Page % [facility] ([facility]) lymph % 23.7 % 24.0-44.0 Below low normal Lymph % ANUSHA ( [facility]) platelet count, automated 153 10 150-450 Platelet C ount, Automated ANUSHA ([facility]) neutrophils % 67.5 % 36.0-66.0 Above high normal Neutrophils % A HELDERA ([facility]) baso % 0.2 % 0.0-1.0 Baso % ANUSHA ([facility]) eos % 1.4 % 0.0-3.0 Eos % ANUSHA ([facility]) neutrophils # 3.8 10 1.5-8.5 Neutrophils # ANUSHA ( [facility]) nucleated red blood cell % 0.0 % 0-0 Nucleated Red Blood Cell % ANUSHA ([facility]) immature granulocyte % 0.4 % 0-3.0 Immature Gran ulocyte % ANUSHA ([facility]) mono # 0.4 10 0.0-0.8 Page # [place] ([facility]) eos # 0.1 10 0.0-0.5 Eos # ANUSHA ([facility]) lymph # 1.3 10 1.5-5.0 Below low normal Lymph # ANUSHA ( [facility]) baso # 0.0 10 0.0-0.2 Baso # ANUSHA ([facility]) ID Date Data Source [id number] 01/13/2020 12:00:00 AM EST [facility] Name Value Range Interpretation Code Description Data Ailyn rce(s) Supporting Document(s) SARS coronavirus 2 RNA [Presence] in Res piratory specimen by FRANCESCO with probe detection [facility] This lab was ordered by Jose Argueta and reported by [facility]. Procedure Social History No Information Vital Signs ID Date Data Source UNK Name Value Range Interpretation Code Description Data Source(s) Body height 68 [in_i] 68 [in_i] ANUSHA ([facility]) Body height 68 [in_i] 68 [in_i] ANUSHA ([facility]) Body height 68 [in_i] 68 [in_i] ANUSHA ([facility]) Body mass index (BMI) [Ratio] 30.4 kg/m2 30.4 k g/m2 ANUSHA ([facility]) Systolic blood pressure 129 mm[Hg] 129 mm[Hg] A GALLO ([facility]) Body weight 3200 [oz_av] 3200 [oz_av] ANUSHA ([facility]) Diastolic blood pressure 79 mm[Hg] 79 mm[Hg] ANUSHA ([facility]) Diastolic blood pressure 79 mm[Hg] 79 mm[Hg] ANUSHA ([facility]) Body height 68 [in_i] 68 [in_i] ANUSHA ([facility]) Body mass index (BMI) [Ratio] 30.4 kg/m2 30.4 k g/m2 ANUSHA ([facility]) Systolic blood pressure 129 mm[Hg] 129 mm[Hg] A THENA ([facility]) Body weight 3200 [oz_av] 3200 [oz_av] ANUSHA ([facility]) Diastolic blood pressure 79 mm[Hg] 79 mm[Hg] ANUSHA ([facility]) Body height 68 [in_i] 68 [in_i] ANUSHA ([facility]) Body mass index (BMI) [Ratio] 30.4 kg/m2 30.4 k g/m2 ANUSHA ([facility]) Systolic blood pressure 129 mm[Hg] 129 mm[Hg] A THENA ([facility]) Body weight 3200 [oz_av] 3200 [oz_av] ANUSHA ([facility]) Systolic blood pressure 120 mm[Hg] 120 mm[Hg] M EDLUIS ALBERTO ([facility], ) Diastolic blood pressure 58 mm[Hg] 58 mm[Hg] MEDENT ([facility], ) Body temperature 98.6 [degF] 98.6 [degF] MEDENT ([facility], ) Body height 68 [in_i] 68 [in_i] MEDENT ([facility], ) 5'8" Body weight 196.25 [lb_av] 196.25 [lb_av] MEDEN T ([facility], ) Body mass index (BMI) [Ratio] 29.8 kg/m2 29.8 k g/m2 [facility] ([facility], ) [place] body weight 140 [lb_av] 140 [lb_av] MEDEN T ([facility], ) Body weight 89.019 kg 89.019 kg MEDENT ([facility]) Body surface area Derived from formula 2.03 m2 2.03 [facility]2 [facility] Body height 68 [in_i] 68 [in_i] MEDENT ([facility]) 5'8" Body weight 206.00 [lb_av] 206.00 [lb_av] MEDEN T ([facility]) Body mass index (BMI) [Ratio] 31.3 kg/m2 31.3 k g/m2 MEDENT ([facility]) Systolic blood pressure 119 mm[Hg] 119 mm[Hg] M EDENT ([facility]) Body height 68 [in_i] 68 [in_i] MEDENT ([facility]) 5'8" [place] body weight 140 [lb_av] 140 [lb_av] MEDEN T ([facility]) Diastolic blood pressure 76 mm[Hg] 76 mm[Hg] [facility] ([facility]) Heart rate 74 /min 74 /min [facility] ([facility]) Body temperature 98.5 [degF] 98.5 [degF] [facility] ([facility]) Body weight 207.50 [lb_av] 207.50 [lb_av] MEDEN T ([facility]) Body mass index (BMI) [Ratio] 31.5 kg/m2 31.5 k g/m2 [facility] ([facility]) Body weight 94.122 kg 94.122 kg [facility] ([facility]) Body surface area Derived from formula 2.08 m2 2.08 m2 [facility] ([facility]) Body height 68 [in_i] 68 [in_i] MEDENT ([facility]) 5'8" Body weight 209.25 [lb_av] 209.25 [lb_av] MEDEN T ([facility]) Body mass index (BMI) [Ratio] 31.8 kg/m2 31.8 k g/m2 [facility] ([facility]) [place] body weight 140 [lb_av] 140 [lb_av] MEDEN T ([facility]) Systolic blood pressure 114 mm[Hg] 114 mm[Hg] M EDENT ([facility]) Diastolic blood pressure 58 mm[Hg] 58 mm[Hg] [facility] ([facility]) Body weight 94.916 kg 94.916 kg [facility] ([facility]) Body surface area Derived from formula 2.08 m2 2.08 m2 [facility] ([facility]) Body height 68 [in_i] 68 [in_i] [facility] ([facility]) 5'8" Body weight 209.25 [lb_av] 209.25 [facility]_av] [facility] Body mass index (BMI) [Ratio] 31.8 kg/m2 31.8 k g/m2 [facility] ([facility]) [place] body weight 140 [lb_av] 140 [lb_av] MEDEN T ([facility]) Body weight 94.916 kg 94.916 kg [facility] ([facility]) Body surface area Derived from formula 2.08 m2 2.08 m2 [facility] ([facility]) Diastolic blood pressure 73 mm[Hg] 73 mm[Hg] ANUSHA ([facility]) Body mass index (BMI) [Ratio] 31.4 kg/m2 31.4 k g/m2 [place] ([facility]) Body height 68 [in_i] 68 [in_i] ANUSHA ([facility]) Systolic blood pressure 106 mm[Hg] 106 mm[Hg] A [facility] ([facility]) Body weight 3300 [oz_av] 3300 [oz_av] ANUSHA ([facility]) Diastolic blood pressure 73 mm[Hg] 73 mm[Hg] ANUSHA ([facility]) Body height 68 [in_i] 68 [in_i] ANUSHA ([facility]) Body mass index (BMI) [Ratio] 31.4 kg/m2 31.4 k g/m2 ANUSHA ([facility]) Systolic blood pressure 106 mm[Hg] 106 mm[Hg] A [facility] ([facility]) Body weight 3300 [oz_av] 3300 [oz_av] ANUSHA ([facility]) Diastolic blood pressure 73 mm[Hg] 73 mm[Hg] ANUSHA ([facility]) Body height 68 [in_i] 68 [in_i] ANUSHA ([facility]) Body mass index (BMI) [Ratio] 31.4 kg/m2 31.4 k g/m2 ANUSHA ([facility]) Systolic blood pressure 106 mm[Hg] 106 mm[Hg] A THENA ([facility]) Body weight 3300 [oz_av] 3300 [oz_av] ANUSHA ([facility]) Diastolic blood pressure 73 mm[Hg] 73 mm[Hg] ANUSHA ([facility]) Body height 68 [in_i] 68 [in_i] ANUSHA ([facility]) Body mass index (BMI) [Ratio] 31.4 kg/m2 31.4 k g/m2 ANUSHA ([facility]) Systolic blood pressure 106 mm[Hg] 106 mm[Hg] A THENA ([facility]) Body weight 3300 [oz_av] 3300 [oz_av] ANUSHA ([facility]) Diastolic blood pressure 73 mm[Hg] 73 mm[Hg] ANUSHA ([facility]) Body height 68 [in_i] 68 [in_i] ANUSHA ([facility]) Body mass index (BMI) [Ratio] 31.4 kg/m2 31.4 k g/m2 ANUSHA ([facility]) Systolic blood pressure 106 mm[Hg] 106 mm[Hg] A THENA ([facility]) Body weight 3300 [oz_av] 3300 [oz_av] ANUSHA ([facility]) Diastolic blood pressure 73 mm[Hg] 73 mm[Hg] ANUSHA ([facility]) Body height 68 [in_i] 68 [in_i] ANUSHA ([facility]) Body mass index (BMI) [Ratio] 31.4 kg/m2 31.4 k g/m2 ANUSHA ([facility]) Systolic blood pressure 106 mm[Hg] 106 mm[Hg] A THENA ([facility]) Body weight 3300 [oz_av] 3300 [oz_av] ANUSHA ([facility]) Diastolic blood pressure 73 mm[Hg] 73 mm[Hg] ANUSHA ([facility]) Body height 68 [in_i] 68 [in_i] ANUSHA ([facility]) Body mass index (BMI) [Ratio] 31.4 kg/m2 31.4 k g/m2 ANUSHA ([facility]) Systolic blood pressure 106 mm[Hg] 106 mm[Hg] A HELDERA ([facility]) Body weight 3300 [oz_av] 3300 [oz_av] ANUSHA ([facility]) Diastolic blood pressure 73 mm[Hg] 73 mm[Hg] ANUSHA ([facility]) Body height 68 [in_i] 68 [in_i] ANUSHA ([facility]) Body mass index (BMI) [Ratio] 31.4 kg/m2 31.4 k g/m2 ANUSHA ([facility]) Systolic blood pressure 106 mm[Hg] 106 mm[Hg] A HELDERA ([facility]) Body weight 3300 [oz_av] 3300 [oz_av] ANUSHA ([facility]) Diastolic blood pressure 73 mm[Hg] 73 mm[Hg] ANUSHA ([facility]) Body height 68 [in_i] 68 [in_i] ANUSHA ([facility]) Body mass index (BMI) [Ratio] 31.4 kg/m2 31.4 k g/m2 ANUSHA ([facility]) Systolic blood pressure 106 mm[Hg] 106 mm[Hg] A HELDERA ([facility]) Body weight 3300 [oz_av] 3300 [oz_av] ANUSHA ([facility]) Body height 68 [in_i] 68 [in_i] TIERRA ([facility]) 5'8" Body weight 204.38 [lb_av] 204.38 [lb_av] MEDEN T ([facility], ) Body mass index (BMI) [Ratio] 31.1 kg/m2 31.1 k g/m2 TIERRA ([facility], ) [place] body weight 140 [lb_av] 140 [lb_av] MEDEN T ([facility]) Body weight 92.704 kg 92.704 kg MEDENT ([facility]) Body surface area Derived from formula 2.06 m2 2.06 m2 [facility] ([facility]) Body height 68 [in_i] 68 [in_i] MEDENT ([facility]) 5'8" Body weight 204.38 [lb_av] 204.38 [lb_av] MEDEN T ([facility]) Body mass index (BMI) [Ratio] 31.1 kg/m2 31.1 k g/m2 [facility] ([facility]) [place] body weight 140 [lb_av] 140 [lb_av] MEDEN T ([facility]) Systolic blood pressure 124 mm[Hg] 124 mm[Hg] M [facility] ([facility]) Diastolic blood pressure 78 mm[Hg] 78 mm[Hg] [facility] ([facility]) Body weight 92.704 kg 92.704 kg [facility] ([facility]) Body surface area Derived from formula 2.06 m2 2.06 m2 [facility] ([facility]) Systolic blood pressure 110 mm[Hg] 110 mm[Hg] M [facility] ([facility]) Diastolic blood pressure 75 mm[Hg] 75 mm[Hg] [facility] ([facility]) Heart rate 75 /min 75 /min [facility] ([facility]) Body height 68 [in_i] 68 [in_i] [facility] ([facility]) 5'8" Body weight 213.00 [lb_av] 213.00 [lb_av] MEDEN T ([facility]) Body mass index (BMI) [Ratio] 32.4 kg/m2 32.4 k g/m2 [facility] ([facility]) [place] body weight 140 [lb_av] 140 [lb_av] MEDEN T ([facility]) Body weight 96.617 kg 96.617 kg [facility] ([facility]) Body surface area Derived from formula 2.10 m2 2.10 m2 [facility] ([facility], ) Diastolic blood pressure 72 mm[Hg] 72 mm[Hg] ANUSHA ([facility]) Body height 68 [in_i] 68 [in_i] ANUSHA ([facility]) Body mass index (BMI) [Ratio] 32.6 kg/m2 32.6 k g/m2 ANUSHA ([facility]) Systolic blood pressure 106 mm[Hg] 106 mm[Hg] A THENA ([facility]) Body weight 3430 [oz_av] 3430 [oz_av] ANUSHA ([facility]) Diastolic blood pressure 72 mm[Hg] 72 mm[Hg] ANUSHA ([facility]) Body height 68 [in_i] 68 [in_i] ANUSHA ([facility]) Body mass index (BMI) [Ratio] 32.6 kg/m2 32.6 k g/m2 ANUSHA ([facility]) Systolic blood pressure 106 mm[Hg] 106 mm[Hg] A [facility] ([facility]) Body weight 3430 [oz_av] 3430 [oz_av] ANUSHA ([facility]) Diastolic blood pressure 72 mm[Hg] 72 mm[Hg] ANUSHA ([facility]) Body height 68 [in_i] 68 [in_i] ANUSHA ([facility]) Body mass index (BMI) [Ratio] 32.6 kg/m2 32.6 k g/m2 ANUSHA ([facility]) Systolic blood pressure 106 mm[Hg] 106 mm[Hg] A THENA ([facility]) Body weight 3430 [oz_av] 3430 [oz_av] ANUSHA ([facility]) Diastolic blood pressure 72 mm[Hg] 72 mm[Hg] ANUSHA ([facility]) Body height 68 [in_i] 68 [in_i] ANUSHA ([facility]) Body mass index (BMI) [Ratio] 32.6 kg/m2 32.6 k g/m2 ANUSHA ([facility]) Systolic blood pressure 106 mm[Hg] 106 mm[Hg] A THENA ([facility]) Body weight 3430 [oz_av] 3430 [oz_av] ANUSHA ([facility]) Diastolic blood pressure 72 mm[Hg] 72 mm[Hg] ANUSHA ([facility]) Body height 68 [in_i] 68 [in_i] ANUSHA ([facility]) Body mass index (BMI) [Ratio] 32.6 kg/m2 32.6 k g/m2 ANUSHA ([facility]) Systolic blood pressure 106 mm[Hg] 106 mm[Hg] A THENA ([facility]) Body weight 3430 [oz_av] 3430 [oz_av] ANUSHA ([facility]) Diastolic blood pressure 72 mm[Hg] 72 mm[Hg] ANUSHA ([facility]) Body height 68 [in_i] 68 [in_i] ANUSHA ([facility]) Body mass index (BMI) [Ratio] 32.6 kg/m2 32.6 k g/m2 ANUSHA ([facility]) Systolic blood pressure 106 mm[Hg] 106 mm[Hg] A THENA ([facility]) Body weight 3430 [oz_av] 3430 [oz_av] ANUSHA ([facility]) Diastolic blood pressure 72 mm[Hg] 72 mm[Hg] ANUSHA ([facility]) Body height 68 [in_i] 68 [in_i] ANUSHA ([facility]) Body mass index (BMI) [Ratio] 32.6 kg/m2 32.6 k g/m2 ANUSHA ([facility]) Systolic blood pressure 106 mm[Hg] 106 mm[Hg] A THENA ([facility]) Body weight 3430 [oz_av] 3430 [oz_av] ANUSHA ([facility]) Diastolic blood pressure 72 mm[Hg] 72 mm[Hg] ANUSHA ([facility]) Body height 68 [in_i] 68 [in_i] ANUSHA ([facility]) Body mass index (BMI) [Ratio] 32.6 kg/m2 32.6 k g/m2 ANUSHA ([facility]) Systolic blood pressure 106 mm[Hg] 106 mm[Hg] A THENA ([facility]) Body weight 3430 [oz_av] 3430 [oz_av] ANUSHA ([facility]) Diastolic blood pressure 72 mm[Hg] 72 mm[Hg] ANUSHA ([facility]) Body height 68 [in_i] 68 [in_i] ANUSHA ([facility]) Body mass index (BMI) [Ratio] 32.6 kg/m2 32.6 k g/m2 ANUSHA ([facility]) Systolic blood pressure 106 mm[Hg] 106 mm[Hg] A THENA ([facility]) Body weight 3430 [oz_av] 3430 [oz_av] ANUSHA ([facility]) Diastolic blood pressure 72 mm[Hg] 72 mm[Hg] ANUSHA ([facility]) Body height 68 [in_i] 68 [in_i] ANUSHA ([facility]) Body mass index (BMI) [Ratio] 32.6 kg/m2 32.6 k g/m2 ANUSHA ([facility]) Systolic blood pressure 106 mm[Hg] 106 mm[Hg] A THENA ([facility]) Body weight 3430 [oz_av] 3430 [oz_av] ANUSHA ([facility]) Diastolic blood pressure 72 mm[Hg] 72 mm[Hg] ANUSHA ([facility]) Body height 68 [in_i] 68 [in_i] ANUSHA ([facility]) Body mass index (BMI) [Ratio] 32.6 kg/m2 32.6 k g/m2 ANUSHA ([facility]) Systolic blood pressure 106 mm[Hg] 106 mm[Hg] A THENA ([facility]) Body weight 3430 [oz_av] 3430 [oz_av] ANUSHA ([facility]) Diastolic blood pressure 72 mm[Hg] 72 mm[Hg] ANUSHA ([facility]) Body height 68 [in_i] 68 [in_i] ANUSHA ([facility]) Body mass index (BMI) [Ratio] 32.6 kg/m2 32.6 k g/m2 ANUSHA ([facility]) Systolic blood pressure 106 mm[Hg] 106 mm[Hg] A THENA ([facility]) Body weight 3430 [oz_av] 3430 [oz_av] ANUSHA ([facility]) Diastolic blood pressure 72 mm[Hg] 72 mm[Hg] ANUSHA ([facility]) Body height 68 [in_i] 68 [in_i] ANUSHA ([facility]) Body mass index (BMI) [Ratio] 32.6 kg/m2 32.6 k g/m2 ANUSHA ([facility]) Systolic blood pressure 106 mm[Hg] 106 mm[Hg] Ajith THENA ([facility]) Body weight 3430 [oz_av] 3430 [oz_av] ANUSHA ([facility]) Patient Treatment Plan of Care Planned Activity Planned Date Details Description Data Source (s) tramadol hydrochloride 50 MG Oral Tablet ANUSHA ([facility]) Suprep Bowel Prep Kit 17.5 gram-3.13 gra m-1.6 gram oral solution TAKE DIRECTED BY DOCTOR ANUSHA ([facility]) Amoxicillin 875 MG Oral Tablet ANUSHA ([facility]) tramadol hydrochloride 50 MG Oral Tablet ANUSHA ([facility]) Suprep Bowel Prep Kit 17.5 gram-3.13 gra m-1.6 gram oral solution TAKE DIRECTED BY DOCTOR ANUSHA ([facility]) Amoxicillin 875 MG Oral Tablet ANUSHA ([facility]) tramadol hydrochloride 50 MG Oral Tablet ANUSHA ([facility]) Suprep Bowel Prep Kit 17.5 gram-3.13 gra m-1.6 gram oral solution TAKE DIRECTED BY DOCTOR ANUSHA ([facility]) Amoxicillin 875 MG Oral Tablet ANUSHA ([facility]) Suprep Bowel Prep Kit 17.5 gram-3.13 gra m-1.6 gram oral solution TAKE DIRECTED BY DOCTOR ANUSHA ([facility]) Amoxicillin 875 MG Oral Tablet ANUSHA ([facility]) Suprep Bowel Prep Kit 17.5 gram-3.13 gra m-1.6 gram oral solution TAKE DIRECTED BY DOCTOR ANUSHA ([facility]) Amoxicillin 875 MG Oral Tablet ANUSHA ([facility]) Suprep Bowel Prep Kit 17.5 gram-3.13 gra m-1.6 gram oral solution TAKE DIRECTED BY DOCTOR ANUSHA ([facility]) Amoxicillin 875 MG Oral Tablet ANUSHA ([facility])
[2020-12-18 12:12] LABS: HCG, SERUM QUALITATIVE NEGATIVE (NEGATIVE)
--- NOTE | 2020-12-18 12:23 | REP ---
INDICATION: post avinash RUQ abd pain, r/o infection/retained stone. COMPARISON: 10/02/2020. TECHNIQUE: Real-time sonographic evaluation of right upper quadrant performed. FINDINGS: There has been a prior cholecystectomy.. There is no intrahepatic or extrahepatic biliary dilatation, common bile duct measures 5 mm in maximum diameter. The liver demonstrates homogeneous echotexture with no gross mass. The pancreas is not seen due to overlying bowel gas. The right kidney demonstrates no hydronephrosis, with a normal size of 9.4 cm in length. No free fluid is seen. IMPRESSION: Status post cholecystectomy. No evidence of biliary dilatation, free fluid or other abnormality. <Electronically signed by Pernell Strickland > 12/18/20 [id number]
== END 2020-12-18 13:33 | disposition home or self-care (01) ==
LOC: M ED 08:50
DX: G89.18 Other acute postprocedural pain (principal); R10.11 Right upper quadrant pain

== ENCOUNTER → 2021-03-15 | Outpatient (CLI) | payer OTHER ==
[~2021-03-15] MED LIST changes: -OMEP-221 PO; +OMEP40CA5 PO
== END ==
LOC: M PLARAD 13:27
PROVIDERS: ATTEND Physician Assistant Surgical
DX: M46.92 Unspecified inflammatory spondylopathy, cervical region (principal); M48.02 Spinal stenosis, cervical region; M51.27 Other intervertebral disc displacement, lumbosacral region; M51.36 Other intervertebral disc degeneration, lumbar region; M51.37 Other intervertebral disc degeneration, lumbosacral region; M47.892 Other spondylosis, cervical region; M51.46 Schmorl's nodes, lumbar region; M47.817 Spondylosis without myelopathy or radiculopathy, lumbosacral region

== ENCOUNTER → 2021-07-10 | Outpatient (CLI) | payer OTHER ==
[2021-07-10 10:00] LABS: PLATELET COUNT, AUTOMATED 184 10^3/uL (150-450)
[2021-07-10 10:13] LABS: INR 0.95; PROTHROMBIN TIME 13.1 SECONDS (12.7-14.5)
[2021-07-10 10:14] LABS: PARTIAL THROMBOPLASTIN TIME 31.2 SECONDS (25.9-37.0)
[2021-07-10 10:23] LABS: HCG, SERUM QUALITATIVE NEGATIVE (NEGATIVE)
[2021-07-10 10:32] LABS: COLLAGEN EPINEPHRINE 86 SECONDS (74-162)
== END ==
LOC: M LAB 09:01
PROVIDERS: ATTEND Physician Assistant Surgical
DX: M47.26 Other spondylosis with radiculopathy, lumbar region (principal)